=== PATIENT | female | born 1990 | race Caucasian/White ===

== ENCOUNTER 2022-09-23 17:33 | Emergency (ER) | payer OTHER, SELFPAY ==
[2022-09-23 17:53] VITALS: BP 111/72; PULSE 71; RESP 16; TEMP 36.4; O2SAT 100; BMI 23.8
--- NOTE | 2022-09-23 18:00 | CT_ITS ---
[address] [address] Patient Name: CHIQUIS ESTES MRN: [id number] date: 1990 Sex: F Assigned Patient Location: ER Current Patient Location: ER Accession/Order Number: [id number] Exam Date: 09/23/2022 18:50 Report Date: 09/23/2022 19:16 At the request of: JEROEM ALMEIDA Procedure: CT abdomen pelvis w con EXAM: CT abdomen pelvis w con HISTORY: Abdominal pain COMPARISON: None. TECHNIQUE: Axial CT imaging was performed through the abdomen and pelvis with intravenous contrast. Multiplanar reformats were performed. Dose reduction techniques were achieved by using automated exposure control and/or adjustment of mA and/or kV according to patient size and/or use of iterative reconstruction technique. FINDINGS: Lung bases: Lung bases are clear. No pleural effusion. GI upper: Unremarkable. Liver: Normal size and contour. Gallbladder: No significant abnormality. No cholelithiasis. Biliary system: No intra or extrahepatic biliary ductal dilatation. Spleen: Normal size. Pancreas: Unremarkable. Adrenal glands: Normal adrenal glands. Kidneys/ureters: Normal contours. No hydronephrosis. No nephrolithiasis or ureterolithiasis. Vessels: No aneurysm. Lymph Nodes: No lymphadenopathy. Small bowel: No wall thickening or dilatation. Colon: No wall thickening or dilatation. Appendix: No findings of appendicitis. Peritoneal cavity: No free fluid or pneumoperitoneum. Lower : Retroflexed uterus. No significant abnormality of the uterus or adnexa. There is a 1.8 cm corpus luteal cyst in the left ovary. Bones: No acute bony abnormality. Soft tissues: No acute finding. Additional findings: None. CT/CT abdomen pelvis w con IMPRESSION: No acute abnormality.1.8 cm corpus luteal cyst in the left ovary. Electronically authenticated by: WARREN SALAZAR Date: 09/23/2022 19:16
--- NOTE | 2022-09-23 18:02 | ED.ABDPAIN1 ---
HPI - Abdominal Pain General Chief Complaint: Abdominal Pain Stated Complaint: ABDOMINAL PAIN Time Seen by Provider: 09/23/22 17:44 Source: patient Mode of arrival: walk-in Limitations: no limitations History of Present Illness HPI narrative: patient is a 32-year-old female to history of substance abuse well-known to this emergency department who presents to the Emergency Room for a one-week history of diffuse abdominal pain. She reports associated vomiting and diarrhea. She denies urinary symptoms. She reports temperatures as high as 99.0 Fahrenheit. She has had an associated migraine. She is not concerned for and has had a previous tubal ligation. She has had previous C-sections, no other abdominal surgeries. No sick contacts in the home. No upper respiratory symptoms. She states she took Tylenol and Benadryl last night for her migraine and went to bed but no medications of been taken for her abdominal pain or symptoms. Related Data Home Medications Medication Instructions Recorded Confirmed buprenorphine HCl 2 mg sublingual 2 mg sublingual QDAY 09/23/22 09/23/22 tablet clonidine HCl 0.1 mg tablet 0.1 mg PO Q12H 09/23/22 09/23/22 dicyclomine 10 mg capsule 10 mg PO TID 09/23/22 09/23/22 Previous Rx's Medication Instructions Recorded dicyclomine 20 mg tablet 20 mg PO QID PRN abdominal pain 09/23/22 #12 tabs ketorolac 10 mg tablet 10 mg PO TID PRN pain #10 tabs 09/23/22 promethazine 25 mg tablet 25 mg PO Q6H PRN nausea and 09/23/22 vomiting #12 tabs Allergies Allergy/AdvReac Type Severity Reaction Status Date / Time No Known Drug Allergies Allergy Verified 09/23/22 17:56 Review of Systems ROS Constitutional Denies: fever or chills Ears, nose, mouth, and throat Denies: throat pain or neck pain Cardiovascular Denies: chest pain Respiratory Denies: shortness of breath Gastrointestinal Reports: abdominal pain, nausea, vomiting and diarrhea Genitourinary Denies: painful urination Musculoskeletal Reports: back pain; Denies: neck pain Integumentary/Breast Denies: rash Neurological Denies: headache Allergic/Immunologic Denies: hives Exam Narrative Exam Narrative: Gen.: Awake, alert, in no distress Head: Normocephalic, atraumatic ENT: Moist mucous membranes Respiratory: No respiratory distress Cardio: Regular rate and rhythm Gastrointestinal: Abdomen is soft, nondistended and diffusely tender to palpation with no guarding Extremities: Moves extremities equally Psych: Normal mood and affect Neuro: No focal neuro deficit Skin: Warm, dry, intact Constitutional Vital Signs, click to edit/add: Last Vital Signs Temp 97.5 F L 09/23/22 17:53 Pulse 71 09/23/22 17:53 Resp 16 09/23/22 17:53 BP 111/72 09/23/22 17:53 Pulse Ox 100 09/23/22 17:53 O2 Del Method Room Air 09/23/22 17:53 Course Vital Signs Vital signs: Vital Signs Temperature 97.5 F L 09/23/22 17:53 Pulse Rate 71 09/23/22 17:53 Respiratory Rate 16 09/23/22 17:53 Blood Pressure 111/72 09/23/22 17:53 Pulse Oximetry 100 09/23/22 17:53 Oxygen Delivery Method Room Air 09/23/22 17:53 Temperature 97.5 F L 09/23/22 17:53 Pulse Rate 71 09/23/22 17:53 Respiratory Rate 16 09/23/22 17:53 Blood Pressure 111/72 09/23/22 17:53 Pulse Oximetry 100 09/23/22 17:53 Oxygen Delivery Method Room Air 09/23/22 17:53 MDM - Abdominal Pain MDM Narrative Medical decision making narrative: patient treated with IV fluids, Toradol, Levsin, Zofran. Lab studies, urine specimen and test are all within normal limits. CT of the abdomen and pelvis with IV contrast shows a 1.8 cm left ovarian cyst which likely is not accounting for the patient's vomiting, diarrhea and diffuse abdominal pain. She is discharged home with Bentyl and Phenergan to follow-up with PCP. Return to the Emergency Room if symptoms change or worsen. Abdomen is soft and benign at discharge, vital signs within normal limits. Medical Records Attestation: I reviewed the patient's medical records. Lab Data Attestation: I reviewed the patient's lab results. Labs: Lab Results 09/23/22 Range/Units 18:00 WBC 6.3 (4.0-11.0) 10^3/uL RBC 4.50 (4.20-5.40) 10^6/uL Hgb 12.7 (12.0-16.0) g/dL Hct 38.1 (36.0-48.0) % MCV 84.7 (81.0-99.0) fL MCH 28.2 (26.7-34.0) pg MCHC 33.3 (29.9-35.2) g/dL RDW 14.4 (11.0-15.0) % Plt Count 314 (150-450) 10^3/uL MPV 10.3 (9.5-13.5) fL Neut % (Auto) 56.5 (43.0-75.0) % Lymph % (Auto) 34.2 (20.5-60.0) % Dickson % (Auto) 8.4 (1.7-12.0) % Eos % (Auto) 0.0 L (0.9-7.0) % Baso % (Auto) 0.6 (0.2-2.0) % Neut # (Auto) 3.6 (1.4-6.5) 10^3/uL Lymph # (Auto) 2.2 (1.2-3.8) 10^3/uL Dickson # (Auto) 0.5 (0.3-0.8) 10^3/uL Eos # (Auto) 0.0 (0.0-0.7) 10^3/uL Baso # (Auto) 0.0 (0.0-0.1) 10^3/uL Abs Immat Gran (auto) 0.02 (0.00-0.03) 10^3/uL Imm/Tot Granulo (auto) 0.3 (0.0-0.5) % Sodium 140 (136-145) mmol/L Potassium 3.8 (3.5-5.1) mmol/L Chloride 106 (98-107) mmol/L Carbon Dioxide 23.4 (21.0-32.0) mmol/L Anion Gap 14.4 BUN 15.0 (7.0-18.0) mg/dL Creatinine 0.72 (0.55-1.02) mg/dL Est GFR ( Amer) >60 (>=60) Est GFR (Non-Af Amer) >60 (>=60) BUN/Creatinine Ratio 20.8 Glucose 89 (74-106) mg/dL Lactate 1.0 (0.4-2.0) mmol/L Calcium 8.7 (8.5-10.1) mg/dL Total Bilirubin 0.2 (0.2-1.0) mg/dL AST 15 (15-37) U/L ALT 19 (14-59) U/L Alkaline Phosphatase 64 (46-116) U/L Total Protein 7.7 (6.4-8.2) g/dL Albumin 4.1 (3.4-5.0) g/dL Globulin 3.6 g/dL Albumin/Globulin Ratio 1.1 Lipase 89.0 (73.0-393.0) U/L Urine Color Yellow (YELLOW) Urine Clarity Clear (CLEAR) Urine pH 5.5 (5.0-9.0) Ur Specific Warren >=1.030 A (1.005-1.025) Urine Protein Negative (NEG/TRACE) mg/dL Urine Glucose (UA) Negative (NEGATIVE) mg/dL Urine Ketones Negative (NEGATIVE) mg/dL Urine Occult Blood Negative (NEGATIVE) Urine Nitrite Negative (NEGATIVE) Urine Bilirubin Negative (NEGATIVE) Urine Urobilinogen 0.2 (0.2-1.0) EU/dL Ur Leukocyte Esterase Negative (NEGATIVE) Urine HCG, Qual Negative (NEGATIVE) Imaging Data CT scan - abdomen: Attestation: I have reviewed the pertinent imaging results. Radiologist's impression: Procedure: CT abdomen pelvis w con EXAM: CT abdomen pelvis w con HISTORY: Abdominal pain COMPARISON: None. TECHNIQUE: Axial CT imaging was performed through the abdomen and pelvis with intravenous contrast. Multiplanar reformats were performed. Dose reduction techniques were achieved by using automated exposure control and/or adjustment of mA and/or kV according to patient size and/or use of iterative reconstruction technique. FINDINGS: Lung bases: Lung bases are clear. No pleural effusion. GI upper: Unremarkable. Liver: Normal size and contour. Gallbladder: No significant abnormality. No cholelithiasis. Biliary system: No intra or extrahepatic biliary ductal dilatation. Spleen: Normal size. Pancreas: Unremarkable. Adrenal glands: Normal adrenal glands. Kidneys/ureters: Normal contours. No hydronephrosis. No nephrolithiasis or ureterolithiasis. Vessels: No aneurysm. Lymph Nodes: No lymphadenopathy. Small bowel: No wall thickening or dilatation. Colon: No wall thickening or dilatation. Appendix: No findings of appendicitis. Peritoneal cavity: No free fluid or pneumoperitoneum. Lower : Retroflexed uterus. No significant abnormality of the uterus or adnexa. There is a 1.8 cm corpus luteal cyst in the left ovary. Bones: No acute bony abnormality. Soft tissues: No acute finding. Additional findings: None. IMPRESSION: No acute abnormality.1.8 cm corpus luteal cyst in the left ovary. Electronically authenticated by: WARREN SALAZAR Date: 09/23/2022 19:16 Discharge Plan Discharge Chief Complaint: Abdominal Pain Clinical Impression: Abdominal pain Patient Disposition: Home, Self-Care Time of Disposition Decision: 19:24 Condition: Good Mode of Transportation: Private Vehicle Prescriptions / Home Meds: New ketorolac 10 mg tablet 10 mg PO TID PRN (Reason: pain) Qty: 10 0RF dicyclomine 20 mg tablet 20 mg PO QID PRN (Reason: abdominal pain) Qty: 12 0RF promethazine 25 mg tablet 25 mg PO Q6H PRN (Reason: nausea and vomiting) Qty: 12 0RF No Action dicyclomine 10 mg capsule 10 mg PO TID clonidine HCl 0.1 mg tablet 0.1 mg PO Q12H buprenorphine HCl 2 mg tablet, sublingual 2 mg SUBLINGUAL QDAY Instructions: Abdominal Pain (ED) Stand Alone Forms: Portal Instructions Referrals: Physician,Non-Staff, MD [Primary Care Provider] - 1 week Discharge Date/Time: 09/23/22 19:49
[2022-09-23] MEDS: 0.9 % SODIUM CHLORIDE 1,000 ML 999 ML IV (18:25)
[2022-09-23] MEDS: PROMETHAZINE HCL 25 MG/ML VIAL 12.5 MG IV (18:26)
[2022-09-23] MEDS: HYOSCYAMINE SULFATE 0.125 MG TAB.SUBL SL (18:26)
[2022-09-23] MEDS: KETOROLAC TROMETHAMINE 30 MG/ML VIAL 15 MG IVP (18:26)
[2022-09-23 18:28] LABS: Basophils Percent Auto 0.6 % (0.2-2.0); Hematocrit 38.1 % (36.0-48.0); Hemoglobin 12.7 g/dL (12.0-16.0); Immature Granulocytes Abs Auto 0.02 10^3/uL (0.00-0.03); Immature Granulocytes Pct Auto 0.3 % (0.0-0.5); Lymphocytes Absolute Auto 2.2 10^3/uL (1.2-3.8); Lymphocytes Percent Auto 34.2 % (20.5-60.0); Mean Corpuscular HGB Conc 33.3 g/dL (29.9-35.2); Mean Corpuscular Hemoglobin 28.2 pg (26.7-34.0); Mean Corpuscular Volume 84.7 fL (81.0-99.0); Mean Platelet Volume 10.3 fL (9.5-13.5); Monocytes Absolute Auto 0.5 10^3/uL (0.3-0.8); Monocytes Percent Auto 8.4 % (1.7-12.0); Neutrophils Absolute Auto 3.6 10^3/uL (1.4-6.5); Neutrophils Percent Auto 56.5 % (43.0-75.0); Platelet Count 314 10^3/uL (150-450); Red Cell Distribution Width 14.4 % (11.0-15.0); White Blood Count 6.3 10^3/uL (4.0-11.0)
[2022-09-23 18:29] LABS: Bilirubin Urine NEGATIVE (NEGATIVE); Blood Urine NEGATIVE (NEGATIVE); Clarity Urine CLEAR (CLEAR); Color Urine YELLOW (YELLOW); Glucose Urine UA NEGATIVE (NEGATIVE); Ketones Urine NEGATIVE (NEGATIVE); Leukocyte Esterase Urine NEGATIVE (NEGATIVE); Nitrite Urine NEGATIVE (NEGATIVE); Protein Urine NEGATIVE (NEG/TRACE); Specific Gravity Urine >=1.030 (1.005-1.025); Urobilinogen Urine 0.2 EU/dL (0.2-1.0); pH Urine 5.5 (5.0-9.0)
[2022-09-23 18:30] LABS: Urine Microscopic Indicated NO
[2022-09-23 18:42] LABS: HCG Qualitative NEGATIVE (NEGATIVE)
[2022-09-23 18:44] LABS: Alanine Aminotransferase 19 U/L (14-59); Albumin Globulin Ratio 1.1; Albumin Level 4.1 g/dL (3.4-5.0); Alkaline Phosphatase 64 U/L (46-116); Anion Gap 14.4; Aspartate Amino Transferase 15 U/L (15-37); BUN Creatinine Ratio 20.8; Bilirubin Total 0.2 mg/dL (0.2-1.0); Calcium 8.7 mg/dL (8.5-10.1); Carbon Dioxide 23.4 mmol/L (21.0-32.0); Chloride 106 mmol/L (98-107); Estimated GFR (African America >60 (>=60); Estimated GFR (Non-African Ame >60 (>=60); Globulin 3.6 g/dL; Glucose 89 mg/dL (74-106); Potassium 3.8 mmol/L (3.5-5.1); Sodium 140 mmol/L (136-145); Total Protein 7.7 g/dL (6.4-8.2)
== END 2022-09-23 19:49 | disposition home or self-care (01) ==
PROVIDERS: Physician Assistant; Emergency Provider Emergency Medicine Emergency Medical Services
DX: R10.9 Unspecified abdominal pain (principal); N83.12 Corpus luteum cyst of left ovary; F19.11 Other psychoactive substance abuse, in remission; Z79.899 Other long term (current) drug therapy
CPT/HCPCS: 36415; 74177; 80053; 81003; 83605; 83690; 84703; 85025; 96374; 96375; 99285; Q9967

== ENCOUNTER 2023-02-07 21:57 | Emergency (ER) | payer OTHER, SELFPAY ==
[2023-02-07 22:02] VITALS: BP 122/71; PULSE 65; RESP 16; TEMP 36.6; O2SAT 98; BMI 24.0
--- NOTE | 2023-02-07 22:41 | ED.GENADUL1 ---
HPI - General Adult General Stated complaint: POSSIBLE CONCUSION Time Seen by Provider: 02/07/23 22:10 Source: patient Mode of arrival: walk-in Limitations: no limitations History of Present Illness HPI narrative: 2-3 days ago the patient fell and struck the right side of her head. NO LOC and no seizure activity or vomiting since However she admits to headache, nausea and some photophobia. She is concerned that she has a concussion and wants a CT of her head to check. She took tylenol around 2pm today. No neck or back pain. She does not take blood thinners. Related Data Home Medications Medication Instructions Recorded Confirmed ropinirole 0.25 mg tablet mg 02/07/23 trazodone 100 mg tablet mg 02/07/23 Previous Rx's Medication Instructions Recorded ondansetron 4 mg disintegrating 4 mg PO Q6H PRN nausea, headache 02/07/23 tablet #20 tabs Allergies Allergy/AdvReac Type Severity Reaction Status Date / Time No Known Drug Allergies Allergy Verified 02/07/23 22:06 PFSH PFS Social History Smoking status: Current every day smoker Exam Narrative Exam Narrative: Nurses notes and vital signs reviewed and patient is not hypoxic. afebrile General: Well-appearing and in no apparent distress. Skin: Warm, dry, no pallor noted. No rash. Head: Normocephalic, atraumatic. Neck: Supple, non-tender. Eye: Pupils are equal, round and EOMI. No scleral icterus. Ears, Nose, Mouth, and Throat: TM are clear, no nasal mucosal hypertrophy. Oral mucosa is moist, no posterior oropharynx erythema, uvula is mid-line Cardiovascular: Regular Rate and Rhythm without murmur, gallop or rub. Respiratory: No accessory muscle use or respiratory distress. Lungs are clear to auscultation, no wheezing, rales or rhonchi Musculoskeletal: normal ROM Neurological: A&O x4. No cranial nerve dysfunction observed. No truncal ataxia. Moves all extremities. Sensation intact. Psychiatric: Cooperative and interactive. Normal mood and affect. Constitutional Vital Signs, click to edit/add: Last Vital Signs Temp 97.8 F 02/07/23 22:02 Pulse 65 02/07/23 22:02 Resp 16 02/07/23 22:02 BP 122/71 02/07/23 22:02 Pulse Ox 98 02/07/23 22:02 O2 Del Method Room Air 02/07/23 22:02 Course Vital Signs Vital signs: Vital Signs Temperature 97.8 F 02/07/23 22:02 Pulse Rate 65 02/07/23 22:02 Respiratory Rate 16 02/07/23 22:02 Blood Pressure 122/71 02/07/23 22:02 Pulse Oximetry 98 02/07/23 22:02 Oxygen Delivery Method Room Air 02/07/23 22:02 Temperature 97.8 F 02/07/23 22:02 Pulse Rate 65 02/07/23 22:02 Respiratory Rate 16 02/07/23 22:02 Blood Pressure 122/71 02/07/23 22:02 Pulse Oximetry 98 02/07/23 22:02 Oxygen Delivery Method Room Air 02/07/23 22:02 Medical Decision Making MDM Narrative Medical decision making narrative: patient has normal neurological examination. She is given reassurance. We discussed the fact that a concussion is not diagnosed on CT but instead a clinical diagnosis based on the patient's symptoms following a head injury. She was given Zofran in the emergency Department and discharged home with a prescription for more Zofran to take at home for her symptoms. She was encouraged take Tylenol as needed for any continued headache. Discharge Plan Discharge Clinical Impression: Concussion, Head injury Patient Disposition: Home, Self-Care Time of Disposition Decision: 22:42 Prescriptions / Home Meds: New ondansetron 4 mg tablet,disintegrating 4 mg PO Q6H PRN (Reason: nausea, headache) Qty: 20 0RF No Action trazodone 100 mg tablet ropinirole 0.25 mg tablet Instructions: Concussion (ED), Head Injury (ED) Stand Alone Forms: Portal Instructions Referrals: Physician,Non-Staff, MD [Primary Care Provider] - 1 week Discharge Date/Time: 02/07/23 22:56
[2023-02-07] MEDS: ONDANSETRON 4 MG RAPDIS TABLET SL (22:51)
== END 2023-02-07 22:56 | disposition home or self-care (01) ==
PROVIDERS: Emergency Provider Emergency Medicine
DX: S06.0X0A Concussion without loss of consciousness, initial encounter (principal); W19.XXXA Unspecified fall, initial encounter; Z79.899 Other long term (current) drug therapy; F17.210 Nicotine dependence, cigarettes, uncomplicated
CPT/HCPCS: 99283

== ENCOUNTER 2023-02-17 19:24 | Emergency (ER) | payer OTHER, SELFPAY ==
[2023-02-17 19:27] VITALS: BP 142/79; PULSE 84; RESP 16; TEMP 37; O2SAT 99
--- NOTE | 2023-02-17 19:49 | PC.NURSE ---
02/05 PT FELL AT HOME PT STATES SHE TOOK TRAZODONE ON AN EMPTY STOMACH AT THE TIME OF FALL - PT CAME TO ER SEVERAL DAYS AFTER FOR CONCUSSIVE LIKE SYMPTOMS PT WAS DISCHARGED HOME WITHOUT SCAN PT NOW RETURNS FOR CONCUSSIVE LIKE SYMPTOMS AND ABDOMINAL PAIN PT STATES SINCE THE FALL SHE HAS BEEN HAVING PERSISTENT HEADACHES - SPACINESS - UNABLE TO THINK OF WORDS AND GET THEM OUT PT STATES ABDOMINAL PAIN STARTED FOLLOWED BY SEVERAL BLACK BOWEL MOVEMENTS DURING ASSESMENT PT IS UNABLE TO GET WORDS OUT CORRECTLY SEVERAL TIMES PT STATES EN ROUTE TO HOSPITAL SHE MISSED HER EXIT AND IT SCARED HER REALIZING SHE DID NOT KNOW EXACTLY WHERE SHE WAS/WHAT SHE WAS DOING
--- NOTE | 2023-02-17 19:57 | ECG_ITS ---
[facility] Test Date: 2023-02-17 Pat Name: CHIQUIS ESTES Department: Room: - Gender: Female Route Returner: : 1990 Requested By: [id number] Order Number: [id number] Reading MD: RODERICK STAFFORD Measurements Intervals [place] Rate: 60 P: 50 OR: 154 QRS: 95 QRSD: 92 T: 73 QT: 402 QTc: 404 Interpretive Statements 1100 Sinus rhythm 7102 Moderate right axis deviation 9110 normal ECG No previous ECG available for comparison Electronically Signed On 02-18-2023 7:13:58 EST by RODERICK STAFFORD
--- NOTE | 2023-02-17 19:57 | ED.GENADUL1 ---
HPI - General Adult General Chief complaint: Headache Stated complaint: HEADACHE Time Seen by Provider: 02/17/23 19:57 Source: patient Mode of arrival: walk-in Limitations: no limitations History of Present Illness HPI narrative: This 32-year-old female presents for evaluation of multiple complaints. She states that she has a generalized headache that she has had intermittently for the past 2 weeks after she fell and struck the right side of her face on her bed. The patient states that she took a half a trazodone that she was prescribed for sleep on an empty stomach and she woke up and felt lightheaded and ended up passing out. She was seen in this emergency department following that and told that she likely had a concussion. Since that time she has been having intermittent episodes of headaches, fatigue, confusion and feeling foggy. She has also had intermittent lower abdominal pain with cramping and passing black tarry stool. She states that she had an appointment in [place] with a doctor who is planning to do a colonoscopy on her on February 27. She does not remember the name of the doctor. She does not know if he is a quality nurse or surgeon. She states she has been taking 600 mg of ibuprofen in the morning and then again at night as well as Tylenol for her abdominal pain and cramping and headaches. She is also taking Pepto Bismol for her abdominal pain and cramps. She has no focal neurologic symptoms such as slurred speech, confusion, upper or lower extremity weakness. She denies possibility of as she has had a tubal ligation and has 6 children. The patient states that she has lost 6 or 7 pounds because she cannot eat. She has had some nausea but no vomiting. She has intermittent diarrhea but also has formed stools. She states that on the way to the emergency department today she was talking to her boyfriend and then became foggy and somewhat forgot where she was going and drove past the road to get here. 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 Related Data Home Medications Medication Instructions Recorded Confirmed ropinirole 0.25 mg tablet mg 02/07/23 trazodone 100 mg tablet mg 02/07/23 omeprazole 40 mg capsule,delayed mg 02/17/23 release Previous Rx's Medication Instructions Recorded ondansetron 4 mg disintegrating 4 mg PO Q6H PRN nausea, headache 11/25/23 tablet #20 tabs Allergies Allergy/AdvReac Type Severity Reaction Status Date / Time No Known Drug Allergies Allergy Verified 02/17/23 19:31 Review of Systems ROS Status of ROS 10 or more systems reviewed and unremarkable except as noted in history and below [facility] Social History Smoking status: Current some day smoker Exam Narrative Exam Narrative: Nurses note and vital signs reviewed and patient is not hypoxic. General: Alert, thin, non-toxic female, no respiratory distress Skin: Warm, dry, no pallor noted. There is no rash noted. Head: Normocephalic, atraumatic Eye: Normal conjunctiva, no drainage, EOMI. PERRL Ears, Nose, Mouth, and Throat: oral mucosa is moist. Nares patent. Cardiovascular: Regular Rate and Rhythm S1S2, no murmurs, rubs or gallops, pulses are brisk and equal bilaterally Respiratory: Patient is in no distress, no accessory muscle use, lungs are clear to auscultation, no wheezing, rales or rhonchi Back: non-tender, no CVA tenderness bilaterally to percussion. GI: Normal bowel sounds, L tenderness to the left lower quadrant, rectal exam performed with a small amount of stool on the fingertip Musculoskeletal: The patient has no evidence of calf tenderness, no pitting edema, symmetrical pulses noted bilaterally Neurological: A&O x4, normal speech, Ambulatory with a steady gait, no focal deficits Psychiatric: Cooperative Constitutional Vital Signs, click to edit/add: Last Vital Signs Temp 98.6 F 02/17/23 19: Pulse 66 02/17/23 21:00 Resp 30 H 02/17/23 21:00 BP 142/79 H 02/17/23 19:27 Pulse Ox 99 02/17/23 19:27 O2 Del Method Room Air 02/17/23 19:27 Course Vital Signs Vital signs: Vital Signs Temperature 98.6 F 02/17/23 19:27 Pulse Rate 84 02/17/23 19:27 Respiratory Rate 16 02/17/23 19:27 Blood Pressure 142/79 H 02/17/23 19:27 Pulse Oximetry 99 02/17/23 19:27 Oxygen Delivery Method Room Air 02/17/23 19:27 Temperature 98.6 F 02/17/23 19:27 Pulse Rate 66 02/17/23 21:00 Respiratory Rate 30 H 02/17/23 21:00 Blood Pressure 142/79 H 02/17/23 19:27 Pulse Oximetry 99 02/17/23 19:27 Oxygen Delivery Method Room Air 02/17/23 19:27 Medical Decision Making MDM Narrative Medical decision making narrative: 32-year-old female presents for evaluation of multiple complaints including headaches, episodes of feeling foggy and confused after striking her head several weeks ago and being diagnosed with a concussion. She also states that she has chronic abdominal pain which is been increasingly bad for the past several weeks and she has been having black tarry stools. She has been taking 1200 mg of ibuprofen and Tylenol as well as Pepto-Bismol for her abdominal pain. She complains of nausea but has not had any vomiting. She denies the possibility of . She has not had a fever. The patient does have a history of substance abuse and has been clean from heroin for the past 7 months. She does not think that her gastrointestinal symptoms are related to not using opiate narcotics anymore. The patient's physical exam was benign. She was hyperventilating with a respiratory rate of 30 upon arrival. Her lungs are clear, abdomen is soft with some tenderness in the left lower quadrant. I did perform a rectal exam but there was minimal stool in the rectum and the patient needed to use the bathroom and was able to provide stool on a guaiac card. The guaiac/occult blood was negative as reported by the lab. Due to the fact that she has been taking large doses of ibuprofen with black tarry stools and lower abdominal pain I ordered a CT angiogram of the abdomen and pelvis. CT scan is included in the body of this report and basically does not show any acute findings related to the patient's symptoms. Routine labs were also reviewed. Her labs are normal. Her hemoglobin is unchanged from a previous hemoglobin done in September of this year. Electrolytes are normal With the exception of a mildly low potassium. Potassium was replaced orally.. test was negative. Lactic acid was normal. He was medicated emergency department with IV fluids, Pepcid and Zofran with clinical improvement. Reevaluation her abdominal pain was improved. I discussed the results of her CT scan with her and gave her a copy to share with the quality nurse or surgeon she is seeing next week for a colonoscopy. She was discharged home with a prescription for Zofran and Bentyl to use as needed for ongoing or worsening pain. Medical Records Medical records narrative: The [address] [address] [address] Scan Report Signed Patient: CHIQUIS ESTES MR#: [id number] : 1990 Acct:[id number] Age/Sex: 32 / F ADM Date: 02/17/23 Loc: ER Attending Dr: Ordering Physician: Nohelia Lopez Date of Service: 02/17/23 Procedure(s): CT angio abdomen pelvis Accession Number(s): [id number] cc: Physician,Non-Staff MChen~ The [place] [id number] Patient Name: CHIQUIS ESTES MRN: [id number] date: 1990 Sex: F Assigned Patient Location: ER Current Patient Location: ER Accession/Order Number: [id number] Exam Date: 02/17/2023 20:20 Report Date: 02/17/2023 21:16 At the request of: NOHELIA LOPEZ Procedure: CT angio abdomen pelvis EXAM: CT angiogram of the abdomen and pelvis using 100 mL of IV iodinated contrast. 3D images were generated on an independent workstation for better evaluation of the vasculature. Dose reduction technique used: Automated exposure control and/or adjustment of the mA and/or kV according to patient size and/or use of iterative reconstruction technique. REASON FOR EXAM: abd pain, early satiety COMPARISON: CT scan dated 09/23/2022 FINDINGS: No aortic dissection, aneurysm, penetrating atheromatous ulcer or intramural hematoma. Celiac, superior mesenteric, bilateral renal, inferior mesenteric, bilateral common iliac, bilateral external iliac, bilateral common femoral arteries are patent without aneurysm, dissection or significant stenosis. Normal appendix. No free intraperitoneal air. No free fluid in the abdomen or pelvis. No dilated or thickened loops of small bowel or colon. No hydronephrosis or obstructing renal or ureteral calculi. Liver, pancreas, spleen, bilateral kidneys, and bilateral adrenal glands are otherwise unremarkable. Remainder unremarkable. CT/CT angio abdomen pelvis IMPRESSION: Unremarkable CT angiogram of the abdomen and pelvis. Electronically authenticated by: RASHARD EAST Date: 02/17/2023 21:16 Lab Data Lab results reviewed: Yes I reviewed the patient's lab results Labs: Lab Results 02/17/23 02/17/23 Range/Units 19:40 20:13 WBC 6.2 (4.0-11.0) 10^3/uL RBC 4.47 (4.20-5.40) 10^6/uL Hgb 12.4 (12.0-16.0) g/dL Hct 38.4 (36.0-48.0) % MCV 85.9 (81.0-99.0) fL MCH 27.7 (26.7-34.0) pg MCHC 32.3 (29.9-35.2) g/dL RDW 14.3 (11.0-15.0) % Plt Count 284 (150-450) 10^3/uL MPV 11.1 (9.5-13.5) fL Neut % (Auto) 58.1 (43.0-75.0) % Lymph % (Auto) 34.9 (20.5-60.0) % [place] % (Auto) 6.3 (1.7-12.0) % Eos % (Auto) 0.0 L (0.9-7.0) % Baso % (Auto) 0.5 (0.2-2.0) % Neut # (Auto) 3.6 (1.4-6.5) 10^3/uL Lymph # (Auto) 2.2 (1.2-3.8) 10^3/uL [place] # (Auto) 0.4 (0.3-0.8) 10^3/uL Eos # (Auto) 0.0 (0.0-0.7) 10^3/uL Baso # (Auto) 0.0 (0.0-0.1) 10^3/uL Abs Immat Gran (auto) 0.01 (0.00-0.03) 10^3/uL Imm/Tot Granulo (auto) 0.2 (0.0-0.5) % Sodium 138 (136-145) mmol/L Potassium 3.2 L (3.5-5.1) mmol/L Chloride 102 (98-107) mmol/L Carbon Dioxide 24.2 (21.0-32.0) mmol/L Anion Gap 15.0 BUN 13.0 (7.0-18.0) mg/dL Creatinine 0.77 (0.55-1.02) mg/dL Est GFR ( Amer) >60 (>=60) Est GFR (Non-Af Amer) >60 (>=60) BUN/Creatinine Ratio 16.9 Glucose 125 H (74-106) mg/dL Lactate 1.3 (0.4-2.0) mmol/L Calcium 8.7 (8.5-10.1) mg/dL Total Bilirubin 0.2 (0.2-1.0) mg/dL AST 21 (15-37) U/L ALT 23 (14-59) U/L Alkaline Phosphatase 60 (46-116) U/L Total Protein 7.6 (6.4-8.2) g/dL Albumin 3.9 (3.4-5.0) g/dL Globulin 3.7 g/dL Albumin/Globulin Ratio 1.1 Lipase 24.0 (16.0-77.0) U/L Serum HCG, Qual Negative (NEGATIVE) Stool Occult Blood Negative ECG Data Attestation: I personally reviewed and interpreted this ECG as follows: (Sinus rhythm at 60 beats for minute, normal axis, normal intervals, right axis deviation, no acute ST segment elevation or T-wave inversion) Discharge Plan Discharge Chief Complaint: Headache Clinical Impression: Abdominal pain, Hypokalemia Patient Disposition: Home, Self-Care Time of Disposition Decision: 21:50 Condition: Good Prescriptions / Home Meds: No Action trazodone 100 mg tablet ropinirole 0.25 mg tablet ondansetron 4 mg tablet,disintegrating 4 mg PO Q6H PRN (Reason: nausea, headache) Qty: 20 0RF omeprazole 40 mg capsule,delayed release(DR/EC) Instructions: Potassium Content of Foods List (ED), Hypokalemia (ED), Abdominal Pain (ED) Stand Alone Forms: Portal Instructions Referrals: Physician,Non-Staff, MD [Primary Care Provider] - 1 week Discharge Date/Time: 02/17/23 22:22
--- NOTE | 2023-02-17 20:01 | CT_ITS ---
The [address] [address] Patient Name: CHIQUIS ESTES MRN: [id number] date: 1990 Sex: F Assigned Patient Location: ER Current Patient Location: ER Accession/Order Number: [id number] Exam Date: 02/17/2023 20:20 Report Date: 02/17/2023 21:16 At the request of: MAURICIO MARKER Procedure: CT angio abdomen pelvis EXAM: CT angiogram of the abdomen and pelvis using 100 mL of IV iodinated contrast. 3D images were generated on an independent workstation for better evaluation of the vasculature. Dose reduction technique used: Automated exposure control and/or adjustment of the mA and/or kV according to patient size and/or use of iterative reconstruction technique. REASON FOR EXAM: abd pain, early satiety COMPARISON: CT scan dated 09/23/2022 FINDINGS: No aortic dissection, aneurysm, penetrating atheromatous ulcer or intramural hematoma. Celiac, superior mesenteric, bilateral renal, inferior mesenteric, bilateral common iliac, bilateral external iliac, bilateral common femoral arteries are patent without aneurysm, dissection or significant stenosis. Normal appendix. No free intraperitoneal air. No free fluid in the abdomen or pelvis. No dilated or thickened loops of small bowel or colon. No hydronephrosis or obstructing renal or ureteral calculi. Liver, pancreas, spleen, bilateral kidneys, and bilateral adrenal glands are otherwise unremarkable. Remainder unremarkable. CT/CT angio abdomen pelvis IMPRESSION: Unremarkable CT angiogram of the abdomen and pelvis. Electronically authenticated by: RASHARD EAST Date: 02/17/2023 21:16
[2023-02-17 20:07] LABS: Basophils Percent Auto 0.5 % (0.2-2.0); Hematocrit 38.4 % (36.0-48.0); Hemoglobin 12.4 g/dL (12.0-16.0); Immature Granulocytes Abs Auto 0.01 10^3/uL (0.00-0.03); Immature Granulocytes Pct Auto 0.2 % (0.0-0.5); Lymphocytes Absolute Auto 2.2 10^3/uL (1.2-3.8); Lymphocytes Percent Auto 34.9 % (20.5-60.0); Mean Corpuscular HGB Conc 32.3 g/dL (29.9-35.2); Mean Corpuscular Hemoglobin 27.7 pg (26.7-34.0); Mean Corpuscular Volume 85.9 fL (81.0-99.0); Mean Platelet Volume 11.1 fL (9.5-13.5); Monocytes Absolute Auto 0.4 10^3/uL (0.3-0.8); Monocytes Percent Auto 6.3 % (1.7-12.0); Neutrophils Absolute Auto 3.6 10^3/uL (1.4-6.5); Neutrophils Percent Auto 58.1 % (43.0-75.0); Platelet Count 284 10^3/uL (150-450); Red Blood Count 4.47 10^6/uL (4.20-5.40); Red Cell Distribution Width 14.3 % (11.0-15.0); White Blood Count 6.2 10^3/uL (4.0-11.0)
[2023-02-17 20:10] VITALS: PULSE 63; RESP 20
[2023-02-17 20:12] LABS: HCG Qualitative NEGATIVE (NEGATIVE)
[2023-02-17] MEDS: ONDANSETRON PF 4 MG/2 ML VIAL IV (20:14)
[2023-02-17] MEDS: FAMOTIDINE/PF 20 MG/2 ML VIAL IV (20:14)
[2023-02-17] MEDS: 0.9 % SODIUM CHLORIDE 1,000 ML 1000 ML IV (20:14)
[2023-02-17 20:17] LABS: Alanine Aminotransferase 23 U/L (14-59); Albumin Globulin Ratio 1.1; Albumin Level 3.9 g/dL (3.4-5.0); Alkaline Phosphatase 60 U/L (46-116); Aspartate Amino Transferase 21 U/L (15-37); BUN Creatinine Ratio 16.9; Bilirubin Total 0.2 mg/dL (0.2-1.0); Calcium 8.7 mg/dL (8.5-10.1); Carbon Dioxide 24.2 mmol/L (21.0-32.0); Chloride 102 mmol/L (98-107); Estimated GFR (African America >60 (>=60); Estimated GFR (Non-African Ame >60 (>=60); Globulin 3.7 g/dL; Glucose 125 mg/dL (74-106); Potassium 3.2 mmol/L (3.5-5.1); Sodium 138 mmol/L (136-145); Total Protein 7.6 g/dL (6.4-8.2)
[2023-02-17 20:23] LABS: Lactate/Lactic Acid 1.3 mmol/L (0.4-2.0)
[2023-02-17 20:34] VITALS: PULSE 66; RESP 13
[2023-02-17 20:40] VITALS: PULSE 66; RESP 21
[2023-02-17 20:50] VITALS: PULSE 61; RESP 17
[2023-02-17 21:00] VITALS: PULSE 66; RESP 30
[2023-02-17 21:44] LABS: Occult Blood Negative
[2023-02-17] MEDS: POTASSIUM CHLORIDE 10 MEQ ER TABLET 20 MEQ PO (22:15)
== END 2023-02-17 22:22 | disposition home or self-care (01) ==
PROVIDERS: Emergency Provider Emergency Medicine
DX: R10.9 Unspecified abdominal pain (principal); E87.6 Hypokalemia; Z98.51 Tubal ligation status; F11.11 Opioid abuse, in remission; F17.200 Nicotine dependence, unspecified, uncomplicated; R51.9 Headache, unspecified
CPT/HCPCS: 36415; 74174; 80053; 83605; 83690; 84703; 85025; 93005; 96361; 96374; 96375; 99285; G0328; Q9967

== ENCOUNTER 2023-02-23 18:00 | Emergency (ER) | payer OTHER, SELFPAY ==
[2023-02-23 18:09] VITALS: BP 103/63; PULSE 78; RESP 18; TEMP 37.3; O2SAT 98; BMI 21.9
== END 2023-02-23 18:29 | disposition left against medical advice (07) ==
PROVIDERS: Emergency Provider Emergency Medicine Emergency Medical Services
DX: Z53.21 Procedure and treatment not carried out due to patient leaving prior to being seen by health care provider (principal)

== ENCOUNTER 2023-08-14 02:23 | Emergency (ER) | payer OTHER, SELFPAY ==
[2023-08-14 02:29] VITALS: BP 143/88; PULSE 78; TEMP 36.5; O2SAT 100; BMI 21.8
--- NOTE | 2023-08-14 02:46 | ED.ALLEREA1 ---
HPI - Allergic Reaction General Chief complaint: Allergic Reaction Stated complaint: allergic reaction Time Seen by Provider: 08/14/23 02:26 Source: patient Mode of arrival: walk-in Limitations: no limitations History of Present Illness HPI narrative: 33-year-old female presents for itching and allergic reaction. She believes it is due to some clothing that she got from a friend and it had been washed in a detergent that the patient is not aware of. Whenever she puts the clothing on she started itching. She took a dose of Benadryl at home. She complains of some bumps on her arms. No tongue swelling or difficulty breathing or swallowing. This started yesterday. Related Data Home Medications ?Medication ?Instructions ?Recorded ?Confirmed ropinirole 0.25 mg tablet mg 02/07/23 trazodone 100 mg tablet mg 02/07/23 omeprazole 40 mg capsule,delayed mg 02/17/23 release Previous Rx's ?Medication ?Instructions ?Recorded ondansetron 4 mg disintegrating 4 mg PO Q6H PRN nausea, headache 02/07/23 tablet #20 tabs prednisone 10 mg tablet See Rx Instructions .Route 08/14/23 .COMPLEX #30 tabs Allergies Allergy/AdvReac Type Severity Reaction Status Date / Time No Known Drug Allergies Allergy Verified 08/14/23 02:35 Review of Systems ROS Narrative A ten point review of systems is negative except as noted above. PFSH PFSH Social History Smoking status: Current every day smoker Exam Narrative Exam Narrative: Nurses note and vital signs reviewed and patient is not hypoxic. General: The patient appears well and in no apparent distress. Patient is resting comfortably on cart. Skin: Warm, dry, no pallor noted. There are small erythematous slightly raised areas primarily on her arms. Tongue not swollen. She is handling her oral secretions well. Head: Normocephalic, atraumatic Eye: Normal conjunctiva, no drainage Ears, Nose, Mouth, and Throat: oral mucosa is moist. Nares patent. Cardiovascular: Regular Rate and Rhythm Respiratory: Patient is in no distress, no accessory muscle use, lungs are clear to auscultation, no wheezing, rales or rhonchi Back: non-tender GI: Soft and nontender Musculoskeletal: No joint swelling Neurological: Awake and alert Psychiatric: Cooperative Constitutional Vital Signs, click to edit/add: Last Vital Signs Temp 97.7 F 08/14/23 02:29 Pulse 78 08/14/23 02:29 Resp 18 08/14/23 02:29 BP 143/88 H 08/14/23 02:29 Pulse Ox 100 08/14/23 02:29 O2 Del Method Room Air 08/14/23 02:29 Course Vital Signs Vital signs: Vital Signs Temperature 97.7 F 08/14/23 02:29 Pulse Rate 78 08/14/23 02:29 Respiratory Rate 18 08/14/23 02:29 Blood Pressure 143/88 H 08/14/23 02:29 Pulse Oximetry 100 08/14/23 02:29 Oxygen Delivery Method Room Air 08/14/23 02:29 Temperature 97.7 F 08/14/23 02:29 Pulse Rate 78 08/14/23 02:29 Respiratory Rate 18 08/14/23 02:29 Blood Pressure 143/88 H 08/14/23 02:29 Pulse Oximetry 100 08/14/23 02:29 Oxygen Delivery Method Room Air 08/14/23 02:29 MDM - Allergic Reaction MDM Narrative Medical decision making narrative: The patient appears to have had an allergic reaction to laundry detergent. She was given IM Solu-Medrol. She is already taken Benadryl at home and she states she has 6 children so she is going to take that sparingly. She is also prescribed prednisone. Treatment diagnosis and follow-up were discussed with the patient. Differential Diagnosis Differential diagnosis: Likely allergic reaction, contact dermatitis, viral enanthem and urticaria Discharge Plan Discharge Stand Alone Forms: Portal Instructions Chief Complaint: Allergic Reaction Clinical Impression: Allergic reaction Patient Disposition: Home, Self-Care Time of Disposition Decision: 02:44 Condition: Good Mode of Transportation: Private Vehicle Prescriptions / Home Meds: New prednisone 10 mg tablet See Rx Instructions .ROUTE .COMPLEX Qty: 30 0RF Rx Instructions: 4 by mouth daily for three days then 3 by mouth daily for three days then 2 by mouth daily for three days then 1 by mouth daily for three days No Action trazodone 100 mg tablet ropinirole 0.25 mg tablet ondansetron 4 mg tablet,disintegrating 4 mg PO Q6H PRN (Reason: nausea, headache) Qty: 20 0RF omeprazole 40 mg capsule,delayed release(DR/EC) Print Language: Persian Instructions: General Allergic Reaction (ED) Referrals: Physician,Non-Staff, MD [Primary Care Provider] - 1 week
--- OUTSIDE RECORDS SUMMARY | 2023-08-14 02:48 | XMS_ITS | CCD ---
Author Organization [facility] Care Team Providers Care City Auditor Name Role Phone PROVIDER, UNKNOWN Attending Unavailable PROVIDER, UNKNOWN Admitting Unavailable PROVIDER, UNKNOWN Admitting Unavailable PROVIDER, UNKNOWN Attending Unavailable IGNACIO SANDS Admitting Unavailable REQUEST, IP SOCIAL WORK SERVICE Consulting Unavailable TC PHPIPS Attending Unavailable IPCON Consulting Unavailable JOSUÉ PARHAM Attending Unavailable JOSUÉ PARHAM Admitting Unavailable MD Robin Renee Emergency Provider NO FAMILY, PHYSICIAN Primary Care Provider Unava ilable Unavailable Primary Care Provider Unavailsu WHITEHEAD, DR WALKER Primary Care Unavailable JAYLA, DR ROMEO Admitting Unavailable JAYLA, DR ROMEO Attending Unavailable JAYLA, DR ROMEO Consulting Unavailable CHARLEY, DR WALKER Primary Care Unavailable BRANDI MERINO Admitting Unavailable BRANDI MERINO Attending Unavailable BRANDI MERINO Consulting Unavailable CHARLEY, DR WALKER Primary Care Unavailable SHERWIN, DR OFELIA Ayers Consulting Unavailable SHERWIN, DR OFELIA Ayers Admitting Unavailable SHERWIN, DR OFELIA Ayers Attending Unavailable MANISH LEUNG Consulting Unavailable CHARLEY, DR WALKER Primary Care Unavailable DARON, DR MENDY Giron Admitting Unavailsu NERI, DR MENDY Giron Attending Unavailsu NERI, DR MENDY Giron Consulting Unavailsu e CHARLEY, DR WALKER Primary Care Unavailable SCOTTIE LACEY Admitting Unavailable SCOTTIE LACEY Attending Unavailable LESLY DUARTE Consulting Unavailable SCOTTIE LACEY Consulting Unavailable CHRISTOPHE SOTOMAYOR Referring Unavailable CHRISTOPHE SOTOMAYOR Referring Unavailable CHRISTOPHE SOTOMAYOR Referring Unavailable MD Charli Irving Attending Provider [phone] [facility] Primary Care Provider Charli Irving Admitting Unavailable Charli Irving Attending Unavailable [facility] Primary Care Unavaila ble Charli Irving Attending Unavailable [facility] Primary Care Unavaila ble Kendaltty, Charli J Admitting Unavailable Charli Irving Unavailable Unavailable Primary Care Provider Unavailabl e Medications Current Medications Medication Drug Class(es) Dates Sig (Normalized) Sig (Original) buprenorphine 8 mg / naloxone 2 mg sublingual tablet (2 sources) Partial Opioid Agonist, Opioid Antagonist Start: 10-08-2021 take 1 tablet under the tongue once daily Buprenorphine-Nalox one (Suboxone) 8-2 mg Tablet, Sublingual Active 1 TAB SUBLINGUAL Daily October 07, 2021 11:00pm 24 hr buPROPion hydrochloride 300 mg extended release oral tablet (2 sources) Aminoketone Start: 10-08-2021 take 300 mg by mouth once daily Bupropion Hcl Active 300 MG PO Daily October 07, 2021 11:00pm dicyclomine hydrochloride 20 mg oral tablet (1 source) Anticholinergic take 1 tablet by mouth every six hours Dicyclomine HCl 20 MG 1 tablet Orally Four times a day for 10 days Active famotidine 40 mg oral tablet (1 source) Histamine-2 Receptor Antagonist Start: 01-14-2023 take 1 tablet by mouth twice daily at dinner Famotidine 40 MG 1 tablet prior to morning and evening meals Orally Twice a day for 30 days Jan, Active hydrOXYzine pamoate 50 mg oral capsule (1 source) Antihistamine take 1 capsule by mouth twice daily as needed hydrOXYzine Pamoate 50 MG 1 capsule Orally twice a day (bid) as needed (prn) Active ibuprofen 600 mg oral tablet (1 source) Nonsteroidal Anti-inflammatory Drug take 1 tablet by mouth three times daily at mealtime as needed Ibuprofen 600 MG 1 tablet with food or milk as needed Orally Three times a day for 10 days Active nitrofurantoin, macrocrystals 25 mg / nitrofurantoin, monohydrate 75 mg oral capsule (2 sources) Nitrofuran Antibacterial Start: 10-08-2021 take 1 capsule by mouth every twelve hours at mealtime Nitrofurantoin Monohyd/M-Cryst (Macrobid) 100 mg capsule Active 100 MG PO Q12H October 07, 2021 11:00pm Administer with a meal/food: swallow whole; do not open, crush, dissolve, or chew omeprazole 40 mg delayed release oral capsule (1 source) Proton Pump Inhibitor Start: 01-14-2023 take 1 capsule by mouth once daily Omeprazole 40 MG 1 capsule 30 minutes before morning meal Orally Once a day for 30 days Jan, Active prazosin 2 mg oral capsule (2 sources) alpha-Adrenergic Kelsey Start: 10-08-2021 take 2 mg by mouth at bedtime Prazosin Active 2 MG PO Bedtime October 07, 2021 11:00pm QUEtiapine 100 mg oral tablet (2 sources) Atypical Antipsychotic Start: 10-08-2021 take 1 tablet by mouth at bedtime Quetiapine (Seroquel) 100 mg Tablet Active 100 MG PO Bedtime October 07, 2021 11:00pm rOPINIRole 0.25 mg oral tablet (2 sources) Nonergot Dopamine Agonist take 1 tablet by mouth once daily at bedtime rOPINIRole HCl 0.25 MG 1 tablet 1 to 3 hours before bedtime Orally Once a day for 30 day(s) Active Requip Active traZODone hydrochloride 100 mg oral tablet (3 sources) Serotonin Reuptake Inhibitor Start: 10-08-2021 take 100 mg by mouth at bedtime Trazodone Active 100 MG PO Bedtime October 07, 2021 11:00pm Completed/Discontinued Medications Medication Drug Class(es) Dates Sig (Normalized) Sig (Original) cloNIDine hydrochloride 0.1 mg oral tablet (1 source) Central alpha-2 Adrenergic Agonist cloNIDine HCl 0.1 MG 1 tablet Orally twice a day (bid) as needed (prn) for 30 day(s) Not-Taking/PRN promethazine hydrochloride 25 mg oral tablet (1 source) Phenothiazine take 1 tablet by mouth every twelve hours Promethazine HCl 25 MG 1 tablet as needed Orally every 12 hrs for 10 days Not-Taking/PRN Problems Active Problems Problem Classification Problem Date Documented Date Episodic/Chronic Abdominal pain (1 source) Unspecified abdominal pain; Translations: [Unspecified abdominal pain] Onset: 02-27-2023 Episodic Calculus of urinary tract (1 source) Personal history of urinary calculi; Translations: [PERSONAL HISTORY OF URINARY CALCULI] Onset: 03-18-2022 Episodic Genitourinary symptoms and ill-defined conditions (1 source) Personal history of urinary (tract) infections; Translations: [PERS HX URINARY TRACT INFECTIONS] Onset: 03-18-2022 Episodic Other ear and sense organ disorders (1 source) Unspecified otitis externa, bilateral; Translations: [UNS OTITIS EXTERNA BILATERAL] Onset: 03-25-2021 Chronic Other hereditary and degenerative nervous system conditions (1 source) Restless legs; Translations: [Restless legs syndrome] Chronic Other upper respiratory infections (4 sources) Acute pharyngitis, unspecified; Translations: [Streptococcal pharyngitis] Onset: 03-03-2022 Episodic Residual codes; unclassified (3 sources) Transient alteration of awareness; Translations: [TRANSIENT ALTERATION OF AWARENESS] Onset: 03-14-2022 Episodic Substance-related disorders (10 sources) Polysubstance abuse ; Translations: [Other psychoactive substance abuse, uncomplicated] Onset: 05-24-2021 10-08-2021 Chronic Unclassified (1 source) POISN FENTANYL/FENT ANALOG ACC INIT; Translations: [POISN FENTANYL/FENT ANALOG ACC INIT] Onset: 03-18-2022 Unclassified (2 sources) CONTACT W/AND (SUSP) EXPOS COVID-19; Translations: [CONTACT W/AND (SUSP) EXPOS COVID-19] Onset: 08-27-2021 Urinary tract infections (2 sources) Urinary tract infectious disease; Translations: [Urinary tract infection, site not specified] 10-08-2021 Episodic Viral infection (1 source) COVID-19; Translations: [COVID-19] Onset: 08-27-2021 Past or Other Problems Problem Classification Problem Date Documented Da te Episodic/Chronic Other ear and sense organ disorders (3 sources) Otalgia, bilateral; Translations: [OTALGIA BILATERAL] Onset: 03-21-2021 Episodic Unclassified (1 source) CONTACT W/AND (SUSP) EXPOS COVID-19; Translations: [CONTACT W/AND (SUSP) EXPOS COVID-19] Onset: 08-25-2021 Results Test Name Value Interpretation Reference Range Facility HCG,Urineon 04-13-2023 Beta HCG ( test) Ql (U) Negative Normal [facility] Comment on above: Result Comment: PERF ORMED BY: [place] [address] PATHOLOGIST COMPUTER SUPPORT SPECIALIST INSTRUCTOR KMA BARGER M.D. Performed By: #### U HCG #### [place] [address] [facility] 04-13-2023 L Specimen: [id number] Received: 04/13/23 Status: KINJAL Flood Num: [id number] Spec Type: Surgical Subm Dr: Charli Irving MD Tissues: A Colon Biopsy (RANDOM COLON) Procedures: HE/2, Gross/Micro L4 Age/ Patient Sex Location Account Attending Physician Chiquis Barajas 32/F [id number] Charli Irving MD SPEC NUM: [id number] RECD: 04/13/23 STATUS: KINJAL FLOOD NUM: [id number] RAMON: 04/13/[address]: Charli Irving MD ENTERED: 04/13/23 [facility] DR: SPEC TYPE: Surgical DEPT: S ORDERED: HE/2, Gross/Micro L4 ORDERED: HE/2, Gross/Micro L4 Pathological Diagnosis Colon, random, biopsy: - No significant histopathologic alteration. Clinical Information Diarrhea, rule out microscopic colitis Gross Description Received in formalin labeled with the patient's name, date of and random colon biopsy is one arthur tissue fragment, 0.6 x 0.5 x 0.2 cm. Entirely submitted in one cassette labeled A1. CPT Codes 90088 Specimen: [id number] Received: 04/13/23 Status: KINJAL Flood Num: [id number] Spec Type: Surgical Subm Dr: Charli Irving MD Tissues: A Colon Biopsy (RANDOM COLON) Procedures: HE/2, Gross/Micro L4 Patient: Chiquis Barajas Armen [id number] (Continued) Signed (signatur e on file) Ole Gamez, DO 04/15/23 0820 Normal [facility] HCG ( test) IAharley mclaughlin Ql (U)Ordered By: Charli Irving on 02-27-2023 HCG ( test) Ql (U) Negative [facility] HCG,Urineon 02-27-2023 Beta HCG ( test) Ql (U) Negative Normal [facility] Comment on above: Result Comment: PERF ORMED BY: [facility] [address] [place] [id number] PATHOLOGIST COMPUTER SUPPORT SPECIALIST INSTRUCTOR KAM BARGER M.D. Performed By: #### U HCG #### [facility] [address] CBCon 06-09-2022 Erythrocyte distribution width (RBC) [Ratio] 14.4 % Normal 11.8-14.4 [facility] Comment on above: Performed By: #### C P, HCG, CBC #### [facility] [address] [place] [id number] Creel Selector: Bi Jackson MD #### HIVCMB, PHEP #### [address] [id number] Creel Selector: Vamshi Acosta MD Hematocrit (Bld) [Volume fraction] 36.7 % Normal 36.3-47.1 [facility] Comment on above: Performed By: #### C P, HCG, CBC #### [address] [place] [id number] Creel Selector: Bi Jackson MD #### HIVCMB, PHEP #### [place] [id number] Creel Selector: Vamshi Acosta MD Hemoglobin (Bld) [Mass/Vol] 11.6 g/dL Low 11.9-15.1 [facility] Comment on above: Performed By: #### C P, HCG, CBC #### [address] [place] [id number] Creel Selector: Bi Jackson MD #### HIVCMB, PHEP #### [place] [address] Creel Selector: Vamshi Acosta MD MCH (RBC) [Entitic mass] 27.0 pg Normal 25.2-33.5 [facility] Comment on above: Performed By: #### C P, HCG, CBC #### [address] [place] [id number] Creel Selector: Bi Jackson MD #### HIVCMB, PHEP #### [place] [id number] Creel Selector: Vamshi Acosta MD MCHC (RBC) [Mass/Vol] 31.6 g/dL Normal 28.4-34.8 [facility] Comment on above: Performed By: #### C P, HCG, CBC #### [address] [place] [address] Creel Selector: Bi Jackson MD #### HIVCMB, PHEP #### [place] [address] [place], [place] [id number] Creel Selector: Vamshi Acosta MD MCV (RBC) [Entitic vol] 85.3 fL Normal 82.6-102.9 [facility] Comment on above: Performed By: #### C P, HCG, CBC #### [address] [place] [address] Creel Selector: Bi Jackson MD #### HIVCMB, PHEP #### [place] [address] [place] [address] Creel Selector: Vamshi Acosta MD NRBC Automated 0.0 per 100 WBC Normal 0.0 [facility] Comment on above: Performed By: #### C P, HCG, CBC #### [address] [place] [phone] Creel Selector: Bi Jackson MD #### HIVCMB, PHEP #### [address] [phone] Creel Selector: Vamshi Acosta MD Platelet mean volume (Bld) [Entitic vol] 10.7 fL Normal 8.1-13.5 [facility] Comment on above: Performed By: #### C P, HCG, CBC #### [address] [place] [address] Creel Selector: Bi Jackson MD #### HIVCMB, PHEP #### [place] [address] [place] [address] Creel Selector: Vamshi Acosta MD Platelets (Bld) [#/Vol] 257 10*3/uL Normal 138-453 [facility] Comment on above: Performed By: #### C P, HCG, CBC #### [facility] [address] [place] [address] Creel Selector: Bi Jackson MD #### HIVCMB, PHEP #### [place] [id number] [place], [place] [id number] Creel Selector: Vamshi Acosta MD RBC (Bld) [#/Vol] 4.30 10*6/uL Normal 3.95-5.11 [facility] Comment on above: Performed By: #### C P, HCG, CBC #### [facility] [address] [place] [address] Creel Selector: Bi Jackson MD #### HIVCMB, PHEP #### [place] [address] [place], [place] [id number] Creel Selector: Vamshi Acosta MD WBC (Bld) [#/Vol] 4.2 10*3/uL Normal 3.5-11.3 [facility] Comment on above: Performed By: #### C P, HCG, CBC #### [address] [place] [address] Creel Selector: Bi Jackson MD #### HIVCMB, PHEP #### [place] [address] [place], [place] [id number] Creel Selector: Vamshi Acosta MD Hematocrit (Bld) [Volume fraction] 36.7 % 36.3 - 47.1 % [facility] Hemoglobin (Bld) [Mass/Vol] 11.6 g/dL Low 11.9 - 15.1 g/dL [facility] Interpretation and review of laboratory results Abnormal [facility] MCH (RBC) [Entitic mass] 27.0 pg 25.2 - 33.5 pg [facility] MCHC (RBC) [Mass/Vol] 31.6 g/dL 28.4 - 34.8 g/dL [facility] MCV (RBC) [Entitic vol] 85.3 fL 82.6 - 102.9 fL [facility] NRBC Automated 0.0 0.0 per 100 WBC [facility] Platelet distribution width (Bld) [Ratio] 14.4 % 11.8 - 14.4 % [facility] Platelet mean volume (Bld) [Entitic vol] 10.7 fL 8.1 - 13.5 fL [facility] Platelets (Bld) [#/Vol] 257 10*3/uL [facility] RBC (Bld) [#/Vol] 4.30 10*6/uL 3.95 - 5.1 1 m/uL [facility] WBC (Bld) [#/Vol] 4.2 10*3/uL [facility] Comp Metabolic Profon 2022 Bilirubin [Mass/Vol] mg/dL Low 0.3-1.2 [facility] Comment on above: Performed By: #### C P, HCG, CBC #### [address] [place] [address] Creel Selector: Bi Jackson MD #### HIVCMB, PHEP #### [facility] [address] [place] [address] Creel Selector: Vamshi Acosta MD Albumin [Mass/Vol] 4.0 g/dL Normal 3.5-5.2 [facility] Comment on above: Performed By: #### C P, HCG, CBC #### [address] [place] [address] Creel Selector: Bi Jackson MD #### HIVCMB, PHEP #### [facility] [address] [place] [address] Creel Selector: Vamshi Acosta MD Albumin/Glob Ratio 1.4 Normal 1.0-2.5 [facility] Comment on above: Performed By: #### C P, HCG, CBC #### [address] [place] [address] Creel Selector: Bi Jackson MD #### HIVCMB, PHEP #### [place] [phone] [place], [place] [phone] Creel Selector: Vamshi Acosta MD Alkaline Phos 66 U/L Normal 35-104 [facility] Comment on above: Performed By: #### C P, HCG, CBC #### [facility] [address] [place], [place] [phone] Creel Selector: Bi Jackson MD #### HIVCMB, PHEP #### [address] [phone] Creel Selector: Vamshi Acosta MD ALT [Catalytic activity/Vol] 11 U/L Normal 5-33 [facility] Comment on above: Performed By: #### C P, HCG, CBC #### [address] [place] [phone] Creel Selector: Bi Jackson MD #### HIVCMB, PHEP #### [address] [phone] Creel Selector: Vamshi Acosta MD Anion gap [Moles/Vol] 7 mmol/L Low 9-17 [facility] Comment on above: Performed By: #### C P, HCG, CBC #### [facility] [address] [place] [address] [place], [place] [phone] Creel Selector: Bi Jackson MD #### HIVCMB, PHEP #### [address] [id number] Creel Selector: Vamshi Acosta MD AST [Catalytic activity/Vol] 16 U/L Normal <32 [facility] Comment on above: Performed By: #### C P, HCG, CBC #### [facility] [address] [place], [place] [phone] Creel Selector: Bi Jackson MD #### HIVCMB, PHEP #### [place] [address] [place] [address] Creel Selector: Vamshi Acosta MD BUN/CRE Ratio 25 High 9-20 [facility] Comment on above: Performed By: #### C P, HCG, CBC #### [facility] [address] [place], [place] 6793683 Creel Selector: Bi Jackson MD #### HIVCMB, PHEP #### [address] [address] Creel Selector: Vamshi Acosta MD Calcium [Mass/Vol] 9.0 mg/dL Normal 8.6-10.4 [facility] Comment on above: Performed By: #### C P, HCG, CBC #### [facility] [address] [place], [place] [phone] Creel Selector: Bi Jackson MD #### HIVCMB, PHEP #### [address] [address] Creel Selector: Vamshi Acosta MD Chloride [Moles/Vol] 103 mmol/L Normal 98-107 [facility] Comment on above: Performed By: #### C P, HCG, CBC #### [facility] [address] [place], [place] [phone] Creel Selector: Bi Jackson MD #### HIVCMB, PHEP #### [address] [address] Creel Selector: Vamshi Acosta MD CO2 [Moles/Vol] 29 mmol/L Normal 20-31 [facility] Comment on above: Performed By: #### C P, HCG, CBC #### [facility] [address] [place], [place] 8074983 Creel Selector: Bi Jackson MD #### HIVCMB, PHEP #### [address], [place] [address] Creel Selector: Vamshi Acosta MD Creatinine [Mass/Vol] 0.56 mg/dL Normal 0.50-0.90 [facility] Comment on above: Performed By: #### C P, HCG, CBC #### [facility] [address] [place] [address] [place]. [place], [place] [phone] Creel Selector: Bi Jackson MD #### HIVCMB, PHEP #### [address] [phone] Creel Selector: Vamshi Acosta MD GFR/1.73 sq M.predicted among non-blacks MDRD (S/P/Bld) [Vol rate/Area] mL/min/{1.73_m2} Normal >60 [facility] Comment on above: Result Comment: These results are not intended for use in patients <18 years of age. eGFR results are calculated without a race factor using the 2020 CKD-EPI equation. Careful clinical correlation is recommended, particularly when comparing to results calculated using previous equations. The CKD-EPI equation is less accurate in patients with extremes of muscle mass, extra-renal metabolism of creatine, excessive creatine ingestion, or following therapy that affects renal tubular secretion. Performed By: #### C P, HCG, CBC #### [address] [place], [place] [phone] Creel Selector: Bi Jackson MD #### SHEILA, PHEP #### [address] [address] Creel Selector: Vamshi Acosta MD Glucose [Mass/Vol] 105 mg/dL High 70-99 [facility] Comment on above: Performed By: #### C P, HCG, CBC #### [address] [place], [place] 7417183 Creel Selector: Bi Jackson MD #### HIVCMB, PHEP #### [address] [address] Creel Selector: Vamshi Acosta MD Potassium [Moles/Vol] 3.9 mmol/L Normal 3.7-5.3 [facility] Comment on above: Performed By: #### C P, HCG, CBC #### [address] [place], [place] [address] Creel Selector: Bi Jackson MD #### HIVCMB, PHEP #### [address] [id number] Creel Selector: Vamshi Acosta MD Protein [Mass/Vol] 6.8 g/dL Normal 6.4-8.3 [facility] Comment on above: Performed By: #### C P, HCG, CBC #### [address] [place] [phone] Creel Selector: Bi Jackson MD #### HIVCMB, PHEP #### [address] [address] Creel Selector: Vamshi Acosta MD Sodium [Moles/Vol] 139 mmol/L Normal 135-144 [facility] Comment on above: Performed By: #### C P, HCG, CBC #### [address] [place], [place] 5082383 Creel Selector: Bi Jackson MD #### HIVCMB, PHEP #### [address] [address] Creel Selector: Vamshi Acosta MD Urea nitrogen [Mass/Vol] 14 mg/dL Normal 6-20 [facility] Comment on above: Performed By: #### C P, HCG, CBC #### [address] [place], [place] 0327483 Creel Selector: Bi Jackson MD #### HIVCMB, PHEP #### [address] [address] Creel Selector: Vamshi Acosta MD [facility] Metabolic [facility] 06-09-2022 Albumin [Mass/Vol] 4 g/dL 3.5 - 5.2 g/dL [facility] Albumin/Globulin [Mass ratio] 1.4 {ratio} 1.0 - 2.5 [facility] ALP [Catalytic activity/Vol] 66 U/L 35 - 104 U/L [facility] ALT [Catalytic activity/Vol] 11 U/L 5 - 33 U/L [facility] Anion gap [Moles/Vol] 7 mmol/L Low 9 - 17 mmol/L [facility] AST [Catalytic activity/Vol] 16 U/L NINF - 32 U/L [facility] Bilirubin [Mass/Vol] mg/dL Low 0.3 - 1 .2 mg/dL [facility] Calcium [Mass/Vol] 9.0 mg/dL 8.6 - 10. 4 mg/dL [facility] Chloride [Moles/Vol] 103 mmol/L 98 - 10 7 mmol/L [facility] CO2 [Moles/Vol] 29 mmol/L 20 - 31 mmol/L [facility] Creatinine [Mass/Vol] 0.56 mg/dL 0.50 - 0.90 mg/dL [facility] GFR/1.73 sq M.predicted MDRD (S/P/Bld) [Vol rate/Area] - PINF [facility] Comment on above: These results are not intended for use in patients <18 years of age. eGFR results are calculated without a race factor using the 2020 CKD-EPI equation. Careful clinical correlation is recommended, particularly when comparing to results calculated using previous equations. The CKD-EPI equation is less accurate in patients with extremes of muscle mass, extra-renal metabolism of creatine, excessive creatine ingestion, or following therapy that affects renal tubular secretion. Glucose [Mass/Vol] 105 mg/dL High 70 - 99 mg/dL [facility] Interpretation and review of laboratory results Abnormal [facility] Potassium [Moles/Vol] 3.9 mmol/L 3.7 - 5.3 mmol/L [facility] Protein [Mass/Vol] 6.8 g/dL 6.4 - 8.3 g/dL [facility] Sodium [Moles/Vol] 139 mmol/L 135 - 144 mmol/L [facility] Urea nitrogen [Mass/Vol] 14 mg/dL 6 - 20 mg/dL [facility] Urea nitrogen/Creatinine (Bld) [Mass ratio] 25 High 9 - 20 [facility] HCG Qualitative, Serumon hCG Qual Negative NEGATIVE [facility] Comment on above: Specimens with hCG l evels near the threshold of the test (25 mIU/mL) may give a negative or indeterminate result. In such cases, another test should be performed with a new specimen in 48-72 hours. If early is suspected clinically in this setting, correlation with quantitative serum b-hCG level is suggested. [facility] has confirmed the use of plasma for this test. This has not been cleared or approved by the U.S. Food and Drug Administration. The FDA has determined that such clearance is not necessary. [facility] HCG Screen, Bloodon 06-10-19 23 HCG Screen, Blood Negative Normal NEG [facility] Comment on above: Result Comment: Spec imens with hCG levels near the threshold of the test (25 mIU/mL) may give a negative or indeterminate result. In such cases, another test should be performed with a new specimen in 48-72 hours. If early is suspected clinically in this setting, correlation with quantitative serum b-hCG level is suggested. [facility] has confirmed the use of plasma for this test. This has not been cleared or approved by the U.S. Food and Drug Administration. The FDA has determined that such clearance is not necessary. Performed By: #### C P, HCG, CBC #### [facility] [address] [place] [address] Creel Selector: Bi Jackson MD #### HIVCMB, PHEP #### [id number] [place] [address] Creel Selector: Vamshi Acosta MD HIV Ag/Abon 06-09-2022 HIV Ag/Ab Non-Reactive Normal NR [facility] Comment on above: Result Comment: No l aboratory evidence of HIV infection. If acute HIV infection is suspected, consider testing for HIV-1 RNA. Performed By: #### C P, HCG, CBC #### [address] [place] [address] Creel Selector: Bi Jackson MD #### HIVCMB, PHEP #### [address] [id number] Creel Selector: Vamshi Acosta MD HIV Screenon 06-09-2022 HIV 1+2 Ab+HIV1 p24 Ag IA Ql Non-Reactive NONREACTIVE [facility] Comment on above: No laboratory eviden ce of HIV infection. If acute HIV infection is suspected, consider testing for HIV-1 RNA. [facility] Hepatitis Acute [facility] 06-09 Hep A Ab,IgM Non-Reactive Normal NR [facility] Comment on above: Performed By: #### C P, HCG, CBC #### [address] [place] [address] Creel Selector: Bi Jackson MD #### HIVCMB, PHEP #### [address] [id number] Creel Selector: Vamshi Acosta MD Hep B Core Ab,IgM Non-Reactive Normal NR [facility] Comment on above: Performed By: #### C P, HCG, CBC #### [address] [place] [address] Creel Selector: Bi Jackson MD #### HIVCMB, PHEP #### [address] [id number] Creel Selector: Vamshi Acosta MD Hep B Surf Ag Non-Reactive Normal [facility] Comment on above: Performed By: #### C P, HCG, CBC #### [address] [place] [address] Creel Selector: Bi Jackson MD #### HIVCMB, PHEP #### [facility] [employer] [address] [place], [place] [id number] Creel Selector: Vamshi Acosta MD Hep C Ab Non-Reactive Normal NR [facility] Comment on above: Result Comment: The hepatitis C procedure used in our laboratory is a Chemiluminescent test specific for three recombinant HCV antigens. A negative anti-HCV result indicates that the antibodies to hepatitis C virus are not present at this time. Individuals with reactive anti-HCV should be considered infected and infectious until proven otherwise. Confirmation of all equivocal or reactive results is recommended by ordering HCV RNA by PCR. Performed By: #### C P, HCG, CBC #### [facility] [address] [place] [address] [place] [address] Creel Selector: Bi Jackson MD #### HIVCMB, PHEP #### [id number] [place], [place] [id number] Creel Selector: Vamshi Acosta MD Hepatitis Panel, Acuteon HAV IgM Ql (S) Non-Reactive NONREACTIVE [facility] HBV core IgM Ql (S) Non-Reactive NONREACTIVE [facility] HBV surface Ag Ql (S) Non-Reactive NONREACTIVE [facility] HCV Ab Ql (S) Non-Reactive NONREACTIVE [facility] Comment on above: The hepatitis C procedure used in our laboratory is a Chemiluminescent test specific for three recombinant HCV antigens. A negative anti-HCV result indicates that the antibodies to hepatitis C virus are not present at this time. Individuals with reactive anti-HCV should be considered infected and infectious until proven otherwise. Confirmation of all equivocal or reactive results is recommended by ordering HCV RNA by PCR. [facility] Comp Metabolic Profon 2022 Albumin [Mass/Vol] 4.3 g/dL Normal 3.5-5.2 [facility] Comment on above: Performed By: #### C P #### [facility] [address] [place] [address] Creel Selector: Bi Jackson MD Albumin/Glob Ratio 1.2 Normal 1.0-2.5 [facility] Comment on above: Performed By: #### C P #### [facility] [address] [place], [place] [id number] Creel Selector: Bi Jackson MD Alkaline Phos 89 U/L Normal 35-104 [facility] Comment on above: Performed By: #### C P #### [facility] [address] [place], [place] [id number] Creel Selector: Bi Jackson MD ALT [Catalytic activity/Vol] 11 U/L Normal 5-33 [facility] Comment on above: Performed By: #### C P #### [facility] [address] [place], [place] [id number] Creel Selector: Bi Jackson MD Anion gap [Moles/Vol] 12 mmol/L Normal 9-17 [facility] Comment on above: Performed By: #### C P #### [facility] [address] [place], [place] [id number] Creel Selector: Bi Jackson MD AST [Catalytic activity/Vol] 17 U/L Normal <32 [facility] Comment on above: Performed By: #### C P #### [facility] [address] [place], [place] [id number] Creel Selector: Bi Jackson MD Bilirubin [Mass/Vol] 0.2 mg/dL Low 0.3-1.2 [facility] Comment on above: Performed By: #### C P #### [facility] [address] [place], [place] [id number] Creel Selector: Bi Jackson MD BUN/CRE Ratio 24 High 9-20 [facility] Comment on above: Performed By: #### C P #### [facility] [address] [place], [place] [id number] Creel Selector: Bi Jackson MD Calcium [Mass/Vol] 9.5 mg/dL Normal 8.6-10.4 [facility] Comment on above: Performed By: #### C P #### [facility] [address] [place] [address] Creel Selector: Bi Jackson MD Chloride [Moles/Vol] 102 mmol/L Normal 98-107 [facility] Comment on above: Performed By: #### C P #### [facility] [address] [place] [address] Creel Selector: Bi Jackson MD CO2 [Moles/Vol] 23 mmol/L Normal 20-31 [facility] Comment on above: Performed By: #### C P #### [facility] [address] [place] [address] Creel Selector: Bi Jackson MD Creatinine [Mass/Vol] 0.46 mg/dL Low 0.50-0.90 [facility] Comment on above: Performed By: #### C P #### [facility] [address] [place] [address] Creel Selector: Bi Jackson MD GFR/1.73 sq M.predicted among non-blacks MDRD (S/P/Bld) [Vol rate/Area] mL/min/{1.73_m2} Normal >60 [facility] Comment on above: Result Comment: Effective Dec 16, 2021 These results are not intended for use in patients <18 years of age. eGFR results are calculated without a race factor using the 2020 CKD-EPI equation. Careful clinical correlation is recommended, particularly when comparing to results calculated using previous equations. The CKD-EPI equation is less accurate in patients with extremes of muscle mass, extra-renal metabolism of creatine, excessive creatine ingestion, or following therapy that affects renal tubular secretion. Performed By: #### C P #### [facility] [address] [place] [address] Creel Selector: Bi Jackson MD Glucose [Mass/Vol] 99 mg/dL Normal 70-99 [facility] Comment on above: Performed By: #### C P #### [facility] [address] [place] [address] Creel Selector: Bi Jackson MD Potassium [Moles/Vol] 4.4 mmol/L Normal 3.7-5.3 [facility] Comment on above: Performed By: #### C P #### [facility] [address] [place], [place] [id number] Creel Selector: Bi Jackson MD Protein [Mass/Vol] 8.0 g/dL Normal 6.4-8.3 [facility] Comment on above: Performed By: #### C P #### [facility] [address] [place], [place] [id number] Creel Selector: Bi Jackson MD Sodium [Moles/Vol] 137 mmol/L Normal 135-144 [facility] Comment on above: Performed By: #### C P #### [facility] [address] [place], [place] [id number] Creel Selector: Bi Jackson MD Urea nitrogen [Mass/Vol] 11 mg/dL Normal 6-20 [facility] Comment on above: Performed By: #### C P #### [facility] [address] [place], [place] [phone] Creel Selector: Bi Jackson MD Comprehensive Metabolic Pane [facility] 04-09-2022 Albumin [Mass/Vol] 4.3 g/dL 3.5 - 5.2 g/dL [facility] Albumin/Globulin [Mass ratio] 1.2 {ratio} 1.0 - 2.5 [facility] ALP (Bld) [Catalytic activity/Vol] 89 U/L 35 - 104 U/L [facility] ALT [Catalytic activity/Vol] 11 U/L 5 - 33 U/L [facility] Anion gap [Moles/Vol] 12 mmol/L 9 - 17 mmol/L [facility] AST [Catalytic activity/Vol] 17 U/L NINF - 32 U/L [facility] Bilirubin [Mass/Vol] 0.2 mg/dL Low 0.3 - 1 .2 mg/dL [facility] Calcium [Mass/Vol] 9.5 mg/dL 8.6 - 10. 4 mg/dL [facility] Chloride [Moles/Vol] 102 mmol/L 98 - 10 7 mmol/L [facility] CO2 [Moles/Vol] 23 mmol/L 20 - 31 mmol/L [facility] Creatinine [Mass/Vol] 0.46 mg/dL Low 0.50 - 0.90 mg/dL [facility] GFR/1.73 sq M.predicted MDRD (S/P/Bld) [Vol rate/Area] - PINF [facility] Comment on above: Effective Dec 16, 2021 These results are not intended for use in patients <18 years of age. eGFR results are calculated without a race factor using the 2020 CKD-EPI equation. Careful clinical correlation is recommended, particularly when comparing to results calculated using previous equations. The CKD-EPI equation is less accurate in patients with extremes of muscle mass, extra-renal metabolism of creatine, excessive creatine ingestion, or following therapy that affects renal tubular secretion. Glucose [Mass/Vol] 99 mg/dL 70 - 99 mg/dL [facility] Interpretation and review of laboratory results Abnormal [facility] Potassium [Moles/Vol] 4.4 mmol/L 3.7 - 5.3 mmol/L [facility] Protein [Mass/Vol] 8.0 g/dL 6.4 - 8.3 g/dL [facility] Sodium [Moles/Vol] 137 mmol/L 135 - 144 mmol/L [facility] Urea nitrogen (BldV) [Mass/Vol] 11 mg/dL 6 - 20 mg/dL [facility] Urea nitrogen/Creatinine (Bld) [Mass ratio] 24 High 9 - 20 [facility] CBC AUTO DIFFon 03-03-2022 BASO # 0.0 103/ul Normal 0.0-0.1 [facility] Comment on above: Performed By: #### C BC #### [facility] [address] [address] [address] Aakash Covington Basophils/100 WBC (Bld) 0.4 % Normal 0.2-2.0 [facility] Comment on above: Performed By: #### C BC #### [facility] [address] [address] [address] Aakash Covington EO # 0.1 103/ul Normal 0.0-0.7 [facility] Comment on above: Performed By: #### C BC #### [facility] [address] [address] [address] Aakash Covington Eosinophils/100 WBC (Bld) 1.3 % Normal 0.9-7.0 [facility] Comment on above: Performed By: #### C BC #### [facility] [address] [place] [address] Dr. Aakash Covington Erythrocyte distribution width (RBC) [Ratio] 14.1 % Normal 11.0-15.0 [facility] Comment on above: Performed By: #### C BC #### [facility] [address] [place] [address] Dr. Aakash Covington Hematocrit (Bld) [Volume fraction] 35.5 % Critically low 36.0-48.0 [facility] Comment on above: Performed By: #### C BC #### [facility] [address] [place] [address] Dr. Aakash Covington Hemoglobin (Bld) [Mass/Vol] 11.5 g/dL Critically low 12.0-16.0 [facility] Comment on above: Performed By: #### C BC #### [facility] [address] [place] [address] Dr. Aakash Covington IG # 0.03 10e3/ul Normal 0.00-0.03 [facility] Comment on above: Performed By: #### C BC #### [facility] [address] [place] [address] Dr. Aakash Covington IG % 0.3 % Normal 0.0-0.5 [facility] Comment on above: Performed By: #### C BC #### [facility] [address] [address] [address] Aakash Covington LYMPH # 2.0 103/ul Normal 1.2-3.8 [facility] Comment on above: Performed By: #### C BC #### [facility] [address] [place] [address] Dr. Aakash Covington Lymphocytes/100 WBC (Bld) 19.2 % Critically low 20.5-60.0 [facility] Comment on above: Performed By: #### C BC #### [facility] [address] [place] [address] Dr. Aakash Covington MANUAL DIFF REQ NO Normal [facility] Comment on above: Performed By: #### C BC #### [facility] [address] [place] [address] Dr. Aakash Covington MCH (RBC) [Entitic mass] 27.1 pg Normal 26.7-34.0 [facility] Comment on above: Performed By: #### C BC #### [facility] [address] [place] [address] Dr. Aakash Covington MCHC (RBC) [Mass/Vol] 32.4 g/dL Normal 29.9-35.2 [facility] Comment on above: Performed By: #### C BC #### [facility] [address] [place] [address] Dr. Aakash Covington MCV (RBC) [Entitic vol] 83.7 fL Normal 81.0-99.0 [facility] Comment on above: Performed By: #### C BC #### [facility] [address] [place] [address] Dr. Aakash Covington MONO # 0.8 103/ul Normal 0.3-0.8 [facility] Comment on above: Performed By: #### C BC #### [facility] [address] [place] [address] Dr. Aakash Covington Monocytes/100 WBC (Bld) 7.5 % Normal 1.7-12.0 [facility] Comment on above: Performed By: #### C BC #### [facility] [address] [place] [address] Dr. Aakash Covington NEUT # 7.4 103/ul Critically high 1.4-6.5 [facility] Comment on above: Performed By: #### C BC #### [facility] [address] [address] [address] Aakash Covington Neutrophils/100 WBC (Bld) 71.3 % Normal 43.0-75.0 [facility] Comment on above: Performed By: #### C BC #### [facility] [address] [address] [address] Aakash Covington Platelet mean volume (Bld) [Entitic vol] 10.3 fL Normal 9.5-13.5 [facility] Comment on above: Performed By: #### C BC #### [facility] [address] [address] [address] Aakash Covington PLT 298 103/ul Normal 150-450 [facility] Comment on above: Performed By: #### C BC #### [facility] [address] [address] [address] Aakash Covington RBC 4.24 106/ul Normal 4.20-5.40 [facility] Comment on above: Performed By: #### C BC #### [facility] [address] [address] [address] Aakash Covington WBC 10.3 103/ul Normal 4.0-11.0 [facility] Comment on above: Performed By: #### C BC #### [facility] [address] [address] [address] Aakash Covington MONOon 03-03-2022 Monocytes (Bld) [#/Vol] Negative Normal NEGATIVE [facility] Comment on above: Performed By: #### M MARU #### [facility] [address] [address] [address] Aakash Covington PROF 14(COMP METB)on 022 Albumin [Mass/Vol] 3.5 g/dL Normal 3.4-5.0 [facility] Comment on above: Performed By: #### C MP ####[facility] [address] [place], [place] [address]Dr. Aakash Adria Albumin/Globulin [Mass ratio] 0.9 {ratio} Normal [facility] Comment on above: Performed By: #### C MP ####[facility] [address] [place], [place] [address]Dr. Aakash Adria ALP [Catalytic activity/Vol] 77 U/L Normal 46-116 [facility] Comment on above: Performed By: #### C MP ####[facility] [address] [place], [place] [address]Dr. Aakash Adria ALT [Catalytic activity/Vol] 15 U/L Normal 14-59 [facility] Comment on above: Performed By: #### C MP ####[facility] [address] [place], [place] [address]Dr. Lindysilvia Adria Anion gap [Moles/Vol] 4.9 mmol/L Normal [facility] Comment on above: Performed By: #### C MP ####[facility] [address] [place], [place] [address]Dr. Aakash Adria AST [Catalytic activity/Vol] 20 U/L Normal 15-37 [facility] Comment on above: Performed By: #### C MP ####[facility] [address] [place], [place] [address]Dr. Aakash Adria Bilirubin [Mass/Vol] 0.2 mg/dL Normal 0.2-1.0 [facility] Comment on above: Performed By: #### C MP ####[facility] [address] [place], [place] [address]Dr. Aakash Adria Calcium [Mass/Vol] 8.8 mg/dL Normal 8.5-10.1 [facility] Comment on above: Performed By: #### C MP ####[facility] [address] [place], [place] [address]Dr. Aakash Covington Chloride [Moles/Vol] 100 mmol/L Normal 98-107 [facility] Comment on above: Performed By: #### C MP ####[facility] [address] [place], [place] [address]Dr. Aakash Covington CO2 [Moles/Vol] 32.9 mmol/L Critically high 21.0-32.0 [facility] Comment on above: Performed By: #### C MP ####[facility] [address] [address] Lindysilvia Covington Creatinine [Mass/Vol] 0.54 mg/dL Critically low 0.55-1.02 [facility] Comment on above: Performed By: #### C MP ####[facility] [address] [address]Dr[address] Aakash Adria EGFR-AF MONGOLIAN >60 Normal >=60 [facility] Comment on above: Performed By: #### C MP ####[facility] [address] [address]Dr. Aakash Covington EGFR-NON AF MONGOLIAN >60 Normal >=60 [facility] Comment on above: Performed By: #### C MP ####[facility] [address] [place], [place] [address]Dr. Aakash Covington Globulin (S) [Mass/Vol] 3.8 g/dL Normal [facility] Comment on above: Performed By: #### C MP ####[facility] [address] [place], [place] [address]Dr. Aakash Covington Glucose [Mass/Vol] 101 mg/dL Normal 74-106 [facility] Comment on above: Performed By: #### C MP ####[facility] [address] [place], [place] [address]Dr. Aakash Covington Potassium [Moles/Vol] 3.8 mmol/L Normal 3.5-5.1 [facility] Comment on above: Performed By: #### C MP ####[facility] [address] [place], [place] [address]Dr. Aakash Covington Protein [Mass/Vol] 7.3 g/dL Normal 6.4-8.2 [facility] Comment on above: Performed By: #### C MP ####[facility] [address] [place], [place] [address]Dr. Aakash Covington Sodium [Moles/Vol] 134 mmol/L Critically low 136-145 [facility] Comment on above: Performed By: #### C MP ####[facility] [address] [place], [place] [address]IqManish Covington Urea nitrogen [Mass/Vol] 15.0 mg/dL Normal 7.0-18.0 [facility] Comment on above: Performed By: #### C MP ####[facility] [address] [place], [place] [address]QaManish Covington Urea nitrogen/Creatinine [Mass ratio] 27.8 mg/mg Normal [facility] Comment on above: Performed By: #### C MP ####[facility] [address] [place], [place] [address]RlManish Covington STREPT SCREENon 03-03-2022 STREP SCREEN A Positive Abnormal NEGATIVE [facility] Comment on above: Performed By: #### S SCRN #### [facility] [address] [place], [place] [address] Dr. Aakash Covington XR NECK SOFT TISSUEon 2021 XR NECK SOFT TISSUE EXAM: XR NECK SOFT TISSUE HISTORY: Pain COMPARISON: None. FINDINGS: 2 views of the neck were obtained using soft tissue technique. The airway appears patent and nondistended. Epiglottis and aryepiglottic folds appear well-defined. No pathologic prevertebral soft tissue thickening is seen. No unexpected radiopaque foreign body is seen. IMPRESSION: No acute radiographic abnormality of the neck. Electronically authenticated by: MANISH LEUNG Date: 2022-03-03 04:15 Normal [facility] HIV Ag/Abon 03-02-2022 HIV Ag/Ab Non-Reactive Normal NR [facility] Comment on above: Result Comment: No l aboratory evidence of HIV infection. If acute HIV infection is suspected, consider testing for HIV-1 RNA. Performed By: #### C BC, BMP #### [facility] [address] [place] [address] Creel Selector: Bi Jackson MD #### HIVCMB, PHEP #### [facility] [address] [place] [address] Creel Selector: Vamshi Acosta MD Basic Metabolic Panelon 02-13 Anion gap [Moles/Vol] 7 mmol/L Low 9 - 17 mmol/L [facility] Calcium [Mass/Vol] 9.1 mg/dL 8.6 - 10. 4 mg/dL [facility] Chloride [Moles/Vol] 100 mmol/L 98 - 10 7 mmol/L [facility] CO2 [Moles/Vol] 29 mmol/L 20 - 31 mmol/L [facility] Creatinine [Mass/Vol] 0.59 mg/dL 0.50 - 0.90 mg/dL [facility] GFR/1.73 sq M.predicted MDRD (S/P/Bld) [Vol rate/Area] - PINF [facility] Comment on above: Effective Dec 16, 2021 These results are not intended for use in patients <18 years of age. eGFR results are calculated without a race factor using the 2020 CKD-EPI equation. Careful clinical correlation is recommended, particularly when comparing to results calculated using previous equations. The CKD-EPI equation is less accurate in patients with extremes of muscle mass, extra-renal metabolism of creatine, excessive creatine ingestion, or following therapy that affects renal tubular secretion. Glucose [Mass/Vol] 104 mg/dL High 70 - 99 mg/dL [facility] Interpretation and review of laboratory results Abnormal [facility] Potassium [Moles/Vol] 4.1 mmol/L 3.7 - 5.3 mmol/L [facility] Sodium [Moles/Vol] 136 mmol/L 135 - 144 mmol/L [facility] Urea nitrogen (BldV) [Mass/Vol] 16 mg/dL 6 - 20 mg/dL [facility] Urea nitrogen/Creatinine (Bld) [Mass ratio] 27 High 9 - 20 [facility] Basic Metabolic Profon 02-26 Anion gap [Moles/Vol] 7 mmol/L Low 9-17 [facility] Comment on above: Performed By: #### C , [facility] #### [facility] [address] [place] [address] [employer]el Selector: Bi Jackson MD #### HIVCMB, PHEP #### [address] [address] Creel Selector: Vamshi Acosta MD BUN/CRE Ratio 27 High 9-20 [facility] Comment on above: Performed By: #### C BC, BMP #### [facility] [address] [place], [place] [id number] [employer]el Selector: iB Jackson MD #### HIVCMB, PHEP #### [address] [address] Creel Selector: Vamshi Acosta MD Calcium [Mass/Vol] 9.1 mg/dL Normal 8.6-10.4 [facility] Comment on above: Performed By: #### C BC, BMP #### [facility] [address] [place], [place] [id number] [employer]el Selector: Bi Jackson MD #### HIVCMB, PHEP #### [address] [address] Creel Selector: Vamshi Acosta MD Chloride [Moles/Vol] 100 mmol/L Normal 98-107 [facility] Comment on above: Performed By: #### C BC, BMP #### [facility] [facility] [address] [place], [place] [id number] Creel Selector: Bi Jackson MD #### HIVCMB, PHEP #### [address] [address] Creel Selector: Vamshi Acosta MD CO2 [Moles/Vol] 29 mmol/L Normal 20-31 [facility] Comment on above: Performed By: #### C BC, BMP #### [facility] [address] [place] [address] Creel Selector: Bi Jackson MD #### HIVCMB, PHEP #### [address] [place] [address] Creel Selector: Vamshi Acosta MD Creatinine [Mass/Vol] 0.59 mg/dL Normal 0.50-0.90 [facility] Comment on above: Performed By: #### C BC, BMP #### [facility] [address] [place] [address] [place] [place], [place] [phone] Creel Selector: Bi Jackson MD #### HIVCMB, PHEP #### [id number] [place], [place] [phone] Creel Selector: Vamshi Acosta MD GFR/1.73 sq M.predicted among non-blacks MDRD (S/P/Bld) [Vol rate/Area] mL/min/{1.73_m2} Normal >60 [facility] Comment on above: Result Comment: Effective Dec 16, 2021 These results are not intended for use in patients <18 years of age. eGFR results are calculated without a race factor using the 2020 CKD-EPI equation. Careful clinical correlation is recommended, particularly when comparing to results calculated using previous equations. The CKD-EPI equation is less accurate in patients with extremes of muscle mass, extra-renal metabolism of creatine, excessive creatine ingestion, or following therapy that affects renal tubular secretion. Performed By: #### C BC, BMP #### [facility] [address] [place] [address] Dr. [place], [place] [phone] Creel Selector: Bi Jackson MD #### HIVCMB, PHEP #### [id number] [place] [address] Creel Selector: Vamshi Acosta MD Glucose [Mass/Vol] 104 mg/dL High 70-99 [facility] Comment on above: Performed By: #### C BC, BMP #### [address] [place], [place] [phone] Creel Selector: Bi Jackson MD #### HIVCMB, PHEP #### [id number] [place], [place] [phone] Creel Selector: Vamshi Acosta MD Potassium [Moles/Vol] 4.1 mmol/L Normal 3.7-5.3 [facility] Comment on above: Performed By: #### C BC, BMP #### [facility] [address] [place] [address] Dr. [place], [place] [phone] Creel Selector: Bi Jackson MD #### HIVCMB, PHEP #### [address] [id number] Creel Selector: Vamshi Acosta MD Sodium [Moles/Vol] 136 mmol/L Normal 135-144 [facility] Comment on above: Performed By: #### C BC, BMP #### [facility] [address] [place] [address] Dr. [place], [place] [phone] Creel Selector: Bi Jackson MD #### SHEILA, PHEP #### [address] [phone] Creel Selector: Vamshi Acosta MD Urea nitrogen [Mass/Vol] 16 mg/dL Normal 6-20 [facility] Comment on above: Performed By: #### Diogo GUPTA, BMP #### [address] [place], [place] [phone] Creel Selector: Bi Jackson MD #### SHEILA, PHEP #### [address] [id number] Creel Selector: Vamshi Acosta MD CBCon 02-26-2022 Erythrocyte distribution width (RBC) [Ratio] 14.6 % High 11.8-14.4 [facility] Comment on above: Performed By: #### C BC, BMP #### [facility] [address] [place] [address] [place] [address] Creel Selector: Bi Jackson MD #### HIVCMLucretia, PHEP #### [address] [address] Creel Selector: Vamshi Acosta MD Hematocrit (Bld) [Volume fraction] 38.4 % Normal 36.3-47.1 [facility] Comment on above: Performed By: #### C BC, BMP #### [facility] [address] [place] [address] Dr. [place], [place] [phone] Creel Selector: Bi Jackson MD #### HIVCMB, PHEP #### [address] [phone] Creel Selector: Vamshi Acosta MD Hemoglobin (Bld) [Mass/Vol] 11.8 g/dL Low 11.9-15.1 [facility] Comment on above: Performed By: #### C BC, BMP #### [address] [place] [phone] Creel Selector: Bi Jackson MD #### HIVCMB, PHEP #### [place] [phone] Creel Selector: Vamshi Acosta MD MCH (RBC) [Entitic mass] 27.1 pg Normal 25.2-33.5 [facility] Comment on above: Performed By: #### C BC, BMP #### [address] [place] [phone] Creel Selector: Bi Jackson MD #### HIVCMB, PHEP #### [address] [phone] Creel Selector: Vamshi Acosta MD MCHC (RBC) [Mass/Vol] 30.7 g/dL Normal 28.4-34.8 [facility] Comment on above: Performed By: #### C BC, BMP #### [address] [place] [address] Creel Selector: Bi Jackson MD #### HIVCMLucretia, PHEP #### [address] [phone] Creel Selector: Vamshi Acosta MD MCV (RBC) [Entitic vol] 88.3 fL Normal 82.6-102.9 [facility] Comment on above: Performed By: #### C BC, BMP #### [facility] [address] [place], [place] [phone] Creel Selector: Bi Jackson MD #### HIVCMB, PHEP #### [address] [place], [place] [phone] Creel Selector: Vamshi Acosta MD NRBC Automated 0.0 per 100 WBC Normal 0.0 [facility] Comment on above: Performed By: #### C BC, BMP #### [facility] [address] [place] [address] Dr. [place], [place] [phone] Creel Selector: Bi Jackson MD #### HIVCMB, PHEP #### [address] [address] Creel Selector: Vamshi Acosta MD Platelet mean volume (Bld) [Entitic vol] 10.5 fL Normal 8.1-13.5 [facility] Comment on above: Performed By: #### C BC, BMP #### [facility] [address] [place] [address] Dr. [place], [place] [phone] Creel Selector: Bi Jackson MD #### HIVCMB, PHEP #### [address] [address] Creel Selector: Vamshi Acosta MD Platelets (Bld) [#/Vol] 271 10*3/uL Normal 138-453 [facility] Comment on above: Performed By: #### C BC, BMP #### [facility] [address] [place] [address] Dr. [place], [place] [phone] Creel Selector: Bi Jackson MD #### HIVCMB, PHEP #### [address] [phone] Creel Selector: Vamshi Acosta MD RBC (Bld) [#/Vol] 4.35 10*6/uL Normal 3.95-5.11 [facility] Comment on above: Performed By: #### C BC, BMP #### [facility] [address] [place], [place] [phone] Creel Selector: Bi Jackson MD #### HIVCMB, PHEP #### [facility] [address] [place], [place] [phone] Creel Selector: Vamshi Acosta MD WBC (Bld) [#/Vol] 6.4 10*3/uL Normal 3.5-11.3 [facility] Comment on above: Performed By: #### C BC, BMP #### [facility] [address] [place] [address] [place] [address] Creel Selector: Bi Jackson MD #### HIVCMLucretia, PHEP #### [facility] [address] [place], [place] [phone] Creel Selector: Vamshi Acosta MD Hematocrit (Bld) [Volume fraction] 38.4 % 36.3 - 47.1 % [facility] Hemoglobin (Bld) [Mass/Vol] 11.8 g/dL Low 11.9 - 15.1 g/dL [facility] Interpretation and review of laboratory results Abnormal [facility] MCH (RBC) [Entitic mass] 27.1 pg 25.2 - 33.5 pg [facility] MCHC (RBC) [Mass/Vol] 30.7 g/dL 28.4 - 34.8 g/dL [facility] MCV (RBC) [Entitic vol] 88.3 fL 82.6 - 102.9 fL [facility] NRBC Automated 0.0 0.0 per 100 WBC [facility] Platelet distribution width (Bld) [Ratio] 14.6 % High 11.8 - 14.4 % [facility] Platelet mean volume (Bld) [Entitic vol] 10.5 fL 8.1 - 13.5 fL [facility] Platelets (Bld) [#/Vol] 271 10*3/uL [facility] RBC (Bld) [#/Vol] 4.35 10*6/uL 3.95 - 5.1 1 m/uL [facility] WBC (Bld) [#/Vol] 6.4 10*3/uL [facility] Hepatitis Acute [facility] 02-26 Hep A Ab,IgM Non-Reactive Normal [facility] Comment on above: Performed By: #### C BC, BMP #### [facility] [address] [place] [address] [place] [address] Creel Selector: Bi Jackson MD #### HIVCMB, PHEP #### [address] [phone] Creel Selector: Vamshi Acosta MD Hep B Core Ab,IgM Non-Reactive Normal [facility] Comment on above: Performed By: #### C BC, BMP #### [address] [place], [place] [phone] Creel Selector: Bi Jackson MD #### HIVCMB, PHEP #### [address] [phone] Creel Selector: Vamshi Acosta MD Hep B Surf Ag Non-Reactive Normal [facility] Comment on above: Performed By: #### C BC, BMP #### [facility] [address] [place] [address] Dr. [place], [place] [phone] Creel Selector: Bi Jackson MD #### HIVCMB, PHEP #### [address] [address] Creel Selector: Vamshi Acosta MD Hep C Ab Non-Reactive Normal [facility] Comment on above: Result Comment: The hepatitis C procedure used in our laboratory is a Chemiluminescent test specific for three recombinant HCV antigens. A negative anti-HCV result indicates that the antibodies to hepatitis C virus are not present at this time. Individuals with reactive anti-HCV should be considered infected and infectious until proven otherwise. Confirmation of all equivocal or reactive results is recommended by ordering HCV RNA by PCR. Performed By: #### C BC, BMP #### [facility] [address] [place] [address] Creel Selector: Bi Jackson MD #### HIVCMB, PHEP #### [facility] [address] [place], [place] [phone] Creel Selector: Vamshi Acosta MD Hepatitis Panel, Acuteon HAV IgM IA Qn (S) Non-Reactive NONREACTIVE [facility] Hep B Core Ab, IgM Non-Reactive NONREACTIVE [facility] Hepatitis B Surface Ag Non-Reactive NONREACTIVE [facility] Hepatitis C Ab Non-Reactive NONREACTIVE [facility] Comment on above: The hepatitis C procedure used in our laboratory is a Chemiluminescent test specific for three recombinant HCV antigens. A negative anti-HCV result indicates that the antibodies to hepatitis C virus are not present at this time. Individuals with reactive anti-HCV should be considered infected and infectious until proven otherwise. Confirmation of all equivocal or reactive results is recommended by ordering HCV RNA by PCR. [facility] Urine culture routineOrdered By: Robin Renee on 10-11-2021 Bacteria identified Cx Nom (U) Escherichia coli [facility] Albumin [Mass/volume] in Ser um or PlasmaOrdered By: Robin Renee on 10-08-2021 Albumin [Mass/Vol] 4.7 g/dL 3.2-5.5 [facility] Amphetamine Screen Ql (U)Ord ered By: Robin Renee on 10-08-2021 Amphetamines Ql (U) Positive Negative [facility] Automated erythrocytes count in urine sediment (number/area)Ordered By: Robin Renee on 10-08-2021 RBC Auto (Urine sed) [#/Area] 5-9 [HPF] 0-4 [facility] Automated leukocytes count i n urine sediment (number/area)Ordered By: Robin Renee on 10-08-2021 WBC Auto (Urine sed) [#/Area] 50-100 [HPF] 0-4 [facility] Automated urine hyaline cast s count (number/volume)Ordered By: Robin Renee on 10-08-2021 Hyaline casts Auto (U) [#/Vol] None seen [LPF] 0-1 [facility] Barbiturates [Presence] in U rineOrdered By: Robin Renee on 10-08-2021 Barbiturates Ql (U) Negative Negative [facility] Basophils Auto (Bld) [#/Vol] Ordered By: Robin Renee on 10-08-2021 Basophils (Bld) [#/Vol] 0.0 10*3/uL 0.0-0.2 [facility] Basophils/100 WBC Auto (Bld) Ordered By: Robin Renee on 10-08-2021 Basophils/100 WBC (Bld) 0.4 % . [facility] Benzodiazepines [Presence] i n UrineOrdered By: Robin Renee on 10-08-2021 Benzodiazepines Ql (U) Positive Negative [facility] Bilirubin Test strip Ql (U)O rdered By: Robin Renee on 10-08-2021 Bilirubin Ql (U) Negative Negative [facility] Blood hemoglobin measurement (mass/volume)Ordered By: Robin Renee on 10-08-2021 Hemoglobin (Bld) [Mass/Vol] 13.7 g/dL 11.8-15.4 [facility] Blood leukocytes automated c ount (number/volume)Ordered By: Robin Renee on 10-08-2021 WBC (Bld) [#/Vol] 10.1 10*3/uL 4.5-11.0 [facility] Cannabinoids [Presence] in U rine by Screen methodOrdered By: Robin Renee on 10-08-2021 Cannabinoids Screen Ql (U) Negative Negative [facility] Comment on above: These are unconfirme d results and should not be used for legal purposes. Drug Cut-Off Concentration: AMPH 1000 ng/mL BRITTANY 200 ng/mL ROSA M 200 ng/mL COCM 300 ng/mL OP 300 ng/mL PCP 25 ng/mL THC 20 ng/mL Casts typing in urine sedime nt by light microscopyOrdered By: Robin Renee on 07-26-2022 Casts LM Nom (Urine sed) None seen [LPF] None Seen [facility] Color Auto (U)Ordered By: Adriana Renee on 10-08-2021 Color (U) Dark yellow Yellow [facility] Creatinine and Glomerular fi ltration rate.predicted panel (S/P/Bld)Ordered By: Robin Renee on 10-08-2021 Creatinine [Mass/Vol] 0.90 mg/dL 0.44-1.[address] [facility] Eosinophils Auto (Bld) [#/Vo l]Ordered By: Robin Renee on 10-08-2021 Eosinophils (Bld) [#/Vol] 0.0 10*3/uL 0.0-0.45 [facility] Eosinophils/100 WBC Auto (Bl d)Ordered By: Robin Renee on 10-08-2021 Eosinophils/100 WBC (Bld) 0.3 % . [facility] Erythrocyte distribution wid th Auto (RBC) [Ratio]Ordered By: Robin Renee on 10-08-2021 Erythrocyte distribution width (RBC) [Ratio] 14.8 % 11.9-15.3 [facility] Estimated glomerular filtrat ion rate (GFR) non- AmericanOrdered By: Robin Renee on 10-08-2021 GFR/1.73 sq M.predicted among non-blacks MDRD (S/P/Bld) [Vol rate/Area] > 60 mL/Min [facility] Globulin Calc (S) [Mass/Vol] Ordered By: Robin Renee on 10-08-2021 Globulin (S) [Mass/Vol] 3.2 g/dL [facility] HCG ( test) IA.rapi d Ql (U)Ordered By: Robin Renee on 10-08-2021 HCG ( test) Ql (U) Negative [facility] Hematocrit Auto (Bld) [Volum e fraction]Ordered By: Robin Renee on 10-08-2021 Hematocrit (Bld) [Volume fraction] 42.6 % 34.0-46.4 [facility] Ketones Auto test strip (U) [Mass/Vol]Ordered By: Robin Renee on 10-08-2021 Ketones (U) [Mass/Vol] Negative Negative [facility] Laboratory - Drug toxicology Ordered By: Robin Renee on 10-08-2021 Opiates Ql (U) Negative Negative [facility] Laboratory - Hematology and Cell countsOrdered By: Robin Renee on 10-08-2021 Nucleated RBC/100 WBC (Bld) [Ratio] 0.1 % 0-0.5 [facility] Lymphocytes Auto (Bld) [#/Vo l]Ordered By: Robin Renee on 10-08-2021 Lymphocytes (Bld) [#/Vol] 3.3 10*3/uL 1.00-4.8 [facility] Lymphocytes/100 WBC Auto (Bl d)Ordered By: Robin Renee on 10-08-2021 Lymphocytes/100 WBC (Bld) 32.9 % . [facility] MCH Auto (RBC) [Entitic mass ]Ordered By: Robin Renee on 10-08-2021 MCH (RBC) [Entitic mass] 26.4 pg 24.7-34.3 [facility] MCHC Auto (RBC) [Mass/Vol]Or dered By: Robin Renee on 10-08-2021 MCHC (RBC) [Mass/Vol] 32.3 g/dL 32.0-35.0 [facility] MCV Auto (RBC) [Entitic vol] Ordered By: Robin Renee on 10-08-2021 MCV (RBC) [Entitic vol] 81.8 fL 80-100 [facility] Monocytes Auto (Bld) [#/Vol] Ordered By: Robin Renee on 10-08-2021 Monocytes (Bld) [#/Vol] 1.0 10*3/uL 0.0-0.8 [facility] Monocytes/100 WBC Auto (Bld) Ordered By: Robin Renee on 10-08-2021 Monocytes/100 WBC (Bld) 9.6 % . [facility] Neutrophils Auto (Bld) [#/Vo l]Ordered By: Robin Renee on 10-08-2021 Neutrophils (Bld) [#/Vol] 5.7 10*3/uL 1.8-7.7 [facility] Neutrophils/100 WBC Auto (Bl d)Ordered By: Robin Renee on 10-08-2021 Neutrophils/100 WBC (Bld) 56.8 % . [facility] Nitrite Test strip Ql (U)Ord ered By: Roibn Renee on 10-08-2021 Nitrite Ql (U) Negative Negative [facility] No Panel InformationOrdered By: Robin Renee on 10-08-2021 Estimated GFR () > 60 mL/Min [facility] Comment on above: GFR estimated refere nce range: According to KDOQI guidelines, <60 ml/min/1.73m2 is sufficient to diagnose a patient with chronic kidney disease. Pharmacy Creatinine Clearance (Chem 74.23 [facility] Phencyclidine Screen Ql (U)O rdered By: Robin Renee on 10-08-2021 Phencyclidine Ql (U) Negative Negative [facility] Platelet mean volume Auto (B ld) [Entitic vol]Ordered By: Robin Renee on 10-08-2021 Platelet mean volume (Bld) [Entitic vol] 8.7 fL 6.3-10.7 [facility] Platelets Auto (Bld) [#/Vol] Ordered By: Robin Renee on 10-08-2021 Platelets (Bld) [#/Vol] 403 10*3/uL 150-450 [facility] Protein Auto test strip (U) [Mass/Vol]Ordered By: Robin Renee on 10-08-2021 Protein (U) [Mass/Vol] 300 mg/dL Negative [facility] Protein [Mass/volume] in Ser um or PlasmaOrdered By: Robin Renee on 10-08-2021 Protein [Mass/Vol] 7.9 g/dL 6.1-7.9 [facility] RBC Auto (Bld) [#/Vol]Ordere d By: Robin Renee on 10-08-2021 RBC (Bld) [#/Vol] 5.21 10*6/uL 3.60-5.00 [facility] Serum or plasma alanine crowe otransferase measurement without P-5'-P (enzymatic activiOrdered By: Robin Renee on 10-08-2021 ALT No additional P-5'-P [Catalytic activity/Vol] 17 U/L 10-60 [facility] Serum or plasma albumin/glob ulin mass ratioOrdered By: Robin Renee on 10-08-2021 Albumin/Globulin [Mass ratio] 1.5 {ratio} [facility] Serum or plasma alkaline gordo sphatase measurement (enzymatic activity/volume)Ordered By: Robin Renee on 10-08-2021 ALP [Catalytic activity/Vol] 61 U/L 32-92 [facility] Serum or plasma aspartate am inotransferase measurement (enzymatic activity/volume)Ordered By: Robin Renee on 10-08-2021 AST [Catalytic activity/Vol] 23 U/L 10-42 [facility] Serum or plasma calcium mable urement (mass/volume)Ordered By: Robin Renee on 10-08-2021 Calcium [Mass/Vol] 9.7 mg/dL 8.2-10.2 [facility] Serum or plasma chloride aravind surement (moles/volume)Ordered By: Robin Renee on 10-08-2021 Chloride [Moles/Vol] 105 mmol/L 95-114 [facility] Serum or plasma glucose mable urement (mass/volume)Ordered By: Robin Renee on 10-08-2021 Glucose [Mass/Vol] 119 mg/dL 70-100 [facility] Comment on above: ADA recommended refe rence range Random Glucose Reference Range is dependent on time and content of last meal. Glucose of more than 200 mg/dL in a nonstressed, ambulatory subject supports the diagnosis of Diabetes Mellitus. Serum or plasma potassium me asurement (moles/volume)Ordered By: Robin Renee on 10-08-2021 Potassium [Moles/Vol] 3.7 mmol/L 3.5-5.1 [facility] Serum or plasma sodium measu rement (moles/volume)Ordered By: Robin Renee on 10-08-2021 Sodium [Moles/Vol] 141 mmol/L 136-146 [facility] Serum or plasma total biliru bin measurement (mass/volume)Ordered By: Robin Renee on 10-08-2021 Bilirubin [Mass/Vol] 0.8 mg/dL 0.3-1.2 [facility] Serum or plasma total carbon dioxide measurement (moles/volume)Ordered By: Robin Renee on 10-08-2021 CO2 [Moles/Vol] 25.8 mmol/L 22.0-30.0 [facility] Serum or plasma urea nitroge n measurement (mass/volume)Ordered By: Robin Renee on 10-08-2021 Urea nitrogen [Mass/Vol] 20 mg/dL 9-23 [facility] Specific gravity Auto test s trip (U) [Rel density]Ordered By: Robin Renee on 10-08-2021 Specific gravity (U) [Rel density] 1.025 1.001-1.030 [facility] Squamous epithelial cells de tection in urine sediment by light microscopyOrdered By: Robin Renee on 10-08-2021 Epithelial cells.squamous LM Ql (Urine sed) 0-1 [HPF] 0-2 [facility] Urine bacteria detection by automated methodOrdered By: Robin Renee on 10-08-2021 Bacteria Auto Ql (U) 4+ None Seen [facility] Urine clarity by refractomet ry automatedOrdered By: Robin Renee on 10-08-2021 Clarity Refractometry automated (U) Cloudy Clear [facility] Urine cocaine detectionOrder ed By: Robin Renee on 10-08-2021 Cocaine Ql (U) Negative Negative [facility] Urine glucose measurement by automated test strip (mass/volume)Ordered By: Robin Renee on 10-08-2021 Glucose Auto test strip (U) [Mass/Vol] Normal mg/dL Normal [facility] Urine hemoglobin detection b y automated test stripOrdered By: Robin Renee on 10-08-2021 Hemoglobin Auto test strip Ql (U) Trace Negative [facility] Urine leukocyte esterase det ection by automated test stripOrdered By: Robin Renee on 10-08-2021 Leukocyte esterase Auto test strip Ql (U) 2+ Negative [facility] Urobilinogen Auto test strip (U) [Mass/Vol]Ordered By: Robin Renee on 10-08-2021 Urobilinogen (U) [Mass/Vol] Normal mg/dL Normal [facility] pH Auto test strip (U)Ordere d By: Robin Renee on 10-08-2021 pH (U) 6.0 [pH] 5.0-9.0 [facility] Progress Noteson 09-17-2021 [employer] Authentication Interface Message Text EMERGENCY TRIAGE, TREAT AND TRANSPORT (ET3) DOCUMENTATION OF TELEHEALTH VISIT Date / Time: 09/16/20212031 Name: Chiquis Barajas : 1990 SSN: [id number] EMS Agency: [facility] [] Verbal consent obtained [] Implied consent - patient with potential emergency medical condition requiring assessment of capacity to refuse treatment and/or transport VITAL SIGNS: see flowsheet documentation Reason for Telehealth Visit: Chief Complaint Patient presents with * Illegal drug abuse Welfare check, possible drug use History of Present Ilness: 31 y/o F h/o depression recently started on wellbutrin. EMS reports they were called for welfare check; they were called for possible drug use. Pt denies using drugs. States she hasn't been feeling great since starting wellbutrin. Denies SI, denies taking any medication more than prescribed. Pt states she feels fine and does not want to go to hospital. Additional pertinent PMHx, SocHx, FamHx: Depression, takes seroquel, trazodone, ibuprofen and hydroxyzine Review of Systems: denies pain, sob, cp, n/v. Exam: General: Awake, no distress ENT: normocephalic, atraumatic Pulmonary: No respiratory distress Cardiovascular: Well perfused Neurologic: Oriented to person, place, time and events. Moving all extremities equally. Psychiatric: Appropriate. Good insight and judgement. Medical Decision Making: Pt has capacity to refuse transport. Pt denies SI. Disposition Supported by Telehealth Assessment: ET3 transport decisions: Refused transport EMS Disposition Reported: Same ET3 Encounter Completed by: Suha Brandt MD Normal [facility] Covid-19 PCR (CVDTB)on 08-14 SARS-CoV-2 (COVID-19) RNA LYUBOV+probe Ql (Unsp spec) Detected Critically abnormal NOT DETECTED [facility] Comment on above: Result Comment: This test is not yet approved or cleared by the [place] FDA. When there are no FDA-approved or cleared tests available, and other criteria are met, FDA can make tests available under an emergency access mechanism called an Emergency Use Authorization (EUA). The EUA for this test is supported by the [place] of Health and Human Service's (HHS's) declaration that circumstances exist to justify the emergency use of in vitro diagnostics for the detection and/or diagnosis of the virus that causes COVID-19. This EUA will remain in effect (meaning this test can be used) for the duration of the COVID-19 declaration justifying emergency of IVDs, unless it is terminated or revoked by FDA (after which the test may no longer be used). Performed By: #### C VDTBH #### [facility] [address] [address] [address] Aakash Covington GROUP A STREP CULTUREon 08-14 S. pyogenes Ag Ql (Unsp spec) Culture Observations: NEGATIVE FOR GROUP A STREPTOCOCCUS. Normal The [facility] Comment on above: Performed By: #### G RASTCX, SSCRN ####[facility] [address] [address]Dr. Aakash Covington INFLUENZA A AND B AGon 08-25 INFLUANEGH SEE BELOW Normal The [facility] Comment on above: Result Comment: Nega tive for Flu A protein angiten. Infection due to Flu A cannot be ruled out. Flu A angiten in the sample may be below the detection limit of the test. Performed By: #### I NFLUAB #### [facility] [address] [place] [address] Dr. Aakash Covington INFLUBNEG SEE BELOW Normal The [facility] Comment on above: Result Comment: Nega tive for Flu B protein antigen. Infection due to Flu B cannot be ruled out. Flu B antigen in the sample may be below the detection limit of the test. Performed By: #### I NFLUAB #### [facility] [address] [place] [address] Dr. Aakash Covington INFLUENZA A AG Negative Normal NEGATIVE SEE COMMENT The [facility] Comment on above: Performed By: #### I NFLUAB #### [facility] [address] [place] [address] Dr. Aakash Covington INFLUENZA B AG Negative Normal NEGATIVE SEE COMMENT The [facility] Comment on above: Performed By: #### I NFLUAB #### [facility] [address] [place] [address] Dr. Aakash Covington INTERNAL CONTROLS Within Normal Limits Normal Within Normal Limits The [facility] Comment on above: Performed By: #### I NFLUAB #### [facility] [address] [place] [address] Dr. Aakash Covington STREPT SCREENon 08-25-2021 STREP SCREEN A Negative Normal NEGATIVE The [facility] Comment on above: Performed By: #### G RASTCX, SSCRN ####[facility] [address] [address]DrManish Covington CBC AUTO DIFFon 05-24-2021 BASO # 0.1 103/ul Normal 0.0-0.1 [facility] Comment on above: Performed By: #### C BC ####[facility] [address] [place], [place] [address]DrManish Covington Basophils/100 WBC (Bld) 0.6 % Normal 0.2-2.0 [facility] Comment on above: Performed By: #### C BC ####[facility] [address] [place], [place] [address]DrManish Covington EO # 0.0 103/ul Normal 0.0-0.7 [facility] Comment on above: Performed By: #### C BC ####[facility] [address] [place], [place] [address]DrManish Covington Eosinophils/100 WBC (Bld) 0.5 % Critically low 0.9-7.0 The [facility] Comment on above: Performed By: #### C BC ####[facility] [address] [place], [place] [address]Dr. Aakash Covington Erythrocyte distribution width (RBC) [Ratio] 16.3 % Critically high 11.0-15.0 [facility] Comment on above: Performed By: #### C BC ####[facility] [address] [place], [place] [address]Dr. Aakash Covington Hematocrit (Bld) [Volume fraction] 40.7 % Normal 36.0-48.0 [facility] Comment on above: Performed By: #### C BC ####[facility] [address] [place], [place] [address]DrManish Covington Hemoglobin (Bld) [Mass/Vol] 12.9 g/dL Normal 12.0-16.0 [facility] Comment on above: Performed By: #### C BC ####[facility] [address] [place], [place] [address]Dr. Aakash Covington IG # 0.03 10e3/ul Normal 0.00-0.03 [facility] Comment on above: Performed By: #### C BC ####[facility] [address] [address]Dr. Aakash Covington IG % 0.3 % Normal 0.0-0.5 [facility] Comment on above: Performed By: #### C BC ####[facility] [address] [address]DrManish Covington LYMPH # 3.1 103/ul Normal 1.2-3.8 [facility] Comment on above: Performed By: #### C BC ####[facility] [address] [address]DrManish Covington Lymphocytes/100 WBC (Bld) 34.9 % Normal 20.5-60.0 [facility] Comment on above: Performed By: #### C BC ####[facility] [address] [place], [place] [address]DrManish Covington MANUAL DIFF REQ NO Normal [facility] Comment on above: Performed By: #### C BC ####[facility] [address] [place], [place] [address]DrManish Covington MCH (RBC) [Entitic mass] 27.4 pg Normal 26.7-34.0 [facility] Comment on above: Performed By: #### C BC ####[facility] [address] [address]DrManish Covington MCHC (RBC) [Mass/Vol] 31.7 g/dL Normal 29.9-35.2 [facility] Comment on above: Performed By: #### C BC ####[facility] [address] [address]DrManish Covington MCV (RBC) [Entitic vol] 86.6 fL Normal 81.0-99.0 [facility] Comment on above: Performed By: #### C BC ####[facility] [address] [place], [place] [address]DrManish Covington MONO # 0.5 103/ul Normal 0.3-0.8 [facility] Comment on above: Performed By: #### C BC ####[facility] [address] [address]Dr. Aakash Covington Monocytes/100 WBC (Bld) 5.9 % Normal 1.7-12.0 [facility] Comment on above: Performed By: #### C BC ####[facility] [address] [address]Dr. Aakash Covington NEUT # 5.1 103/ul Normal 1.4-6.5 [facility] Comment on above: Performed By: #### C BC ####[facility] [address] [address]Dr. Aakash Covington Neutrophils/100 WBC (Bld) 57.8 % Normal 43.0-75.0 [facility] Comment on above: Performed By: #### C BC ####[facility] [address] [address]Dr. Aakash Covington Platelet mean volume (Bld) [Entitic vol] 9.4 fL Critically low 9.5-13.5 [facility] Comment on above: Performed By: #### C BC ####[facility] [address] [address]Dr. Aakash Covington PLT 504 103/ul Critically high 150-450 The [facility] Comment on above: Performed By: #### C BC ####[facility] [address] [address]Dr. Aakash Covington RBC 4.70 106/ul Normal 4.20-5.40 [facility] Comment on above: Performed By: #### C BC ####[facility] [address] [address]Dr. Aakash Covington WBC 8.8 103/ul Normal 4.0-11.0 [facility] Comment on above: Performed By: #### C BC ####[facility] [address] [address]Dr. Aakash Covington DRUG SCREEN RAPID (URINE)on 05-24-2021 AMP Negative Normal NEGATIVE [facility] Comment on above: Performed By: #### E RUR, DRUGRPD, UMICRO #### [facility] [address] [place] [address] Dr. Aakash Covington BAR Negative Normal NEGATIVE [facility] Comment on above: Performed By: #### E RUR, DRUGRPD, UMICRO #### [facility] [address] [place] [address] Dr. Aakash Covington BUP Negative Normal NEGATIVE [facility] Comment on above: Performed By: #### E RUR, DRUGRPD, UMICRO #### [facility] [address] [place] [address] Dr. Aakash Covington BZO Negative Normal NEGATIVE [facility] Comment on above: Performed By: #### E RUR, DRUGRPD, UMICRO #### [facility] [address] [place] [address] Dr. Aakash Covington PAVEL Negative Normal NEGATIVE [facility] Comment on above: Performed By: #### E RUR, DRUGRPD, UMICRO #### [facility] [address] [place] [address] Dr. Aakash Covington CUT-OFFS SEE BELOW Normal [facility] Comment on above: Result Comment: AMP (Amphetamine): 500ng/mL, BAR (Barbituates): 200 ng/mL, BZO (Benzodiazepines): 150 ng/mL, BUP (Buprenorphine): 10 ng/mL, PAVEL (Cocaine): 150 ng/mL, mAMP (Methamphetamine): 500 ng/mL, MTD (Methadone): 200 ng/mL, OPI (Opiates): 100 ng/mL, OXY (Oxycodone): 100 ng/mL, PCP (Phencyclidine): 25 ng/mL, PPX (Propoxyphene): 300 ng/mL, THC (Cannabinoids): 50 ng/mL, TCA (Trycyclic Antidepressants): 300 ng/mL Performed By: #### E RUR, DRUGRPD, UMICRO #### [facility] [address] [place] [address] Dr. Aakash Covington DRUG CUT HEADER DRUG CLASS TEST SYSTEM CUT-OFF CONCENTRATIONS ARE FOLLOWS: Normal [facility] Comment on above: Performed By: #### E RUR, DRUGRPD, UMICRO #### [facility] [address] [place] [address] Dr. Aakash Covington mAMP Negative Normal NEGATIVE [facility] Comment on above: Performed By: #### E RUR, DRUGRPD, UMICRO #### [facility] [address] [place] [address] Dr. Aakash Covington MTD Negative Normal NEGATIVE [facility] Comment on above: Performed By: #### E RUR, DRUGRPD, UMICRO #### [facility] [address] [place] [address] Dr. Aakash Covington OPI Negative Normal NEGATIVE [facility] Comment on above: Performed By: #### E RUR, DRUGRPD, UMICRO #### [facility] [address] [place] [address] Dr. Aakash Covington OXY Negative Normal NEGATIVE [facility] Comment on above: Performed By: #### E RUR, DRUGRPD, UMICRO #### [facility] [address] [place] [address] Dr. Aakash Covington PCP Negative Normal NEGATIVE [facility] Comment on above: Performed By: #### E RUR, DRUGRPD, UMICRO #### [facility] [address] [place] [address] Dr. Aakash Covington PPX Negative Normal NEGATIVE [facility] Comment on above: Performed By: #### E RUR, DRUGRPD, UMICRO #### [facility] [address] [place] [address] Dr. Aakash Covington TCA Negative Normal NEGATIVE [facility] Comment on above: Performed By: #### E RUR, DRUGRPD, UMICRO #### [facility] [address] [place] [address] Dr. Aakash Covington THC Negative Normal NEGATIVE [facility] Comment on above: Performed By: #### E RUR, DRUGRPD, UMICRO #### [facility] [address] [place] [address] Dr. Aakash Covington ER URINE PROFILEon 2 Bilirubin Ql (U) Negative Normal NEGATIVE The [facility] Comment on above: Performed By: #### E RUR, DRUGRPD, UMICRO #### [facility] [address] [place] [address] Dr. Aakash Covington Clarity (U) CLEAR Normal CLEAR [facility] Comment on above: Performed By: #### E RUR, DRUGRPD, UMICRO #### [facility] [address] [place] [address] Dr. Aakash Covington Color (U) YELLOW Normal YELLOW [facility] Comment on above: Performed By: #### E RUR, DRUGRPD, UMICRO #### [facility] [address] [place] [address] Dr. Aakash BOWEN A micrscopic examination will be performed if indicated. Normal [facility] Comment on above: Performed By: #### E RUR, DRUGRPD, UMICRO #### [facility] [address] [place] [address] Dr. Aakash Covington Glucose Ql (U) Negative Normal NEGATIVE [facility] Comment on above: Performed By: #### E RUR, DRUGRPD, UMICRO #### [facility] [address] [place] [address] Dr. Aakash Covington Hemoglobin Ql (U) Negative Normal NEGATIVE [facility] Comment on above: Performed By: #### E RUR, DRUGRPD, UMICRO #### [facility] [address] [place] [address] Dr. Aakash Covington Ketones Ql (U) Negative Normal NEGATIVE [facility] Comment on above: Performed By: #### E RUR, DRUGRPD, UMICRO #### [facility] [address] [place] [address] Dr. Aakash Covington LEUKOCYTES Negative Normal NEGATIVE [facility] Comment on above: Performed By: #### E RUR, DRUGRPD, UMICRO #### [facility] [address] [place] [address] Dr. Aakash Covington Nitrite Ql (U) Negative Normal NEGATIVE [facility] Comment on above: Performed By: #### DOMINIQUE MILLAN UMICRO #### [facility] [address] [place] [address] Dr. Aakash Covington pH (U) 5.5 [pH] Normal 5-9 [facility] Comment on above: Performed By: #### DOMINIQUE MILLAN UMICRO #### [facility] [address] [place] [address] Dr. Aakash Covington Protein (U) [Mass/Vol] 100 mg/dL Abnormal NEGATIVE/ TRACE [facility] Comment on above: Performed By: #### DOMINIQUE MILLAN UMICRO #### [facility] [address] [place] [address] Dr. Aakash Covington SPEC GRAVITY >=1.030 Abnormal 1.005-<=1.025 [facility] Comment on above: Performed By: #### DOMINIQUE MILLAN UMICRO #### [facility] [address] [place] [address] Dr. Aakash Covington UR MICRO IND INDICATED Normal [facility] Comment on above: Performed By: #### DOMINIQUE MILLAN UMICRO #### [facility] [address] [place] [address] Dr. Aakash Covington Urobilinogen Qn (U) 0.2 {Marco'U}/dL Normal 0.2 - 1. 0 [facility] Comment on above: Performed By: #### DOMINIQUE MILLAN, UMICRO #### [facility] [address] [place] [address] Dr. Aakash Covington PREG HCG QUALon 05-24-2021 , QUAL Negative Normal NEGATIVE [facility] Comment on above: Performed By: #### P REG ####[facility] [address] [address]. Aakash Covington PROF CHEM 8 (BAS METB)on Anion gap [Moles/Vol] 10.8 mmol/L Normal Th [facility] Comment on above: Performed By: #### B MP #### [facility] [address] [address] [address] Aakash Covington Calcium [Mass/Vol] 8.6 mg/dL Normal 8.4-10.2 [facility] Comment on above: Performed By: #### B MP #### [facility] [address] [address] [address] Aakash Covington Chloride [Moles/Vol] 102 mmol/L Normal 98-107 [facility] Comment on above: Performed By: #### B MP #### [facility] [address] [address] [address] Aakash Covington CO2 [Moles/Vol] 26.1 mmol/L Normal 22.0-30.0 [facility] Comment on above: Performed By: #### B MP #### [facility] [address] [address] [address] Aakash Covington Creatinine [Mass/Vol] 0.83 mg/dL Normal 0.52-1.04 [facility] Comment on above: Performed By: #### B MP #### [facility] [address] [address] [address] Aakash Covington EGFR-AF MONGOLIAN >60 Normal >=60 [facility] Comment on above: Performed By: #### B MP #### [facility] [address] [address] [address] Aakash Covington EGFR-NON AF MONGOLIAN >60 Normal >=60 [facility] Comment on above: Performed By: #### B MP #### [facility] [address] [address] [address] Aakash Covington Glucose [Mass/Vol] 153 mg/dL Critically high 74-106 [facility] Comment on above: Performed By: #### B MP #### [facility] [address] [address] [address] Aakash Covington Potassium [Moles/Vol] 3.9 mmol/L Normal 3.4-5.0 [facility] Comment on above: Performed By: #### B MP #### [facility] [address] [address] [address] Aakash Covington Sodium [Moles/Vol] 135 mmol/L Critically low 137-145 Th [facility] Comment on above: Performed By: #### B MP #### [facility] [address] [place] [address] Dr. Aakash Covington Urea nitrogen [Mass/Vol] 16.0 mg/dL Normal 7.0-17.0 [facility] Comment on above: Performed By: #### B MP #### [facility] [address] [place] [address] Dr. Aakash Covington Urea nitrogen/Creatinine [Mass ratio] 19.3 mg/mg Normal [facility] Comment on above: Performed By: #### B MP #### [facility] [address] [place] [address] Dr. Aakash Covington URINE MICROSCOPIC ONLYon BACTERIA TRACE Abnormal NONE SEEN [facility] Comment on above: Performed By: #### DOMINIQUE MILLAN, UMICRO #### [facility] [address] [place] [address] Dr. Aakash Covington Bacteria identified Cx Nom (U) NOT INDICATED Normal [facility] Comment on above: Performed By: #### Nathan STEWART DRUGANAYA, UMICRO #### [facility] [address] [place] [address] Dr. Aakash Covington CAST SEEN Abnormal NONE SEEN [facility] Comment on above: Performed By: #### Nathan STEWART DRUGANAYA, UMICRO #### [facility] [address] [place] [address] Dr. Aakash Covington Crystals LM Nom (Urine sed) NONE SEEN Normal NONE SEEN [facility] Comment on above: Performed By: #### E PAT DRUGANAYA, UMICRO #### [facility] [address] [place] [address] Dr. Aakash Covington Epithelial cells LM Ql (Urine sed) MODERATE Abnormal NONE SEEN /RARE [facility] Comment on above: Performed By: #### E PAT DRUGRPZack, UMICRO #### [facility] [address] [address] [address] Aakash Covington HYALINE CAST RARE Normal [facility] Comment on above: Performed By: #### E RUR, DRUGRPD, UMICRO #### [facility] [address] [address] [address] Aakash Covington MUCOUS TRACE Abnormal NONE SEEN [facility] Comment on above: Performed By: #### E RUR, DRUGRPD, UMICRO #### [facility] [address] [address] [address] Aakash Covington RBC NONE SEEN Abnormal 0-2 [facility] Comment on above: Performed By: #### E RUR, DRUGRPD, UMICRO #### [facility] [address] [address] [address] Aakash Covington WBC 0-2 Abnormal NONE SEEN [facility] Comment on above: Performed By: #### E RUR, DRUGRPD, UMICRO #### [facility] [address] [address] [address] Aakash Covington Consenton 04-11-2021 Consent [id number]:127 Normal [facility] Registrationon 04-11-2021 Registration [id number]:127 Normal [facility] Progress Noteson 12-04-2020 [employer] Authentication Interface Message Text Late entry for 1425, pt given discharge instructions and verbalized an understanding. Normal The [employer] Authentication Interface Message Text MOTHER CHILD DEPENDENCY SOCIAL WORK NOTE: A Lyft has been scheduled to transport pt home. Pt expressed appreciation. Marva Echeverria [facility], [employer]NER [phone] Mother Child Dependency Program Normal The [employer] Authentication Interface Message Text In to discuss point of care with patient. Discharge planning has been coordinated by MARCO as documented. She is scheduled for an intake at [facility] 12/11/20 at 3:30PM. Family Medicine has written a bridge prescription for the patient to cover until that time for her current dose, Subutex 8mg BID. We will coordinate patient to receive Meds to Beds with a voucher provided for the Subutex given that the patient's insurance will not cover the prescription. It was explained to the patient via SW that she may use a voucher only once in a year. Patient states that she receives her OB care from Dr. Say Edwards at [facility]. I discussed obtaining medical records so that we may take as best care of her as possible. She declines to fill out a release of records for at this time, stating she does not plan to return to [facility] now that she has been provided a plan for Subutex therapy, therefore I will not pursue contacting her physician. Should Dr. Edwards want records from this admission, we would be happy to provide them if the patient consents to this. Additionally discussed iron deficiency anemia with a Hgb of 8.3. Explained to the patient implications of this diagnosis particularly in the setting of and risks for hemorrhage leading to severe anemia, including but not limited to possible need for blood transfusion, particularly in the setting of her comorbidities including three prior sections and parity. All questions answered to the patient's satisfaction. At the conclusion of our conversation, patient states she is amenable to iron infusion prior to discharge. Nursing staff aware and will proceed per protocol with test dose followed by infusion. Will remove IV immediately after infusion completed. She is otherwise stable for discharge today. I emphasized to the patient that is welcome to return to [facility] for care at any time. Ranjana Miller, DO ADVENTURE THERAPIST PGY-3 Normal The [employer] Authentication Interface Message Text MOTHER CHILD DEPENDENCY SOCIAL WORK NOTE: Per pharmacy, pts insurance will not cover her outpatient subutex Rx. Pt states she is not able to afford the cost of the medication. A medication voucher has been completed and forwarded to the pharmacy. Pt aware one medication voucher can be issued in a year period. Marva Echeverria [facility], [facility] [phone] Mother Child Dependency Program Normal The [employer] Authentication Interface Message Text EFM removed for reactive NST per Dr Miller Normal The [employer] Authentication Interface Message Text FM at bedside Normal The [employer] Care Plan Noteon 12-03-2020 [employer] Engineer Authentication Interface Message Text Problem: Routine Care: Goal: Patient care will be managed and maintained throughout hospital stay per unit specific routine care procedure Outcome: Progressing Care provided per routine [facility] standard of procedure Problem: Fluid and Electrolyte Imbalance: Goal: Will remain free of signs and symptoms of fluid loss/inadequate intake Outcome: Progressing Tolerating regular diet. One episode of emesis after drinking Glucola. Pt also refused IV FE dose today. Problem: Coping: Goal: Ability to identify and develop effective coping behavior will improve and/or be maintained Outcome: Progressing Pt pleasant. Appears more anxious today. No visitors at bedside Problem: Acute Pain: Goal: Ability to identify pain intensity on a pain scale and rate it consistently will be achieved and maintained Outcome: Progressing Pt with C/O abdominal cramping most of day. Nothing seems to help resolve cramps. Problem: Subtance Use/Abuse: Goal: Recovery from substance abuse will be initiated Outcome: Progressing COW scores increased today. Pt appears more anxious and uncomfortable. Problem: Safety: Goal: Patient will remain free of falls during hospital stay Outcome: Progressing Safe environment maintained. Call martin within reach. Rounding performed. Problem: Adult Discharge Planning: Goal: Discharge needs of the adult patient will be met Outcome: Progressing Social work to arrange outpt f/u Normal [facility] [facility] Wind Energy Engineer Authentication Interface Message Text Problem: Routine Care: Goal: Patient care will be managed and maintained throughout hospital stay per unit specific routine care procedure Outcome: Progressing Note: Plan of care discussed with pt. Pt oriented to room and unit routines. Questions answered at this time. Problem: Fluid and Electrolyte Imbalance: Goal: Will remain free of signs and symptoms of fluid loss/inadequate intake Outcome: Progressing Note: Encourage PO intake Problem: Coping: Goal: Ability to identify and develop effective coping behavior will improve and/or be maintained Outcome: Progressing Note: No barriers to coping identified Problem: Acute Pain: Goal: Ability to identify pain intensity on a pain scale and rate it consistently will be achieved and maintained Outcome: Progressing Note: Numeric pain scale used. Pt rating pain 4/10 at this time. Will give PRN pain meds as needed and encourage alternate methods of pain relief. Pt refusing tylenol at this time Problem: Subtance Use/Abuse: Goal: Recovery from substance abuse will be initiated Outcome: Progressing Note: Continue COWs scoring Q4h while pt is awake. Will collaborate with OB team for dosing and management. Will also collaborate with SW for d/c placement/resources for pt Problem: Safety: Goal: Patient will remain free of falls during hospital stay Outcome: Progressing Note: Bed low and locked position. Call light within reach. Problem: Adult Discharge Planning: Goal: Discharge needs of the adult patient will be met Outcome: Progressing Note: Will collaborate with OB team and SW for updated POC and d/c needs of pt. Normal The [facility] 12-03-2020 Wind Energy Engineer Authentication Interface Message Text MOTHER CHILD DEPENDENCY SOCIAL WORK NOTE: Met with pt briefly. Pt sleeping and respectfully asked that I return in an hour. Marva Echeverria [facility], [facility] [phone] Mother Child Dependency Program Normal The [facility] Progress Noteson 12-03-2020 Wind Energy Engineer Authentication Interface Message Text MOTHER CHILD DEPENDENCY SOCIAL WORK NOTE: PLAN: Discharge plan pending at this time. Followed up with pt this afternoon to discuss plan. Pt inquiring about discharge transportation home due to family emergency. Pt states her grandmother is ill and she is reconsidering placement at [facility]. Pt aware a Lyft cannot be arranged if leaving A. Pt shared that she has contacted [facility]. Pt states she has worked with the agency before for MAT services provided by Carayumiko Mason CNP. Pt would like to resume services here, closer to her home. Left voice mail asking that Ms. Mason contact me to develop MAT/IOP discharge plan. Pt aware I will follow up with her in the morning. Marva SOSA, [facility] [phone] Mother Child Dependency Program Normal [facility] [facility] Wind Energy Engineer Authentication Interface Message Text Pt given GlucoCrush to drink. Pt will call when she has finished drinking. Pt called out that she finished GlucoCrush @ 1025. Pt then called @ 10 minutes later stating she vomited the entire amount she drank. Amite fluid all over floor and in trash can. Dr Mensah notified. Pt also asking to eat breakfast first before IV start 12:30: Pt asked again if IV can be started for infusion of IV FE. Pt stated not now, i am feeling nauseated. Pt given Zofran will attempt IV start later. Dr Mensah notified via secure chat 1530: Pt now states she does not want the IV FE infusion or the vaccines. States she wants to talk with her own OB Dr villanueva. Dr Makenna notified via secure chat. Pt also refusing NST. States she has cramps. FHR doppled. Normal [facility] Wind Energy Engineer Authentication Interface Message Text Pt is requesting to sleep until @ 10 am then she will start the glucola and agree to IV start for IV FE Normal [facility] Care Plan Noteon 12-02-2020 Wind Energy Engineer Authentication Interface Message Text Problem: Routine Care: Goal: Patient care will be managed and maintained throughout hospital stay per unit specific routine care procedure Outcome: Progressing Care provided per routine APU standard of procedure Problem: Fluid and Electrolyte Imbalance: Goal: Will remain free of signs and symptoms of fluid loss/inadequate intake Outcome: Progressing Tolerating regular diet. Problem: Coping: Goal: Ability to identify and develop effective coping behavior will improve and/or be maintained Outcome: Progressing Pt pleasant. No visitors at bedside Problem: Acute Pain: Goal: Ability to identify pain intensity on a pain scale and rate it consistently will be achieved and maintained Outcome: Progressing Pt with C/O mild pain this AM prior to Subtex dose. Pain now resolved Problem: Subtance Use/Abuse: Goal: Recovery from substance abuse will be initiated Outcome: Progressing COW scores 1 AND 0 today. Minimal signs of withdrawal. Pt just states she is tired. Problem: Safety: Goal: Patient will remain free of falls during hospital stay Outcome: Progressing Safe environment maintained. Call martin within reach. Rounding performed. Problem: Adult Discharge Planning: Goal: Discharge needs of the adult patient will be met Outcome: Progressing Social work to arrange outpt f/u Normal [facility] Progress Noteson 12-02-2020 Wind Energy Engineer Authentication Interface Message Text Pt called out requesting to come off the [facility]. No resident available to [place] tracing. Pt states she wants to come off. Normal [facility] Wind Energy Engineer Authentication Interface Message Text Pt declining NST at this time. Asking if it can be done later Asked pt again about NST. Pt stated not now, I am just so tired. FHR doppled. Normal [facility] Wind Energy Engineer Authentication Interface Message Text [facility] Pt seen and examined. 30 year old 30w2d here with OUD withdrawal. Pt says subutex last night helped. Blood pressure 119/71, pulse 78, temperature 97.7 ???F (36.5 ???C), temperature source Oral, resp. rate 16, height 5' 2 (1.575 m), weight 130 lb (59 kg), SpO2 97 %, not currently . Tmax (24 hours): 98.1 ???F (36.7 ???C) Abd soft nt Ext nt A/P doing well. Continue to titrate subutex. SW to see her this weekend. NST daily. CPM. Teaching Physician Statement I saw and evaluated the patient. I personally obtained the kline and critical portions of the history and physical exam. I reviewed the resident's documentation and discussed the patient with the resident. I agree with the resident's medical decision making as documented in the resident's note. Mildred Horta MD Normal [facility] Care Plan Noteon 12-01-2020 Wind Energy Engineer Authentication Interface Message Text Problem: Routine Care: Goal: Patient care will be managed and maintained throughout hospital stay per unit specific routine care procedure Outcome: Progressing Intervention: Implement Routine Care Antepartum Procedure (continuous) Note: Unit routine implemented- pt oriented to room, call martin, care channel. Patient care will be managed and maintained throughout hospital stay per unit specific routine care procedure Orders being followed Problem: Fluid and Electrolyte Imbalance: Goal: Will remain free of signs and symptoms of fluid loss/inadequate intake Outcome: Progressing Problem: Coping: Goal: Ability to identify and develop effective coping behavior will improve and/or be maintained Outcome: Progressing Intervention: Identify available resources and support systems (ongoing) Note: Patient has been coping by trying to sleep Problem: Acute Pain: Goal: Ability to identify pain intensity on a pain scale and rate it consistently will be achieved and maintained Outcome: Progressing Intervention: Assess pain routinely using the developmentally appropriate pain scale (continuous) Note: Patient asleep mostly Problem: Subtance Use/Abuse: Goal: Recovery from substance abuse will be initiated Outcome: Progressing Problem: Safety: Goal: Patient will remain free of falls during hospital stay Outcome: Progressing Intervention: Assess for risk related to falls using age appropriate scale (continuous) Note: Side rails up times two, bed locked in lowest position, call martin within reach, non slip socks applied Problem: Adult Discharge Planning: Goal: Discharge needs of the adult patient will be met Outcome: Progressing Normal [facility] Wind Energy Engineer Authentication Interface Message Text Problem: Routine Care: Goal: Patient care will be managed and maintained throughout hospital stay per unit specific routine care procedure Outcome: Progressing Note: Plan of care discussed with pt. Pt oriented to room and unit routines. Questions answered at this time. Problem: Fluid and Electrolyte Imbalance: Goal: Will remain free of signs and symptoms of fluid loss/inadequate intake Outcome: Progressing Note: Encourage PO intake. Monitor I AND Os per order Problem: Coping: Goal: Ability to identify and develop effective coping behavior will improve and/or be maintained Outcome: Progressing Problem: Acute Pain: Goal: Ability to identify pain intensity on a pain scale and rate it consistently will be achieved and maintained Outcome: Progressing Note: Numeric pain scale used. Pt rating pain 9/10 at this time. Will give PRN pain meds as needed and encourage alternate methods of pain relief. Problem: Subtance Use/Abuse: Goal: Recovery from substance abuse will be initiated Outcome: Progressing Note: Continue COWs scoring Q4h while pt is awake. Will collaborate with OB team for dosing and management. Will also collaborate with SW for d/c placement/resources for pt Problem: Safety: Goal: Patient will remain free of falls during hospital stay Outcome: Progressing Note: Bed low and locked position. Call light within reach. Problem: Adult Discharge Planning: Goal: Discharge needs of the adult patient will be met Outcome: Progressing Note: Will collaborate with OB team and SW for updated POC and d/c needs of pt. Normal [facility] [employer] [facility] [employer] 12-01-2020 Wind Energy Engineer Authentication Interface Message Text Pt to be seen tomorrow as is covering multiple units and only scheduled until noon today. Tesha GUTIERREZ Weekdays: pgr [phone] or cell [phone] for Mother and Child Dependency Program Weekends: cell [phone] for Inpatient Weekend OB/Peds social media editor Normal [facility] Progress Noteson 12-01-2020 Wind Energy Engineer Authentication Interface Message Text To bedside to discuss CBC results with patient. Hgb 8.3 yesterday. Patient report feeling tired but otherwise asymptomatic. Recommended iron supplementation via transfusion. Patient reported that she would be amenable to this plan, however would prefer to have the transfusion tomorrow once she is more stable on subutex. Felicity Tucker MD ADVENTURE THERAPIST PGY-1 Normal [facility] COMPLETE BLOOD COUNTon 11-30 Erythrocyte distribution width (RBC) [Ratio] 16.8 % High 11.5-14.5 [facility] Comment on above: Performed By: #### C BC ####[facility] PATHOLOGY [id number] [place], [place], Hematocrit (Bld) [Volume fraction] 26.0 % Low 36.0-46.0 [facility] Comment on above: Performed By: #### C BC ####[facility] PATHOLOGY [id number] [place], [place], Hemoglobin (Bld) [Mass/Vol] 8.3 g/dL Low 12.0-15.0 [facility] Comment on above: Performed By: #### C BC ####[facility] PATHOLOGY [id number] [place], [place], MCH (RBC) [Entitic mass] 22.2 pg Low 26.0-34.0 The [facility] Comment on above: Performed By: #### C BC ####[facility] PATHOLOGY [id number] [place] [address], MCHC (RBC) [Mass/Vol] 31.7 g/dL Low 32.0-35.9 The [facility] Comment on above: Performed By: #### C BC ####[facility] PATHOLOGY [id number] [place], [place], MCV (RBC) [Entitic vol] 70 fL Low 80-100 [facility] Comment on above: Performed By: #### C BC ####[facility] PATHOLOGY [id number] [place], [place], Platelet mean volume (Bld) [Entitic vol] 8.3 fL Normal 7.5-11.2 The [facility] Comment on above: Performed By: #### C BC ####[facility] PATHOLOGY [id number] [place], [place], Platelets (Bld) [#/Vol] 265 10*3/uL Normal 150-400 [facility] Comment on above: Performed By: #### C BC ####[facility] PATHOLOGY [id number] [place], [place], RBC (Bld) [#/Vol] 3.73 10*6/uL Low 4.00-5.20 The [facility] Comment on above: Performed By: #### C BC ####[facility] PATHOLOGY [id number] [place], [place], WBC (Bld) [#/Vol] 6.7 10*3/uL Normal 4.5-11.5 The [facility] Comment on above: Performed By: #### C BC ####[facility] PATHOLOGY [id number] [place] [address], FERRITINon 11-30-2020 DOROTHY 4.3 ng/mL Low 10.3-219.0 The [facility] Comment on above: Performed By: #### R UB, DOROTHY, HEP A IGM, HEP A TOT, ANTI-HBS, HCV, HBSAG ####[facility] PATHOLOGY [id number] [place] [address], HEPATITIS A IGM ANTIBODYon 0 11-30-2020 HEP A IGM Non-Reactive Normal Nonreactive The [facility] Comment on above: Performed By: #### R UB, DOROTHY, HEP A IGM, HEP A TOT, ANTI-HBS, HCV, HBSAG ####[facility] PATHOLOGY [id number] [place] [address], HEPATITIS A TOTAL ANTIBODYon 11-30-2020 HEP A TOT Reactive Abnormal Nonreactive [facility] Comment on above: Performed By: #### R UB, DOROTHY, HEP A IGM, HEP A TOT, ANTI-HBS, HCV, HBSAG ####[facility] PATHOLOGY [id number] [place] [address], HEPATITIS B SURFACE ANTIBODY on 11-30-2020 ANTI-HBS < 3.1 Normal The [facility] Comment on above: Order Comment: Nonre active: Samples < 7.5 mIU/mL Reactive: Samples >/= 10.0 mIU/mL The accepted criteria for immunity to HBV is anti-HBs activity >/= 10 mIU/mL, as defined by the WHO International Reference Preparation. Performed By: #### R UB, DOROTHY, HEP A IGM, HEP A TOT, ANTI-HBS, HCV, HBSAG #### [facility] LABORATORY [address] [place] [address], HEPATITIS B SURFACE ANTIGENo n 11-30-2020 HBSAG Non-Reactive Normal Non-Reactive [facility] Comment on above: Performed By: #### R UB, DOROTHY, HEP A IGM, HEP A TOT, ANTI-HBS, HCV, HBSAG #### [facility] LABOR[facility]ORY [address] [place], [place], HEPATITIS C ANTIBODYon 11-30 HCV Non-Reactive Normal Nonreactive [facility] Comment on above: Performed By: #### R UB, DOROTHY, HEP A IGM, HEP A TOT, ANTI-HBS, HCV, HBSAG ####[facility] PATHOLOGY [id number] [place], [place], Performed By: #### H CV #### [facility] [address], [place], HIV1 HIV2 AGAB SCRNon 2020 HIV AG-AB SCREEN Non-Reactive Normal Non-Reactive [facility] Comment on above: Order Comment: HIV Information: ???[place] Rev. code 3701.243(E): This information has been disclosed to you from confidential records protected from disclosure by state law. ???You shall make no further disclosure of this information without the specific, written, and informed release of the individual to whom it pertains, or as otherwise permitted by state law. ???A general authorization for the release of medical or other information is not sufficient for the purpose of the release of HIV test results or diagnoses. Result Comment: No l aboratory evidence for HIV Infection. Negative result does not rule out acute HIV infection. If acute HIV infection is suspected, recommend ordering an HIV-1 RNA quanitification test. Performed By: #### h iv1 hiv2 agab scrn #### [facility] LABOR[facility]ORY [address] [place], [place], L AND D Triage Noteon 2020 [employer] Engineer Authentication Interface Message Text Pt took herself off the monitor and is requesting food. Normal [facility] [facility] [employer] [facility] Wind Energy Engineer Authentication Interface Message Text TRIAGE NOTE 11/30/2020 7:15 AM CC: opoid use disorder HPI: Chiquis Barajas is a 30 year old at Unknown gestation who presents for evaluation of opoid use disorder. Patient does not know her GA states she follows with Dr. Deal in private practice OB who se has seen 4 times this and has all her records. She states she has been seen 4 times this but has not gotten an ultrasound yet. She believes she is in her third trimester. She endorses snorting heroin and fentanyl every single day and has used throughout her entire . She has been using opiods and percocets on and off for 10 years. She currently snorts >1g of opiods. She spends about $100 a day and borrows money from friends. Denies trading sex for drugs. Denies IV drug use. She last used at 11pm and snorted heroin. Has been on subutex and methadone in the past. Was on subutex with last and believes she was on 12 but unsure. Would like to be initiated on subutex again today and understands that she can only be admitted to antepartum after starting the process of withdrawal and can not be actively high. Patient acknowledged an understanding. Denies contractions, LOF, and VB. Reports normal FM. ROS Constitutional: no fevers Eyes: no blurry vision Respiratory: no cough, wheezing, SOB Cardiovascular: no chest pain/pressure/tight ness, palpitations, edema Gastrointestinal: no nausea/vomiting, diarrhea, constipation, or bloody stools Genitourinary: no dysuria, hematuria, urinary frequency Neurologic: no headaches, seizures, syncope, numbness/tingling No active problems for No past medical history on file. There is no previous surgical history on file. No Known Allergies No current facility-administer ed medications on file prior to encounter. No current outpatient medications on file prior to encounter. O: There were no vitals taken for this visit. Gen: NAD HEENT: Normocephalic, atraumatic Cardio: Warm and well-perfused Resp: No increased work of breathing Abd: Soft and non-tender Extremities: No cyanosis or edema Neuro: No gross deficits Assessment/Plan: 30 year old at Unknown GA with c/o opoid use disorder. VSS and exam benign. Patient left AMA before we were able to continue her clinical assessment and plan. #) Opiate withdrawal - COWS 5 in triage - The patient was counseled on the risks of stopping opiates abruptly in . Risks include miscarriage, and stillbirth. We reviewed the recommendation to start either methadone or subutex during . We reviewed the pros and cons of the medications and that there is a 40-60% chance that the baby will have MAITE syndrome at delivery. We discussed that all babies are watched in the nursery for 7 days for withdrawal after delivery and treated with morphine or methadone if in withdrawal. We discussed that DCFS would likely be called at delivery and that we would obtain a toxicology screen at the time of delivery. I explained that the best chance of being allowed to parent by DCFS is if her toxicology screen at delivery is negative for illegal medication/drugs. The patient will be offered social work at NICU consults during her . The patient would like to start subutex - offered admission once COWS score reaches admission criteria, urine tox, and MAT once admitted - patient left AMA after being counseled but states that she will return tomorrow #) FWB: nonreactive but with mod variability --recommended patient stay at least until she had a reactive NST to evaluate well being as well as a bedside growth US to estimate her GA --patient left AMA after being counseled No future appointments. Pt staffed with attending Dr. Krystal Malin MD ADVENTURE THERAPIST PGY1 ATTENDING PROGRESS NOTE: I saw this 30 year old female at 30w0d gestation with Dr. Malin for evaluation of opioid use disorder, she left AMA before treatment initiated. I was present for the critical portions of the visit. The complete OB record including the OB episode, pertinent ultrasounds and lab data was reviewed. I reviewed and concur with the history, physical exam and plan documented above. I personally reviewed the patient's NST which was reactive. I personally reviewed her ultrasound as above. I discussed the management plan with the patient, answered her questions and gave her discharge instructions as well as instructions for follow-up Josué Parham, DO Normal [facility] NOVEL CORONAVIRUS (COVID-19) on 11-30-2020 SARS-CoV-2 (COVID-19) RNA LYUBOV+probe Ql (Unsp spec) Not detected Normal Not Detected [facility] Comment on above: Order Comment: This test is intended for use only under Emergency Use Authorization (EUA). This test was developed, and its performance characteristics determined by [employer] which is certified under CLIA as qualified to perform high complexity clinical laboratory testing. Result Comment: This assay was performed using [employer]??? RTPCR technology. Performed By: #### C [id number] #### S PATHOLOGY LABORATORY [address] [place] [address], Progress Noteson 11-30-2020 Wind Energy Engineer Authentication Interface Message Text 2006: MD Davie aware of pt COWS score of 11 at this time. Awaiting orders Normal [facility] Wind Energy Engineer Authentication Interface Message Text 0011: This RN entered triage 1 to fix EFM. Pt standing, fully dressed and requesting to leave AMA. Amira Malin MD aware. 0013: Amira Malin MD at bedside. Normal [facility] Wind Energy Engineer Authentication Interface Message Text 30 year old , OB History Para Term AB Living 1 0 0 0 0 0 SAB TAB Ectopic Multiple Live Births 0 0 0 0 0 Unknown seen today in Triage # 1 for C/O illegal drug use, requesting detox program Is Chiquis Barajas involved in any research studies? No If patient smokes, does she desire information/assista nce to quit? Declined info/assistance EFM applied at 2330. FHR 144 MHR 83 Amira Malin MD aware of patient's arrival and chief complaint. No current facility-administer ed medications on file prior to encounter. No current outpatient medications on file prior to encounter. Rachel San RN Normal [facility] RUBELLAon 11-30-2020 RUB 26.3 IU/mL Normal [facility] Comment on above: Order Comment: Nonre active : < or = 9.9 IU/mL Equivocal : 10.0 - 14.9 IU/mL Reactive : > or = 15.0 IU/mL * A Nonreactive test result indicates no current or previous infection with rubella virus. Such individuals are presumed to be susceptible to primary infection. * A Reactive test result indicates past or current infection with rubella virus or vaccination and indicates immunity to rubella. The following results were obtained using the Access Rubella IgG EIA assay. Values obtained with different train master???s assay methods may not be used interchangeably. Performed By: #### R UB, DOROTHY, HEP A IGM, HEP A TOT, ANTI-HBS, HCV, HBSAG #### S PATHOLOGY LABORATORY [address], [place], RUBELLA INTERPRETATION Reactive Normal [facility] Comment on above: Order Comment: Nonre active : < or = 9.9 IU/mL Equivocal : 10.0 - 14.9 IU/mL Reactive : > or = 15.0 IU/mL * A Nonreactive test result indicates no current or previous infection with rubella virus. Such individuals are presumed to be susceptible to primary infection. * A Reactive test result indicates past or current infection with rubella virus or vaccination and indicates immunity to rubella. The following results were obtained using the Access Rubella IgG EIA assay. Values obtained with different train master???s assay methods may not be used interchangeably. Performed By: #### R UB, DOROTHY, HEP A IGM, HEP A TOT, ANTI-HBS, HCV, HBSAG #### S PATHOLOGY LABORATORY [address], [place], SYPHILIS WITH CONFIRMATIONon 11-30-2020 SYPHILIS TOTAL (IGG/IGM) Non-Reactive Normal Non-Reactive [facility] Comment on above: Order Comment: No se rologic evidence of syphilis.If recent exposure/early infection is suspected, repeat testing in 2-4 weeks. Performed By: #### s yphilis with confirmation ####S PATHOLOGY [id number] [place], [place], TOX SCREEN W/CONFIRM - OB/GY Non 11-30-2020 ALCOHOL - TOX W/ CONF Negative Normal Cutoff: 10 [facility] Comment on above: Order Comment: Scree n results are reported as positive (at or above the cutoff) or negative (below the cutoff). The GC/MS testing (if applicable) was developed and its performance characteristics determined by The [facility] [facility] [employer] [facility] in a manner consistent with CLIA requirements. This test has not been cleared or approved by the U.S. Food and Drug Administration; however, the FDA has determined that such clearance or approval is not necessary. Performed By: #### o bgyntox #### S PATHOLOGY LABORATORY [address], [place], AMPH CL Negative Normal Cutoff: 1000 [facility] Comment on above: Order Comment: Scree n results are reported as positive (at or above the cutoff) or negative (below the cutoff). The GC/MS testing (if applicable) was developed and its performance characteristics determined by The [facility] in a manner consistent with CLIA requirements. This test has not been cleared or approved by the U.S. Food and Drug Administration; however, the FDA has determined that such clearance or approval is not necessary. Performed By: #### o bgyntox #### S PATHOLOGY LABORATORY [address] [place] [address], BRITTANY CL Negative Normal Cutoff: 200 [facility] Comment on above: Order Comment: Scree n results are reported as positive (at or above the cutoff) or negative (below the cutoff). The GC/MS testing (if applicable) was developed and its performance characteristics determined by [facility] in a manner consistent with CLIA requirements. This test has not been cleared or approved by the U.S. Food and Drug Administration; however, the FDA has determined that such clearance or approval is not necessary. Performed By: #### o bgyntox #### [facility] PATHOLOGY LABORATORY [address] [place] [address], BENZO CL Negative Normal Cutoff: 200 [facility] Comment on above: Order Comment: Scree n results are reported as positive (at or above the cutoff) or negative (below the cutoff). The GC/MS testing (if applicable) was developed and its performance characteristics determined by The [facility] in a manner consistent with CLIA requirements. This test has not been cleared or approved by the U.S. Food and Drug Administration; however, the FDA has determined that such clearance or approval is not necessary. Performed By: #### o bgyntox #### [facility] PATHOLOGY LABORATORY [address] [place] [address], COCAINE CL- TOX W/ CONF Negative Normal Cutoff: 300 [facility] Comment on above: Order Comment: Scree n results are reported as positive (at or above the cutoff) or negative (below the cutoff). The GC/MS testing (if applicable) was developed and its performance characteristics determined by [facility] in a manner consistent with CLIA requirements. This test has not been cleared or approved by the U.S. Food and Drug Administration; however, the FDA has determined that such clearance or approval is not necessary. Performed By: #### o bgyntox #### [facility] [address] [place] [address], FENTANYL Positive Abnormal Cutoff: 1 [facility] Comment on above: Order Comment: Scree n results are reported as positive (at or above the cutoff) or negative (below the cutoff). The GC/MS testing (if applicable) was developed and its performance characteristics determined by The [employer] [facility] [employer] [facility] in a manner consistent with CLIA requirements. This test has not been cleared or approved by the U.S. Food and Drug Administration; however, the FDA has determined that such clearance or approval is not necessary. Performed By: #### o bgyntox #### S PATHOLOGY LABORATORY [address], [place], METH CL Negative Normal Cutoff: 300 [facility] Comment on above: Order Comment: Scree n results are reported as positive (at or above the cutoff) or negative (below the cutoff). The GC/MS testing (if applicable) was developed and its performance characteristics determined by The [employer] [facility] [employer] [facility] in a manner consistent with CLIA requirements. This test has not been cleared or approved by the U.S. Food and Drug Administration; however, the FDA has determined that such clearance or approval is not necessary. Performed By: #### o bgyntox #### [facility] PATHOLOGY LABORATORY [address] [place] [address], OPI CL Negative Normal Cutoff: 300 [facility] Comment on above: Order Comment: Scree n results are reported as positive (at or above the cutoff) or negative (below the cutoff). The GC/MS testing (if applicable) was developed and its performance characteristics determined by The [employer] [facility] [employer] [facility] in a manner consistent with CLIA requirements. This test has not been cleared or approved by the U.S. Food and Drug Administration; however, the FDA has determined that such clearance or approval is not necessary. Performed By: #### o bgyntox #### [facility] PATHOLOGY LABORATORY [address], [place], OXYCODONE Negative Normal Cutoff: 100 [facility] Comment on above: Order Comment: Scree n results are reported as positive (at or above the cutoff) or negative (below the cutoff). The GC/MS testing (if applicable) was developed and its performance characteristics determined by The [employer] [facility] [employer] [facility] in a manner consistent with CLIA requirements. This test has not been cleared or approved by the U.S. Food and Drug Administration; however, the FDA has determined that such clearance or approval is not necessary. Result Comment: Oxyc odone and metabolites of Oxycodone (Oxymorphone, Noroxycodone, and Noroxymorphone) are measured/detected in this assay method. Performed By: #### o bgyntox #### S PATHOLOGY LABORATORY [address] [place] [address], PCP CL Negative Normal Cutoff: 25 [facility] Comment on above: Order Comment: Scree n results are reported as positive (at or above the cutoff) or negative (below the cutoff). The GC/MS testing (if applicable) was developed and its performance characteristics determined by The [employer] [facility] [employer] [facility] in a manner consistent with CLIA requirements. This test has not been cleared or approved by the U.S. Food and Drug Administration; however, the FDA has determined that such clearance or approval is not necessary. Performed By: #### o bgyntox #### S PATHOLOGY LABORATORY [address] [place] [address], THC CL - TOX W/ CONF Positive Abnormal Cutoff: 50 [facility] Comment on above: Order Comment: Scree n results are reported as positive (at or above the cutoff) or negative (below the cutoff). The GC/MS testing (if applicable) was developed and its performance characteristics determined by The [employer] [facility] [employer] [facility] in a manner consistent with CLIA requirements. This test has not been cleared or approved by the U.S. Food and Drug Administration; however, the FDA has determined that such clearance or approval is not necessary. Result Comment: This is a corrected result. Previous result on 11/30/2020 at 1607 EDT was In Process ng/mL Performed By: #### o bgyntox #### S PATHOLOGY LABORATORY [address] [place] [address], THC CONFIRMATION Positive Abnormal Cutoff: 15 [facility] Comment on above: Order Comment: Scree n results are reported as positive (at or above the cutoff) or negative (below the cutoff). The GC/MS testing (if applicable) was developed and its performance characteristics determined by The [employer] [facility] [employer] [facility] in a manner consistent with CLIA requirements. This test has not been cleared or approved by the U.S. Food and Drug Administration; however, the FDA has determined that such clearance or approval is not necessary. Result Comment: The drug analyte detected in this assay, 23-qpb-Xgucjpo-delta 9-THC, is a metabolite of pdkun-1-hxvdelcqspddzcckjibw (THC). Detection of 12-pzb-Hfchsmk-delta 9-THC suggests use of, or exposure to, a product containing THC. This test cannot distinguish between prescribed or non-prescribed forms of THC, nor can it distinguish between active or passive use. The 50-xeg-Nlojzqg-delta 9-THC metabolite may be detected in urine for several weeks. Performed By: #### o bgyntox #### S PATHOLOGY LABORATORY [address], [place], TYPE AND SCREENon 11-30-2020 ABO and Rh group Nom (Bld) Blood group A Rh(D) positive Normal [facility] Comment on above: Performed By: #### T S ####S PATHOLOGY [id number] [place], [place], ABO and Rh group Nom (Bld) No Previous Results Normal [facility] Comment on above: Performed By: #### T S ####S PATHOLOGY [id number] [place], [place], ABSC INT Negative Normal [facility] Comment on above: Performed By: #### T S ####S PATHOLOGY [id number] [place], [place], Vital Signs Date Time Vital Sign Value Performing Clinician Aarti jaime 10-08-2021 22:30-0400 Body temperature 98.9 [degF] MD Robin Renee Work Phone: [facility] 10-08-2021 22:30-0400 Diastolic blood pressure 106 mm[Hg] MD Robin Renee Work Phone: [facility] 10-08-2021 22:30-0400 Heart rate 127 /min MD Robin Renee Work Phone: [facility] 10-08-2021 22:30-0400 Respiratory rate 20 /min MD Robin Renee Work Phone: [facility] 10-08-2021 22:30-0400 SaO2% (BldA) [Mass fraction] 96 % MD Robin Renee Work Phone: [facility] 10-08-2021 22:30-0400 Systolic blood pressure 139 mm[Hg] MD Robin Renee Work Phone: [facility] 10-08-2021 17:39-0400 Body height 160.66 cm MD Robin Renee Work Phone: [facility] 10-08-2021 17:39-0400 Body weight 53.97 kg MD Robin Renee Work Phone: [facility] Encounters Encounter Date Encounter Type Care Provider Facility Start: 04-14-2023 End: 04-14-2023 ambulatory Charli Irving Other [employer] Other Start: 04-14-2023 Telephone encounter Charli WALKER [facility] Start: 04-13-2023 End: 04-13-2023 ambulatory Charli Irving Facility:[facility] Start: 03-26-2023 Telephone encounter Noms Provi aislinn Unallocated Work Phone: [facility] Start: 02-27-2023 End: 02-27-2023 ambulatory Charli Irving Facility:[facility] Start: 02-27-2023 End: 02-27-2023 Admission to same day surgery center [facility] Work Phone: [facility] Work Phone: Start: 02-27-2023 End: 02-27-2023 ambulatory [facility] Work Phone: [facility] Work Phone: Start: 06-09-2022 End: 06-10-2022 ambulatory [facility] Start: 06-09-2022 End: 06-09-2022 Subsequent hospital visit by physician [facility] Start: 04-09-2022 End: 04-10-2022 ambulatory [facility] Start: 04-09-2022 End: 04-09-2022 Subsequent hospital visit by physician [facility] Start: 03-14-2022 End: 03-14-[address] WALKER MISC Facility:[facility] Start: 03-03-2022 End: 03-03-[address] WALKER MISC Facility:[facility] Start: 02-26-2022 End: 02-27-2022 [facility]ulatory [facility] Start: 02-26-2022 End: 02-26-2022 Subsequent hospital visit by physician [facility] Start: 10-08-2021 End: 10-08-2021 Emergency department patient visit MD Robin Renee Work Phone: [facility] Start: 09-17-2021 End: 09-27-2021 ambulatory UNKNOWN PROVIDER Facility:[facility] Start: 08-25-2021 End: 08-25-[address] WALKER MISC Facility:[facility] Start: 05-24-2021 End: 05-24-[address] WALKER MISC Facility:[facility] Start: 03-21-2021 End: 03-21-[address] WALKER MISC Facility:[facility] Start: 11-30-2020 End: 12-04-2020 Evaluation and management of inpatient IGNACIO SANDS Facility:[facility] Start: 11-30-2020 End: 11-30-2020 Emergency department patient visit UNKNOWN PROVIDER Facility:[facility] Start: 11-30-2020 End: 11-30-2020 ambulatory JOSUÉ PARHAM [facility] Procedures Date Procedure Procedure Detail Performing Clinician Start: 06-09-2022 Antibody hiv-1&hiv-2 single result Christophe Sotomayor [employer] Work Phone: Start: 06-09-2022 Comprehensive metabo lic panel Christophe Sotomayor [employer] - [employer] Work Phone: Start: 04-09-2022 Comprehensive metabo lic panel Christophe Sotomayor [employer] - [employer] Work Phone: Start: 02-26-2022 Acute hepatitis panel E malik Sotomayor [employer] - [employer] Work Phone: Start: 02-26-2022 Basic metabolic pane l calcium total Christophe Sotomayor [employer] - [employer] Work Phone: Start: 10-08-2021 X-ray of lumbar spin e, two or three views MD Robin Renee Work Phone: Urine culture MD Robin Renee Work Phone: Plan of Treatment Date Care Activity Detail Author Start: 05-11-2023 End: 05-11-2023 Patient encounter procedure 05/11/2023 11:00 AM EST Office Visit [facility] [address] [place] [address] Alka Duarte PA [address] [place] [address] [facility] Start: 02-27-2023 [facility] Start: 02-27-2023 Colonoscopy DH Colonoscopy Diagnostic (Not Applicable) [facility] Start: 10-14-2021 Influenza vaccination Flu vaccine (# 1) [facility] Start: 2008 DTaP/Tdap/Td vaccine (1 - Tdap) DTaP/Tdap/Td vaccine (1 - Tdap) [facility] Start: 01-16-1990 COVID-19 Vaccine (#1) COVID-19 Vacci ne (#1) [facility] End: 02-26-2022 HIV Screen [facility] Work Phone: Comment on above: Once for 1 Occurrenc es starting 02/26/2022 until 02/26/2022 Patient Education Drug Abuse and Drug Addiction (DC) Urinary Tract Infection, Adult ED [facility] Work Phone: Patient referral [facility] Work Phone: Payers Date Payer Category Payer Medicaid [id number] 23 [id number] 2023 Self-pay 1990 Unknown [id number] 2.16. [id number] 1989 Unknown [id number] 2.16. [id number] 1989 Unknown [id number] 2.16. [id number] 1989 Unknown [id number] 2.16. [id number] 1989 Unknown [id number] 2.16.84 [id number] 1989 Unknown [id number] 2.16.84 [id number] 1989 Unknown [id number] 2.16.84 [id number] 1989 Unknown [id number] 2.16.84 [id number] 1989 Unknown [id number] 2.16.84 [id number] 1989 Unknown [id number] 2.16.8 [id number] 1989 Unknown [id number] 2.16.8 [id number] 1989 Unknown [id number] 2.16.8 [id number] 1960 Medicaid [id number] 1960 Medicaid [id number] 1960 Unknown [id number] Unknown [id number] 2.16.8 [id number] Unknown [id number] 2.16.8 [id number] Social History Date Type Detail Facility Tobacco smoking status [facility] Unknown if ever smoked [facility] Work Phone: Start: 1990 Sex Assigned At Female F [facility] Start: 10-11-2022 Tobacco smoking status NHIS Tobacco smoking consumption unknown [facility] Start: 1990 Sex Assigned At Not on file B ON [facility] Work Phone: Sex Assigned At [employer] Other Start: 10-11-2022 Alcohol intake Lifetime non-d zaki (finding) [facility] Start: 10-11-2022 Tobacco Comment Positive tobac co useDoes not smoke during [facility] Goals Date Patient Goal Desired Activity /State Clinical Notes 11-30-2020 to 03-26-2023 Telephone Encounter - ALAINA LYNN - 03/26/2023 10:36 AM ESTTelephone Encounter - ALAINA LYNN - 03/26/2023 10:36 AM ESTTelephone Encounter - Elsie Saha - 03/26/2023 10:25 AM EST Note Date & Type Note Facility 03-26-2023 Telephone encounter Note This patient is not a patient here. Called, [facility] on [address] asking for call back to triage. Not sure if this was correct office to call as there are several offices in area. [facility] 03-26-2023 Miscellaneous Notes This patient is not a patient here. Called, [facility] on [address] asking for call back to triage. Not sure if this was correct office to call as there are several offices in area. [facility] services called and said they receive a request for a pap results but they don't have any results for this patient.. documented in this encounter [facility] 03-26-2023 Telephone encounter Note [facility] services called and said they receive a request for a pap results but they don't have any results for this patient.. [facility] 12-04-2020 Note DISCHARGE SUMMARY [address] [address] Chiquis Barajas Date of : 1990 30 year old female Attending Tc Phipps MD Date of Admission 11/30/2020 Date of Discharge 12/04/20 [Principal Hospital Problem (Final Diagnosis)] Opiate withdrawal (HCC) [Secondary Hospital Problems] H/O section care in third trimester No discharge procedures on file. [facility] 12/11/20 @ 1530 Condition at Discharge Improved Activity No restrictions Diet No restrictions Disposition Home Functional Status Ambulatory Hospital Course Chiquis Barajas is a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 testing. Can't recall her blood type. Reports she is just coming here for detox and wants to keep her obstetric care with Dr. Edwards. Pt denies any contractions, vaginal bleeding, leakage of fluid. Reports active movement. This has been complicated by: - Genital herpes. Unable to recall most recent outbreak. - H/o CS x3. #1 for active herpetic outbreak at term in labor, #2 and #3 elective repeats. - Tobacco use. 03/19 PPD Dating Summary No data available OB History Para Term AB Living 4 3 3 3 SAB TAB Ectopic Multiple Live Births # Outcome Date GA Lbr Frankie/2nd Weight Sex Delivery Anes PTL Lv 4 Current 3 Term 10/27/19 CS-LTranv 2 Term 11/23/15 CS-LTranv 1 Term 07/05/14 cs gabriel lt Comments: active herpetic outbreak Prior Delivery: No. Prior Shoulder Dystocia: No. Prior Delivery: Yes. Low transverse. Number of prior Deliveries 3.. Diabetes in : None. Hypertension in : None Infertility treatment: None. Conditions: None. Other Maternal Medical Conditions: Drug use. Infections in : None. History: Pt unsure when she initially presented to care, but reports that she has seen her OB a couple times this Primary OB Provider: Nilesh Edwards Past medical, surgical, and family histories were reviewed and updated as necessary. Social History Tobacco Use Smoking status: Current Every Day Smoker Packs/day: 0.25 Types: Cigarettes Smokeless tobacco: Never Used Substance Use Topics Alcohol use: Not on file Drug use: Not on file No Known Allergies No current facility-administered medications on file prior to encounter. No current outpatient medications on file prior to encounter. OB Problem List None noted. Problems (from 11/29/20 to present) No problems associated with this episode. Neg for 10-point ROS, otherwise as stated in HPI O: BP 118/47 (BP Location: left arm) Pulse 95 Temp 98.3 ???F (36.8 ???C) (Oral) Resp 18 Ht 5' 2 (1.575 m) Wt 130 lb (59 kg) SpO2 99% BMI 23.78 kg/m??? GEN: NAD, although significantly irritable CV: WWP Lungs: No inc WOB Abd: soft, gravid, non-tender. Gravid, by exam pt is at least in 3rd trimester. Pfannenstiel incision, well-healed scar. Back: no CVAT Ext: trace edema, non-tender Neuro: no FND Vaginal Exam: deferred Membranes: intact SSE: Not indicated FHR: baseline 130 bpm, moderate variability, isolated spontaneous decel, + accels TOCO: acontractile US: SLIUP, cephalic, FHT+, anterior placenta, MVP 8.6 cm BPD: 7.82 cm (31w3d) HC: 28.26 cm (31w0d) AC: 27.01 cm (31w1d) FL: 5.35 cm (28w3d) EFW: 1518 g (50%ile) LABS: Component 11/30/2020 Amphetamine Class Negative Barbiturate Class Negative Benzodiazepine Class Negative Cocaine Class Negative Methadone Class Negative Opiate Class Negative PCP Class Negative THC Class In Process (H) Alcohol Negative Oxycodone, Urine Negative Fentanyl Positive (A) Assessment: 30 year old at ~30 weeks dated by 30 week US admitted for opiate withdrawal. #) Opiate withdrawal - COWS 6 on admission, urinary tox positive for fentanyl/THC - The patient was counseled on the risks of stopping opiates abruptly in . Risks include miscarriage, and stillbirth. We reviewed the recommendation to start either methadone or subutex (more content not included)... [facility] [employer] [facility] Evaluation note No assessment inform ation available [facility] Work Phone: Evaluation note No Information [employer] Other History general Narrative - Reported Type Medical History Kidney Stones Medical History Left Ovarian Cyst Medical History Polysubstance Abuse Medical History Restless Leg Syndrome Surgical History C- Section [phone] Surgical History Tubal Ligation 2020 Hospitalization History Kidney Stones 2019 [employer] Other Hospital Discharge instructions Additional Instructions Go to detox 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 Expl anation ACP-POST 05/09/2021 1:08 AM ACP-POST Advance Directive Response Recorded Date/ Time Advance Directives No October 08 5:55pm Chief Complaint and Reason for Visit Chief Complaint Back pain Chief Complaint Abdominal Pain, Diar aissatou, Dyspepsia Additional Source Comments INFORMATION SOURCE (unrecogn ized section and content) DATE CREATED AUTHOR [facility]20[facility] DATE CREATED AUTHOR AUTHOR'S ORGANIZ ATION 10/28/2021 [facility] DATE CREATED AUTHOR AUTHOR'S ORGANIZ ATION 03/18/2022 [facility] DATE CREATED AUTHOR AUTHOR'S ORGANIZ ATION 06/10/2022 [facility] DATE CREATED AUTHOR AUTHOR'S ORGANIZ ATION 04/20/2023 [facility] Care Teams (unrecognized sec tion and content) Team Status: Inactive Member Role Status Dates Robin Renee MD Emergency Provider Active PHYSICIAN NO FAMILY Primary Care Provider Active Team Status: Active Member Role Status Dates PHYSICIAN NO FAMILY Primary Care Provider Active Team Status: Active Member Role Status Dates Services [facility] Primary Care Provider Active Team Status: Inactive Member Role Status Dates Charli Irving MD Attending Provider Active Services [facility] Primary Care Provider Active Goals (unrecognized section and content) Goals may be documented in a n alternate sectionNo Information REASON FOR VISIT (unrecogniz ed section and content) orders FOR RECORDS PERTAINING TO PATIENTS WHO ARE OR HAVE BEEN ENROLLED IN A CHEMICAL DEPENDENCY/SUBSTANCEABUSE PROGRAM, SOME INFORMATION MAY BE OMITTED. This clinical summary was aggregated from multiple sources. Caution should be exercised in using it in the provision of clinical care. This summary normalizes information from multiple sources, and as a consequence, information in this document may materially change the coding, format and clinical context of patient data. In addition, data may be omitted in some cases. CLINICAL DECISIONS SHOULD BE BASED ON THE PRIMARY CLINICAL RECORDS. [employer] provides no warranty or guarantee of the accuracy or completeness of information in this document.
[2023-08-14] MEDS: METHYLPREDNISOLONE SOD SUCC PF 125 MG/2 ML VIAL IM (02:53)
== END 2023-08-14 02:59 | disposition home or self-care (01) ==
LOC: ER 02:46
PROVIDERS: Emergency Provider Emergency Medicine
DX: T78.49XA Other allergy, initial encounter (principal)
CPT/HCPCS: 96372; 99284; J2919

== ENCOUNTER 2024-04-28 20:54 | Emergency (ER) | payer OTHER, SELFPAY ==
--- OUTSIDE RECORDS SUMMARY | 2024-04-28 21:01 | XMS_ITS | CCD ---
Author Organization [facility] SHERIFF DETECTIVE [facility] Care Team Providers Care Social Work Supervisor Name Role Phone PROVIDER, UNKNOWN Attending Unavailable PROVIDER, UNKNOWN Admitting Unavailable PROVIDER, UNKNOWN Admitting Unavailable PROVIDER, UNKNOWN Attending Unavailable IGNACIO SANDS Admitting Unavailable REQUEST, IP SOCIAL WORK SERVICE Consulting Unavailable TC PHIPPS Attending Unavailable IPCON Consulting Unavailable JOSUÉ PARHAM Attending Unavailable JOSUÉ PARHAM Admitting Unavailable MD Robin Renee Emergency Provider [phone] NO FAMILY, PHYSICIAN Primary Care Provider Unava ilable Unavailable Primary Care Provider Unavailsu e MIKC, DR WALKER Primary Care Unavailable JAYLA, DR [...] Admitting Unavailsu NERI, DR MENDY Giron Attending Unavailabl e DARON, DR MENDY Giron Consulting Unavailabl e MISC, DR WALKER Primary Care Unavailable SCOTTIE LACEY Admitting Unavailable SCOTTIE LACEY Attending Unavailable LESLY GALVAN Consulting Unavailable SCOTTIE LACEY Consulting Unavailable CHRISTOPHE SOTOMAYOR Referring Unavailable CHRISTOPHE SOTOMAYOR Referring Unavailable CHRISTOPHE SOTOMAYOR Referring Unavailable MD Charli Irving Attending Provider [facility] Primary Care Provider Charli Irving Admitting Unavailable Charli Irving Attending Unavailable [facility] Primary Care Unavaila Charli Major Attending Unavailable [facility] Primary Care Unavaila Charli Major Admitting Unavailable Charli Irving Unavailable Unavailable Primary [...] mg capsule Active 100 MG PO Q12H 14 October 07, 2021 11:00pm Administer with a [...] HCG ( test) Ql (U) Negative Normal [facility] Comment on above: Result Comment: PERF ORMED BY: [facility] Rae [place] [address] PATHOLOGIST BUSINESS DIRECTOR KAM BARGER M.D. Performed By: #### U HCG #### [facility] [address] [id number] [facility] Andres 04-13-2023 L Specimen: [id number] Received: 04/13/23 Status: KINJAL Gutierrez Num: [id number] Spec Type: Surgical Subm Dr: Charli Irving MD Tissues: A Colon Biopsy (RANDOM COLON) Procedures: HE/2, Gross/Micro L4 Age/ Patient Sex Location Account Attending Physician Chiquis Estes 32/F [id number] Cahrli Irving MD SPEC NUM: [id number] RECD: 04/13/23 STATUS: KINJAL GUTIERREZ NUM: [id number] RAMON: 04/13/23 DR: Charli Irving MD ENTERED: 04/13/23 [facility] DR: SPEC TYPE: Surgical DEPT: S ORDERED: [...] in one cassette labeled A1. CPT Codes 03238 Specimen: [id number] Received: 04/13/23 Status: KINJAL Gutierrez Num: [id number] Spec Type: Surgical Subm Dr: Charli Irving MD Tissues: A Colon Biopsy (RANDOM COLON) Procedures: HE/2, Gross/Micro L4 Patient: KarlChiquis Armen [id number] (Continued) Signed (signatur e on file) Ole Gamez, DO 04/15/23 0820 Normal [facility] HCG ( test) Brianne dixon Ql (U)Ordered By: Charli Irving on 02-27-2023 HCG ( test) Ql (U) Negative [facility] HCG,Urineon 02-27-2023 Beta HCG ( test) Ql (U) Negative Normal [facility] Comment on above: Result Comment: PERF ORMED BY: [facility] [address] [place] [address] PATHOLOGIST BUSINESS DIRECTOR KAM BARGER M.D. Performed By: #### U HCG #### [facility] [address] [place] [address] [place] CBCon 06-09-2022 Erythrocyte distribution width (RBC) [Ratio] 14.4 % Normal 11.8-14.4 [facility] Comment on above: Performed By: #### C P, HCG, CBC #### [address] [place], [place] [phone] [employer] Supervisor: Bi Jackson MD #### HIVCMB, PHEP #### [address] [place], [place] [phone] [employer] Supervisor: Vamshi Acosta MD Hematocrit (Bld) [Volume fraction] 36.7 % Normal 36.3-47.1 [facility] Comment on above: Performed By: #### C P, HCG, CBC #### [address] [place] [phone] [employer] Supervisor: Bi Jackson MD #### HIVCMB, PHEP #### [address] [phone] [employer] Supervisor: Vamshi Acosta MD Hemoglobin (Bld) [Mass/Vol] 11.6 g/dL Low 11.9-15.1 [facility] Comment on above: Performed By: #### C P, HCG, CBC #### [address] [place] [phone] [employer] Supervisor: Bi Jackson MD #### HIVCMB, PHEP #### [place] [phone] [employer] Supervisor: Vamshi Acosta MD MCH (RBC) [Entitic mass] 27.0 pg Normal 25.2-33.5 [facility] Comment on above: Performed By: #### C P, HCG, CBC #### [address] [place] [phone] [employer] Supervisor: Bi Jackson MD #### HIVCMB, PHEP #### [address] [phone] [employer] Supervisor: Vamshi Acosta MD MCHC (RBC) [Mass/Vol] 31.6 g/dL Normal 28.4-34.8 [facility] Comment on above: Performed By: #### C P, HCG, CBC #### [facility] [address] [place], [place] 1353083 [employer] Supervisor: Bi Jackson MD #### HIVCMB, PHEP #### [address] [place], [place] [phone] [employer] Supervisor: Vamshi Acosta MD MCV (RBC) [Entitic vol] 85.3 fL Normal 82.6-102.9 [facility] Comment on above: Performed By: #### C P, HCG, CBC #### [facility] [address] [place], [place] [phone] [employer] Supervisor: Bi Jackson MD #### HIVCMB, PHEP #### [address] [place], [place] [phone] [employer] Supervisor: Vamshi Acosta MD NRBC Automated 0.0 per 100 WBC Normal 0.0 [facility] Comment on above: Performed By: #### C P, HCG, CBC #### [facility] [address] [place], [place] 4027983 [employer] Supervisor: Bi Jackson MD #### HIVCMB, PHEP #### [address] [place], [place] 9951608 [employer] Supervisor: Vamshi Acosta MD Platelet mean volume (Bld) [Entitic vol] 10.7 fL Normal 8.1-13.5 [facility] Comment on above: Performed By: #### C P, HCG, CBC #### [facility] [address] [place], [place] [phone] [employer] Supervisor: Bi Jackson MD #### HIVCMB, PHEP #### [address] [place], [place] 0001608 [employer] Supervisor: Vamshi Acosta MD Platelets (Bld) [#/Vol] 257 10*3/uL Normal 138-453 [facility] Comment on above: Performed By: #### C P, HCG, CBC #### [facility] [address] [place] [address] [employer] Supervisor: Bi Jackson MD #### HIVCMB, PHEP #### [address] [place], [place] [phone] [employer] Supervisor: Vamshi Acosta MD RBC (Bld) [#/Vol] 4.30 10*6/uL Normal 3.95-5.11 [facility] Comment on above: Performed By: #### C P, HCG, CBC #### [facility] [address] [place] [address] [place] [address] [employer] Supervisor: Bi Jackson MD #### HIVCMB, PHEP #### [address] [place], [place] 8076408 [employer] Supervisor: Vamshi Acosta MD WBC (Bld) [#/Vol] 4.2 10*3/uL Normal 3.5-11.3 [facility] Comment on above: Performed By: #### C P, HCG, CBC #### [address] [place] [address] [employer] Supervisor: Bi Jackson MD #### HIVCMB, PHEP #### [address] [place] [address] [employer] Supervisor: Vamshi Acosta MD Hematocrit (Bld) [Volume fraction] 36.7 % 36.3 - 47.1 % [facility] Hemoglobin (Bld) [Mass/Vol] 11.6 g/dL Low 11.9 - 15.1 g/dL [facility] Interpretation and review of laboratory results Abnormal [facility] MCH (RBC) [Entitic mass] 27.0 pg 25.2 - 33.5 pg [facility] MCHC (RBC) [Mass/Vol] 31.6 g/dL 28.4 - 34.8 g/dL [facility] MCV (RBC) [Entitic vol] 85.3 fL 82.6 - 102.9 fL [facility] NRBC Automated 0.0 0.0 per 100 WBC [facility] Platelet distribution width (Bld) [Ratio] 14.4 % 11.8 - 14.4 % [facility] Platelet mean volume (Bld) [Entitic vol] 10.7 fL 8.1 - 13.5 fL [facility] Platelets (Bld) [#/Vol] 257 10*3/uL [facility] RBC (Bld) [#/Vol] 4.30 10*6/uL 3.95 - 5.1 1 m/uL [facility] WBC (Bld) [#/Vol] 4.2 10*3/uL [facility] Comp Metabolic Profon 2022 Bilirubin [Mass/Vol] mg/dL Low 0.3-1.2 [facility] Comment on above: Performed By: #### C P, HCG, CBC #### [facility] [address] [place] [address] [place] [address] [employer] Supervisor: Bi Jackson MD #### HIVCMLucretia, PHEP #### [address] [address] [employer] Supervisor: Vamshi Acosta MD Albumin [Mass/Vol] 4.0 g/dL Normal 3.5-5.2 [facility] Comment on above: Performed By: #### C P, HCG, CBC #### [facility] [address] [place] [address] [place] [address] [employer] Supervisor: Bi Jackson MD #### HIVCMB, PHEP #### [address] [phone] [employer] Supervisor: Vamshi Acosta MD Albumin/Glob Ratio 1.4 Normal 1.0-2.5 [facility] Comment on above: Performed By: #### C P, HCG, CBC #### [facility] [address] [place] [address] Dr. [place] [phone] [employer] Supervisor: Bi Jackson MD #### HIVCMB, PHEP #### [address] [phone] [employer] Supervisor: Vamshi Acosta MD Alkaline Phos 66 U/L Normal 35-104 [facility] Comment on above: Performed By: #### C P, HCG, CBC #### [facility] [address] [place] [address] [place] [phone] [employer] Supervisor: Bi Jackson MD #### HIVCMB, PHEP #### [address] [phone] [employer] Supervisor: Vamshi Acosta MD ALT [Catalytic activity/Vol] 11 U/L Normal 5-33 [facility] Comment on above: Performed By: #### C P, HCG, CBC #### [facility] [address] [place] [address] [place] [phone] ( [employer] Supervisor: Bi Jackson MD #### HIVCMB, PHEP #### [place] [address] [employer] Supervisor: Vamshi Acosta MD Anion gap [Moles/Vol] 7 mmol/L Low 9-17 [facility] Comment on above: Performed By: #### C P, HCG, CBC #### [address] [place] [phone] [employer] Supervisor: Bi Jackson MD #### HIVCMB, PHEP #### [address] [phone] [employer] Supervisor: Vamshi Acosta MD AST [Catalytic activity/Vol] 16 U/L Normal <32 [facility] Comment on above: Performed By: #### C P, HCG, CBC #### [address] [place] [phone] [employer] Supervisor: Bi Jackson MD #### HIVCMB, PHEP #### [address] [place], [place] [phone] [employer] Supervisor: Vamshi Acosta MD BUN/CRE Ratio 25 High 9-20 [facility] Comment on above: Performed By: #### C P, HCG, CBC #### [facility] [address] [place] [address] [address]. [place] [phone] [employer] Supervisor: Bi Jackson MD #### HIVCMB, PHEP #### [address] [phone] [employer] Supervisor: Vamshi Acosta MD Calcium [Mass/Vol] 9.0 mg/dL Normal 8.6-10.4 [facility] Comment on above: Performed By: #### C P, HCG, CBC #### [address] [place] [phone] ( [employer] Supervisor: Bi Jackson MD #### HIVCMB, PHEP #### [address] [phone] [employer] Supervisor: Vamshi Acosta MD Chloride [Moles/Vol] 103 mmol/L Normal 98-107 [facility] Comment on above: Performed By: #### C P, HCG, CBC #### [facility] [address] [place] [address] Dr. [place] [phone] [employer] Supervisor: Bi Jackson MD #### HIVCMB, PHEP #### [address] [address] [employer] Supervisor: Vamshi Acosta MD CO2 [Moles/Vol] 29 mmol/L Normal 20-31 [facility] Comment on above: Performed By: #### C P, HCG, CBC #### [facility] [address] [place] [address] Dr. [place], [place] [phone] [employer] Supervisor: Bi Jackson MD #### HIVCMB, PHEP #### [facility] [employer] [facility] [place], [place] [phone] [employer] Supervisor: Vamshi Acosta MD Creatinine [Mass/Vol] 0.56 mg/dL Normal 0.50-0.90 [facility] Comment on above: Performed By: #### C P, HCG, CBC #### [facility] [address] [place] [address] [place] [address] [employer] Supervisor: Bi Jackson MD #### HIVCMB, PHEP #### [address] [phone] [employer] Supervisor: Vamshi Acosta MD GFR/1.73 sq M.predicted among non-blacks MDRD (S/P/Bld) [Vol rate/Area] mL/min/{1.73_m2} Normal >60 [facility] Comment on above: Result Comment: These [...] By: #### C P, HCG, CBC #### [address] [place] [address] [employer] Supervisor: Bi Jackson MD #### HIVCMB, PHEP #### [address] [phone] [employer] Supervisor: Vamshi Acosta MD Glucose [Mass/Vol] 105 mg/dL High 70-99 [facility] Comment on above: Performed By: #### C P, HCG, CBC #### [facility] [address] [place] [address] [place] [address] [employer] Supervisor: Bi Jackson MD #### HIVCMB, PHEP #### [address] [address] [employer] Supervisor: Vamshi Acosta MD Potassium [Moles/Vol] 3.9 mmol/L Normal 3.7-5.3 [facility] Comment on above: Performed By: #### C P, HCG, CBC #### [facility] [address] [place], [place] 3444583 [employer] Supervisor: Bi Jackson MD #### HIVCMB, PHEP #### [address] [address] [employer] Supervisor: Vamshi Acosta MD Protein [Mass/Vol] 6.8 g/dL Normal 6.4-8.3 [facility] Comment on above: Performed By: #### C P, HCG, CBC #### [facility] [address] [place] [address] Dr. [place], [place] [phone] [employer] Supervisor: Bi Jackson MD #### HIVCMB, PHEP #### [address] [address] [employer] Supervisor: Vamshi Acosta MD Sodium [Moles/Vol] 139 mmol/L Normal 135-144 [facility] Comment on above: Performed By: #### C P, HCG, CBC #### [facility] [address] [place] [address] Dr. [place], [place] [phone] [employer] Supervisor: Bi Jackson MD #### HIVCMB, PHEP #### [address] [address] [employer] Supervisor: Vamshi Acosta MD Urea nitrogen [Mass/Vol] 14 mg/dL Normal 6-20 [facility] Comment on above: Performed By: #### C P, HCG, CBC #### [facility] [address] [place] [address] Dr. [place], [place] 3219783 [employer] Supervisor: Bi Jackson MD #### HIVCMB, PHEP #### [address] [place] [address] [employer] Supervisor: Vamshi Acosta MD [facility] Metabolic Pane [facility] 06-09-2022 Albumin [Mass/Vol] 4 g/dL 3.5 - 5.2 g/dL [facility] Albumin/Globulin [Mass ratio] 1.4 {ratio} 1.0 - 2.5 [facility] ALP [Catalytic activity/Vol] 66 U/L 35 - 104 U/L [facility] ALT [Catalytic activity/Vol] 11 U/L 5 - 33 U/L [facility] Anion gap [Moles/Vol] 7 mmol/L Low 9 - 17 mmol/L [facility] AST [Catalytic activity/Vol] 16 U/L NINF - 32 U/L [facility] Bilirubin [Mass/Vol] mg/dL Low 0.3 - 1 .2 mg/dL [facility] Calcium [Mass/Vol] 9.0 mg/dL 8.6 - 10. 4 mg/dL [facility] Chloride [Moles/Vol] 103 mmol/L 98 - 10 7 mmol/L [facility] CO2 [Moles/Vol] 29 mmol/L 20 - 31 mmol/L [facility] Creatinine [Mass/Vol] 0.56 mg/dL 0.50 - 0.90 mg/dL [facility] GFR/1.73 sq M.predicted MDRD (S/P/Bld) [Vol rate/Area] - PINF [facility] Comment on above: These results are not [...] mg/dL High 70 - 99 mg/dL [facility] Interpretation and review of laboratory results Abnormal [facility] Potassium [Moles/Vol] 3.9 mmol/L 3.7 - 5.3 mmol/L [facility] Protein [Mass/Vol] 6.8 g/dL 6.4 - 8.3 g/dL [facility] Sodium [Moles/Vol] 139 mmol/L 135 - 144 mmol/L [facility] Urea nitrogen [Mass/Vol] 14 mg/dL 6 - 20 mg/dL [facility] Urea nitrogen/Creatinine (Bld) [Mass ratio] 25 High 9 - 20 [facility] HCG Qualitative, Serumon hCG Qual Negative NEGATIVE [facility] Comment on above: Specimens with hCG l evels near the threshold of the test (25 mIU/mL) may give a negative or indeterminate result. In such cases, another test should be performed with a new specimen in 48-72 hours. If early is suspected clinically in this setting, correlation with quantitative serum b-hCG level is suggested. [employer] has confirmed the use of plasma for this test. This has not been cleared or approved by the U.S. Food and Drug Administration. The FDA has determined that such clearance is not necessary. [facility] HCG Screen, Bloodon 06-10-19 23 HCG Screen, Blood Negative Normal NEG [facility] Comment on above: Result Comment: Spec imens with hCG levels near the threshold of the test (25 mIU/mL) may give a negative or indeterminate result. In such cases, another test should be performed with a new specimen in 48-72 hours. If early is suspected clinically in this setting, correlation with quantitative serum b-hCG level is suggested. [employer] has confirmed the use of plasma for this test. This has not been cleared or approved by the U.S. Food and Drug Administration. The FDA has determined that such clearance is not necessary. Performed By: #### C P, HCG, CBC #### [facility] [address] [place] [address] [employer] Supervisor: Bi Jackson MD #### HIVCMB, PHEP #### [facility] [address] [place] [address] [employer] Supervisor: Vamshi Acosta MD HIV Ag/Abon 03-27-2023 HIV Ag/Ab Non-Reactive Normal NR [facility] Comment on above: Result Comment: No l aboratory evidence of HIV infection. If acute HIV infection is suspected, consider testing for HIV-1 RNA. Performed By: #### C P, HCG, CBC #### [address] [place], [place] 2322983 [employer] Supervisor: Bi Jackson MD #### HIVCMB, PHEP #### [address] [address] [employer] Supervisor: Vamshi Acosta MD HIV Screenon 06-09-2022 HIV 1+2 Ab+HIV1 p24 Ag IA Ql Non-Reactive NONREACTIVE [facility] Comment on above: No laboratory eviden ce of HIV infection. If acute HIV infection is suspected, consider testing for HIV-1 RNA. [facility] Hepatitis Acute Jazzy 06-09 Hep A Ab,IgM Non-Reactive Normal [facility] Comment on above: Performed By: #### C P, HCG, CBC #### [address] [place], [place] 012[address] [employer] Supervisor: Bi Jackson MD #### HIVCMB, PHEP #### [address] [address] [employer] Supervisor: Vamshi Acosta MD Hep B Core Ab,IgM Non-Reactive Normal [facility] Comment on above: Performed By: #### C P, HCG, CBC #### [address] [place], [place] 5723583 [employer] Supervisor: Bi Jackson MD #### HIVCMB, PHEP #### [address] [address] [employer] Supervisor: Vamshi Acosta MD Hep B Surf Ag Non-Reactive Normal [facility] Comment on above: Performed By: #### C P, HCG, CBC #### [address] [place] [address] [employer] Supervisor: Bi Jackson MD #### HIVCMB, PHEP #### [facility] [address] [place] [address] [employer] Supervisor: Vamshi Acosta MD Hep C Ab Non-Reactive Normal NR [facility] Comment on above: Result Comment: The [...] By: #### C P, HCG, CBC #### [facility] [address] [place] [address] [place] [address] [employer] Supervisor: Bi Jackson MD #### HIVCMB, PHEP #### [address] [place], [place] [phone] [employer] Supervisor: Vamshi Acosta MD Hepatitis Panel, Acuteon HAV IgM Ql (S) Non-Reactive NONREACTIVE [facility] HBV core IgM Ql (S) Non-Reactive NONREACTIVE [facility] HBV surface Ag Ql (S) Non-Reactive NONREACTIVE [facility] HCV Ab Ql (S) Non-Reactive NONREACTIVE [facility] Comment on above: The hepatitis C [...] by ordering HCV RNA by PCR. [facility] Comp Metabolic Profon 2022 Albumin [Mass/Vol] 4.3 g/dL Normal 3.5-5.2 [facility] Comment on above: Performed By: #### C P #### [facility] [address] [place] [address] [employer] Supervisor: Bi Jackson MD Albumin/Glob Ratio 1.2 Normal 1.0-2.5 [facility] Comment on above: Performed By: #### C P #### [facility] [address] [place], [place] 5952783 [employer] Supervisor: Bi Jackson MD Alkaline Phos 89 U/L Normal 35-104 [facility] Comment on above: Performed By: #### C P #### [facility] [address] [place], [place] 9468583 [employer] Supervisor: Bi Jackson MD ALT [Catalytic activity/Vol] 11 U/L Normal 5-33 [facility] Comment on above: Performed By: #### C P #### [facility] [address] [place], [place] 1150983 [employer] Supervisor: Bi Jackson MD Anion gap [Moles/Vol] 12 mmol/L Normal 9-17 [facility] Comment on above: Performed By: #### C P #### [facility] [address] [place], [place] 1858883 [employer] Supervisor: Bi Jackson MD AST [Catalytic activity/Vol] 17 U/L Normal <32 [facility] Comment on above: Performed By: #### C P #### [facility] [address] [place], [place] 3063783 [employer] Supervisor: Bi Jackson MD Bilirubin [Mass/Vol] 0.2 mg/dL Low 0.3-1.2 [facility] Comment on above: Performed By: #### C P #### [facility] [address] [place], [place] [phone] [employer] Supervisor: Bi Jackson MD BUN/CRE Ratio 24 High 9-20 [facility] Comment on above: Performed By: #### C P #### [facility] [address] [place], [place] 4093983 [employer] Supervisor: Bi Jackson MD Calcium [Mass/Vol] 9.5 mg/dL Normal 8.6-10.4 [facility] Comment on above: Performed By: #### C P #### [facility] [address] [place] [phone] [employer] Supervisor: Bi Jackson MD Chloride [Moles/Vol] 102 mmol/L Normal 98-107 [facility] Comment on above: Performed By: #### C P #### [facility] [address] [place] [address] [employer] Supervisor: Bi Jackson MD CO2 [Moles/Vol] 23 mmol/L Normal 20-31 [facility] Comment on above: Performed By: #### C P #### [facility] [address] [place] [phone] [employer] Supervisor: Bi Jackson MD Creatinine [Mass/Vol] 0.46 mg/dL Low 0.50-0.90 [facility] Comment on above: Performed By: #### C P #### [facility] [address] [place] [address] [employer] Supervisor: Bi Jackson MD GFR/1.73 sq M.predicted among non-blacks MDRD (S/P/Bld) [Vol rate/Area] mL/min/{1.73_m2} Normal >60 [facility] Comment on above: Result Comment: Effective [...] secretion. Performed By: #### C P #### [facility] [address] [place] [address] [employer] Supervisor: Bi Jackson MD Glucose [Mass/Vol] 99 mg/dL Normal 70-99 [facility] Comment on above: Performed By: #### C P #### [facility] [address] [place] [address] [employer] Supervisor: Bi Jackson MD Potassium [Moles/Vol] 4.4 mmol/L Normal 3.7-5.3 [facility] Comment on above: Performed By: #### C P #### [facility] [address] [place], [place] 6953583 [employer] Supervisor: Bi Jackson MD Protein [Mass/Vol] 8.0 g/dL Normal 6.4-8.3 [facility] Comment on above: Performed By: #### C P #### [facility] [address] [place], [place] 0237083 Pump Servicer Supervisor: Bi Jackson MD Sodium [Moles/Vol] 137 mmol/L Normal 135-144 [facility] Comment on above: Performed By: #### C P #### [facility] [address] [place], [place] [phone] Pump [employer] Supervisor: Bi Jackson MD Urea nitrogen [Mass/Vol] 11 mg/dL Normal 6-20 [facility] Comment on above: Performed By: #### C P #### [facility] [address] [place], [place] [phone] [employer] Supervisor: Bi Jackson MD Comprehensive Metabolic Pane [facility] 04-09-2022 Albumin [Mass/Vol] 4.3 g/dL 3.5 - 5.2 g/dL [facility] Albumin/Globulin [Mass ratio] 1.2 {ratio} 1.0 - 2.5 [facility] ALP (Bld) [Catalytic activity/Vol] 89 U/L 35 - 104 U/L [facility] ALT [Catalytic activity/Vol] 11 U/L 5 - 33 U/L [facility] Anion gap [Moles/Vol] 12 mmol/L 9 - 17 mmol/L [facility] AST [Catalytic activity/Vol] 17 U/L NINF - 32 U/L [facility] Bilirubin [Mass/Vol] 0.2 mg/dL Low 0.3 - 1 .2 mg/dL [facility] Calcium [Mass/Vol] 9.5 mg/dL 8.6 - 10. 4 mg/dL [facility] Chloride [Moles/Vol] 102 mmol/L 98 - 10 7 mmol/L [facility] CO2 [Moles/Vol] 23 mmol/L 20 - 31 mmol/L [facility] Creatinine [Mass/Vol] 0.46 mg/dL Low 0.50 - 0.90 mg/dL [facility] GFR/1.73 sq M.predicted MDRD (S/P/Bld) [Vol rate/Area] - PINF [facility] Comment on above: Effective Dec 16, 2021 [...] 99 mg/dL 70 - 99 mg/dL [facility] Interpretation and review of laboratory results Abnormal [facility] Potassium [Moles/Vol] 4.4 mmol/L 3.7 - 5.3 mmol/L [facility] Protein [Mass/Vol] 8.0 g/dL 6.4 - 8.3 g/dL [facility] Sodium [Moles/Vol] 137 mmol/L 135 - 144 mmol/L [facility] Urea nitrogen (BldV) [Mass/Vol] 11 mg/dL 6 - 20 mg/dL [facility] Urea nitrogen/Creatinine (Bld) [Mass ratio] 24 High 9 - 20 [facility] CBC AUTO DIFFon 03-03-2022 BASO # 0.0 103/ul Normal 0.0-0.1 [facility] Comment on above: Performed By: #### C BC #### [facility] [address] [address] [address] Aakash Covington Basophils/100 WBC (Bld) 0.4 % Normal 0.2-2.0 [facility] Comment on above: Performed By: #### C BC #### [facility] [address] [address] [address] Aakash Covington EO # 0.1 103/ul Normal 0.0-0.7 [facility] Comment on above: Performed By: #### C BC #### [facility] [address] [address] [address] Aakash Covington Eosinophils/100 WBC (Bld) 1.3 % Normal 0.9-7.0 [facility] Comment on above: Performed By: #### C BC #### [facility] [address] [place] [address] Dr. Aakash Covington Erythrocyte distribution width (RBC) [Ratio] 14.1 % Normal 11.0-15.0 [facility] Comment on above: Performed By: #### C BC #### [facility] [address] [place] [address] Dr. Aakash Covington Hematocrit (Bld) [Volume fraction] 35.5 % Critically low 36.0-48.0 [facility] Comment on above: Performed By: #### C BC #### [facility] [address] [place] [address] Dr. Aakash Covington Hemoglobin (Bld) [Mass/Vol] 11.5 g/dL Critically low 12.0-16.0 [facility] Comment on above: Performed By: #### C BC #### [facility] [address] [place] [address] Dr. Aakash Covington IG # 0.03 10e3/ul Normal 0.00-0.03 [facility] Comment on above: Performed By: #### C BC #### [facility] [address] [place] [address] Dr. Aakash Covington IG % 0.3 % Normal 0.0-0.5 [facility] Comment on above: Performed By: #### C BC #### [facility] [address] [place] [address] Dr. Aakash Covington LYMPH # 2.0 103/ul Normal 1.2-3.8 [facility] Comment on above: Performed By: #### C BC #### [facility] [address] [place] [address] Dr. Aakash Covington Lymphocytes/100 WBC (Bld) 19.2 % Critically low 20.5-60.0 [facility] Comment on above: Performed By: #### C BC #### [facility] [address] [place] [address] Dr. Aakash Covington MANUAL DIFF REQ NO Normal [facility] Comment on above: Performed By: #### C BC #### [facility] [address] [place] [address] Dr. Aakash Covington MCH (RBC) [Entitic mass] 27.1 pg Normal 26.7-34.0 [facility] Comment on above: Performed By: #### C BC #### [facility] [address] [place] [address] Dr. Aakash Covington MCHC (RBC) [Mass/Vol] 32.4 g/dL Normal 29.9-35.2 [facility] Comment on above: Performed By: #### C BC #### [facility] [address] [place] [address] Dr. Aakash Covington MCV (RBC) [Entitic vol] 83.7 fL Normal 81.0-99.0 [facility] Comment on above: Performed By: #### C BC #### [facility] [address] [place] [address] Dr. Aakash Covington MONO # 0.8 103/ul Normal 0.3-0.8 [facility] Comment on above: Performed By: #### C BC #### [facility] [address] [place] [address] Dr. Aakash Covington Monocytes/100 WBC (Bld) 7.5 % Normal 1.7-12.0 [facility] Comment on above: Performed By: #### C BC #### [facility] [address] [address] [address] Aakash Covington NEUT # 7.4 103/ul Critically high 1.4-6.5 [facility] Comment on above: Performed By: #### C BC #### [facility] [address] [address] [address] Aakash Covington Neutrophils/100 WBC (Bld) 71.3 % Normal 43.0-75.0 [facility] Comment on above: Performed By: #### C BC #### [facility] [address] [place] [address] Dr. Aakash Covington Platelet mean volume (Bld) [Entitic vol] 10.3 fL Normal 9.5-13.5 [facility] Comment on above: Performed By: #### C BC #### [facility] [address] [place] [address] Dr. Aakash Covington PLT 298 103/ul Normal 150-450 [facility] Comment on above: Performed By: #### C BC #### [facility] [address] [place] [address] Dr. Aakash Covington RBC 4.24 106/ul Normal 4.20-5.40 [facility] Comment on above: Performed By: #### C BC #### [facility] [address] [place] [address] Dr. Aakash Covington WBC 10.3 103/ul Normal 4.0-11.0 [facility] Comment on above: Performed By: #### C BC #### [facility] [address] [place] [address] Dr. Aakash Covington MONOon 03-03-2022 Monocytes (Bld) [#/Vol] Negative Normal NEGATIVE [facility] Comment on above: Performed By: #### M MARU #### [facility] [address] [place] [address] Dr. Aakash Covington PROF 14(COMP METB)on 022 Albumin [Mass/Vol] 3.5 g/dL Normal 3.4-5.0 [facility] Comment on above: Performed By: #### C MP ####[facility] [address] [address]Dr. Aakash Covington Albumin/Globulin [Mass ratio] 0.9 {ratio} Normal [facility] Comment on above: Performed By: #### C MP ####[facility] [address] [id number]. Aakash Adrai ALP [Catalytic activity/Vol] 77 U/L Normal 46-116 [facility] Comment on above: Performed By: #### C MP ####[facility] [address] [place], [place] [address]Dr. Aakash Adria ALT [Catalytic activity/Vol] 15 U/L Normal 14-59 [facility] Comment on above: Performed By: #### C MP ####[facility] [address] [place], [place] [address]Dr. Lindysilvia Adria Anion gap [Moles/Vol] 4.9 mmol/L Normal [facility] Comment on above: Performed By: #### C MP ####[facility] [address] [place], [place] [address]Dr. Aakash Adria AST [Catalytic activity/Vol] 20 U/L Normal 15-37 [facility] Comment on above: Performed By: #### C MP ####[facility] [address] [place], [place] [address]Dr. Aakash Adria Bilirubin [Mass/Vol] 0.2 mg/dL Normal 0.2-1.0 [facility] Comment on above: Performed By: #### C MP ####[facility] [address] [place], [place] [address]Dr. Lindysilvia Covington Calcium [Mass/Vol] 8.8 mg/dL Normal 8.5-10.1 [facility] Comment on above: Performed By: #### C MP ####[facility] [address] [place], [place] [address]Dr. Aakash Covington Chloride [Moles/Vol] 100 mmol/L Normal 98-107 [facility] Comment on above: Performed By: #### C MP ####[facility] [address] [address]Dr. Aakash Covington CO2 [Moles/Vol] 32.9 mmol/L Critically high 21.0-32.0 [facility] Comment on above: Performed By: #### C MP ####[facility] [address] [place], [place] [address]Dr. Aakash Covington Creatinine [Mass/Vol] 0.54 mg/dL Critically low 0.55-1.02 [facility] Comment on above: Performed By: #### C MP ####[facility] [address] [place], [place] [address]Dr. Aakash Covington EGFR-AF NIUEAN >60 Normal >=60 [facility] Comment on above: Performed By: #### C MP ####[facility] [address] [place], [place] [address]Dr. Aakash Covington EGFR-NON AF NIUEAN >60 Normal >=60 [facility] Comment on above: Performed By: #### C MP ####[facility] [address] [place], [place] [address]Dr. Aakash Covington Globulin (S) [Mass/Vol] 3.8 g/dL Normal [facility] Comment on above: Performed By: #### C MP ####[facility] [address] [place], [place] [address]Dr. Aakash Covington Glucose [Mass/Vol] 101 mg/dL Normal 74-106 [facility] Comment on above: Performed By: #### C MP ####[facility] [address] [place], [place] [address]Dr. Aakash Covington Potassium [Moles/Vol] 3.8 mmol/L Normal 3.5-5.1 [facility] Comment on above: Performed By: #### C MP ####[facility] [address] [place], [place] [address]Dr. Aakash Covington Protein [Mass/Vol] 7.3 g/dL Normal 6.4-8.2 [facility] Comment on above: Performed By: #### C MP ####[facility] [address] [place], [place] [address]DrManish Covington Sodium [Moles/Vol] 134 mmol/L Critically low 136-145 [facility] Comment on above: Performed By: #### C MP ####[facility] [address] [place], [place] [address]Dr. Aakash Covington Urea nitrogen [Mass/Vol] 15.0 mg/dL Normal 7.0-18.0 [facility] Comment on above: Performed By: #### C MP ####[facility] [address] [place], [place] [address]OkManish Covington Urea nitrogen/Creatinine [Mass ratio] 27.8 mg/mg Normal [facility] Comment on above: Performed By: #### C MP ####[facility] [address] [place], [place] [address]VzDr. Aakash Covington STREPT SCREENon 03-03-2022 STREP SCREEN A Positive Abnormal NEGATIVE [facility] Comment on above: Performed By: #### S SCRN #### [facility] [address] [place], [place] [address] Dr. Aakash Covington XR NECK SOFT TISSUEon [...] by: MANISH LEUNG Date: 2022-03-03 04:15 Normal [facility] HIV Ag/Abon 03-02-2022 HIV Ag/Ab Non-Reactive Normal NR [facility] Comment on above: Result Comment: No l aboratory evidence of HIV infection. If acute HIV infection is suspected, consider testing for HIV-1 RNA. Performed By: #### C BC, BMP #### [facility] [address] [place] [address] Pump Servicer Supervisor: Bi Jackson MD #### HIVCMB, PHEP #### [facility] [address] [place] [address] Pump Servicer Supervisor: Vamshi Acosta MD Basic Metabolic Panelon 02-13 Anion gap [Moles/Vol] 7 mmol/L Low 9 - 17 mmol/L [facility] Calcium [Mass/Vol] 9.1 mg/dL 8.6 - 10. 4 mg/dL [facility] Chloride [Moles/Vol] 100 mmol/L 98 - 10 7 mmol/L [facility] CO2 [Moles/Vol] 29 mmol/L 20 - 31 mmol/L [facility] Creatinine [Mass/Vol] 0.59 mg/dL 0.50 - 0.90 mg/dL [facility] GFR/1.73 sq M.predicted MDRD (S/P/Bld) [Vol rate/Area] - PINF [facility] Comment on above: Effective Dec 16, 2021 [...] mg/dL High 70 - 99 mg/dL [facility] Interpretation and review of laboratory results Abnormal [facility] Potassium [Moles/Vol] 4.1 mmol/L 3.7 - 5.3 mmol/L [facility] Sodium [Moles/Vol] 136 mmol/L 135 - 144 mmol/L [facility] Urea nitrogen (BldV) [Mass/Vol] 16 mg/dL 6 - 20 mg/dL [facility] Urea nitrogen/Creatinine (Bld) [Mass ratio] 27 High 9 - 20 [facility] Basic Metabolic Profon 02-26 Anion gap [Moles/Vol] 7 mmol/L Low 9-17 [facility] Comment on above: Performed By: #### C BC, BMP #### [facility] [address] [place], [place] [phone] Pump Serv[employer] Supervisor: Bi Jackson MD #### HIVCMB, PHEP #### [address] [address] Pump Servicer Supervisor: Vamshi Acosta MD BUN/CRE Ratio 27 High 9-20 [facility] Comment on above: Performed By: #### C BC, BMP #### [facility] [address] [place] [address] Dr. [place], [place] [phone] Pump Serv[employer] Supervisor: Bi Jackson MD #### HIVCMB, PHEP #### [address] [address] Pump [employer] Supervisor: Vamshi Acosta MD Calcium [Mass/Vol] 9.1 mg/dL Normal 8.6-10.4 [facility] Comment on above: Performed By: #### C BC, BMP #### [address] [place] [phone] ( Pump Servicer Supervisor: Bi Jackson MD #### HIVCMB, PHEP #### [address] [address] Pump Serv[employer] Supervisor: Vamshi Acosta MD Chloride [Moles/Vol] 100 mmol/L Normal 98-107 [facility] Comment on above: Performed By: #### C BC, BMP #### [facility] [address] [place] [address] Dr. [place] [phone] Pump [employer] Supervisor: Bi Jackson MD #### HIVCMB, PHEP #### [address] [address] Pump Serv[employer] Supervisor: Vamshi Acosta MD CO2 [Moles/Vol] 29 mmol/L Normal 20-31 [facility] Comment on above: Performed By: #### C BC, BMP #### [facility] [address] [place], [place] [phone] Pump Serv[employer] Supervisor: Bi Jackson MD #### HIVCMB, PHEP #### [facility] [employer] [address] [place], [place] [phone] Pump Servicer Supervisor: Vamshi Acosta MD Creatinine [Mass/Vol] 0.59 mg/dL Normal 0.50-0.90 [facility] Comment on above: Performed By: #### C BC, BMP #### [facility] [address] [place] [address] Pump Serv[employer] Supervisor: Bi Jackson MD #### HIVCMB, PHEP #### [facility] [address] [place], [place] [phone] Pump Servicer Supervisor: Vamshi Acosta MD GFR/1.73 sq M.predicted among non-blacks MDRD (S/P/Bld) [Vol rate/Area] mL/min/{1.73_m2} Normal >60 [facility] Comment on above: Result Comment: Effective [...] Performed By: #### C BC, BMP #### [facility] [address] [place] [address] [place] [address] Pump Serv[employer] Supervisor: Bi Jackson MD #### HIVCMB, PHEP #### [facility] [address] [place], [place] [phone] Pump Servicer Supervisor: Vamshi Acosta MD Glucose [Mass/Vol] 104 mg/dL High 70-99 [facility] Comment on above: Performed By: #### C BC, BMP #### [facility] [address] [place] [address] Pump Servicer Supervisor: Bi Jackson MD #### HIVCMB, PHEP #### [address] [place], [place] [phone] Pump Servicer Supervisor: Vamshi Acosta MD Potassium [Moles/Vol] 4.1 mmol/L Normal 3.7-5.3 [facility] Comment on above: Performed By: #### C BC, BMP #### [facility] [address] [place], [place] [phone] Pump Servicer Supervisor: Bi Jackson MD #### HIVCMB, PHEP #### [address] [place], [place] [phone] Pump Servicer Supervisor: Vamshi Acosta MD Sodium [Moles/Vol] 136 mmol/L Normal 135-144 [facility] Comment on above: Performed By: #### C BC, BMP #### [facility] [address] [place] [address] Dr. [place], [place] [phone] Pump [employer] Supervisor: Bi Jackson MD #### HIVCMB, PHEP #### [address] [place], [place] 3363308 Pump Servicer Supervisor: Vamshi Acosta MD Urea nitrogen [Mass/Vol] 16 mg/dL Normal 6-20 [facility] Comment on above: Performed By: #### C BC, BMP #### [facility] [address] [place] [address] [place], [place] [phone] Pump [employer] Supervisor: Bi Jackson MD #### HIVCMB, PHEP #### [address] [address] Pump Serv[employer] Supervisor: Vamshi Acosta MD CBCon 02-26-2022 Erythrocyte distribution width (RBC) [Ratio] 14.6 % High 11.8-14.4 [facility] Comment on above: Performed By: #### C BC, BMP #### [facility] [address] [place] [address] Dr. [place], [place] [phone] Pump [employer] Supervisor: Bi Jackson MD #### HIVCMB, PHEP #### [address] [place], [place] [phone] Pump [employer] Supervisor: Vamshi Acosta MD Hematocrit (Bld) [Volume fraction] 38.4 % Normal 36.3-47.1 [facility] Comment on above: Performed By: #### C BC, BMP #### [address] [place] [phone] Pump [employer] Supervisor: Bi Jackson MD #### HIVCMB, PHEP #### [address] [phone] [employer] Supervisor: Vamshi Acosta MD Hemoglobin (Bld) [Mass/Vol] 11.8 g/dL Low 11.9-15.1 [facility] Comment on above: Performed By: #### C BC, BMP #### [address] [place] [phone] Pump Serv[employer] Supervisor: Bi Jackson MD #### HIVCMB, PHEP #### [address] [phone] Pump Serv[employer] Supervisor: Vamshi Acosta MD MCH (RBC) [Entitic mass] 27.1 pg Normal 25.2-33.5 [facility] Comment on above: Performed By: #### C BC, BMP #### [address] [place] [phone] Pump [employer] Supervisor: Bi Jackson MD #### HIVCMB, PHEP #### [address] [phone] Pump [employer] Supervisor: Vamshi Acosta MD MCHC (RBC) [Mass/Vol] 30.7 g/dL Normal 28.4-34.8 [facility] Comment on above: Performed By: #### C BC, BMP #### [address] [place] [address] Pump [employer] Supervisor: Bi Jackson MD #### HIVCMB, PHEP #### [address] [place] [address] Pump Serv[employer] Supervisor: Vamshi Acosta MD MCV (RBC) [Entitic vol] 88.3 fL Normal 82.6-102.9 [facility] Comment on above: Performed By: #### C BC, BMP #### [facility] [address] [place] [address] Pump Serv[employer] Supervisor: Bi Jackson MD #### HIVCMB, PHEP #### [address] [phone] [employer] Supervisor: Vamshi Acosta MD NRBC Automated 0.0 per 100 WBC Normal 0.0 [facility] Comment on above: Performed By: #### C BC, BMP #### [facility] [address] [place] [phone] Pump [employer] Supervisor: Bi Jackson MD #### HIVCMB, PHEP #### [address] [phone] [employer] Supervisor: Vamshi Acosta MD Platelet mean volume (Bld) [Entitic vol] 10.5 fL Normal 8.1-13.5 [facility] Comment on above: Performed By: #### C BC, BMP #### [facility] [address] [place] [phone] [employer] Supervisor: Bi Jackson MD #### HIVCMB, PHEP #### [address] [phone] [employer] Supervisor: Vamshi Acosta MD Platelets (Bld) [#/Vol] 271 10*3/uL Normal 138-453 [facility] Comment on above: Performed By: #### C BC, BMP #### [facility] [address] [place] [address] [employer] Supervisor: Bi Jackson MD #### HIVCMB, PHEP #### [facility] [address] [place], [place] [phone] Pump [employer] Supervisor: Vamshi Acosta MD RBC (Bld) [#/Vol] 4.35 10*6/uL Normal 3.95-5.11 [facility] Comment on above: Performed By: #### C BC, BMP #### [facility] [address] [place] [address] Dr. [place] [phone] [employer] Supervisor: Bi Jackson MD #### HIVCMB, PHEP #### [facility] [place], [place] [phone] Pump [employer] Supervisor: Vamshi Acosta MD WBC (Bld) [#/Vol] 6.4 10*3/uL Normal 3.5-11.3 [facility] Comment on above: Performed By: #### C BC, BMP #### [address] [place] [phone] [employer] Supervisor: Bi Jackson MD #### HIVCMB, PHEP #### [address] [address] [place], [place] [phone] [employer] Supervisor: Vamshi Acosta MD Hematocrit (Bld) [Volume fraction] 38.4 % 36.3 - 47.1 % [facility] Hemoglobin (Bld) [Mass/Vol] 11.8 g/dL Low 11.9 - 15.1 g/dL [facility] Interpretation and review of laboratory results Abnormal [facility] MCH (RBC) [Entitic mass] 27.1 pg 25.2 - 33.5 pg [facility] MCHC (RBC) [Mass/Vol] 30.7 g/dL 28.4 - 34.8 g/dL [facility] MCV (RBC) [Entitic vol] 88.3 fL 82.6 - 102.9 fL [facility] NRBC Automated 0.0 0.0 per 100 WBC [facility] Platelet distribution width (Bld) [Ratio] 14.6 % High 11.8 - 14.4 % [facility] Platelet mean volume (Bld) [Entitic vol] 10.5 fL 8.1 - 13.5 fL [facility] Platelets (Bld) [#/Vol] 271 10*3/uL [facility] RBC (Bld) [#/Vol] 4.35 10*6/uL 3.95 - 5.1 1 m/uL [facility] WBC (Bld) [#/Vol] 6.4 10*3/uL [facility] Hepatitis Acute [facility] 02-26 Hep A Ab,IgM Non-Reactive Normal [facility] Comment on above: Performed By: #### C BC, BMP #### [address] [place] [phone] [employer] Supervisor: Bi Jackson MD #### HIVCMB, PHEP #### [address] [phone] [employer] Supervisor: Vamshi Acosta MD Hep B Core Ab,IgM Non-Reactive Normal [facility] Comment on above: Performed By: #### C BC, BMP #### [address] [place] [phone] [employer] Supervisor: Bi Jackson MD #### HIVCMB, PHEP #### [address] [phone] [employer] Supervisor: Vamshi Acosta MD Hep B Surf Ag Non-Reactive Normal [facility] Comment on above: Performed By: #### C BC, BMP #### [address] [place] [address] [employer] Supervisor: Bi Jackson MD #### HIVCMB, PHEP #### [address] [address] [employer] Supervisor: Vamhsi Acosta MD Hep C Ab Non-Reactive Normal [facility] Comment on above: Result Comment: The hepatitis [...] Performed By: #### C BC, BMP #### [facility] [employer] [facility] [address] [place] [address] [employer] Supervisor: Bi Jackson MD #### HIVCMB, PHEP #### [employer] [address] [place] [address] [employer] Supervisor: Vamshi Acosta MD Hepatitis Panel, [facility] HAV IgM IA Qn (S) Non-Reactive NONREACTIVE [facility] Hep B Core Ab, IgM Non-Reactive NONREACTIVE [facility] Hepatitis B Surface Ag Non-Reactive NONREACTIVE [facility] Hepatitis C Ab Non-Reactive NONREACTIVE [facility] Comment on above: The hepatitis C [...] by ordering HCV RNA by PCR. [facility] Urine culture routineOrdered By: Robin Renee on 10-11-2021 Bacteria identified Cx Nom (U) Escherichia coli [facility] Albumin [Mass/volume] in Ser um or PlasmaOrdered By: Robin Renee on 10-08-2021 Albumin [Mass/Vol] 4.7 g/dL 3.2-5.5 [facility] Amphetamine Screen Ql (U)Ord ered By: Robin Renee on 10-08-2021 Amphetamines Ql (U) Positive Negative [facility] Automated erythrocytes count in urine sediment (number/area)Ordered By: Robin Renee on 10-08-2021 RBC Auto (Urine sed) [#/Area] 5-9 [HPF] 0-4 [facility] Automated leukocytes count i n urine sediment (number/area)Ordered By: Robin Renee on 10-08-2021 WBC Auto (Urine sed) [#/Area] 50-100 [HPF] 0-4 [facility] Automated urine hyaline cast s count (number/volume)Ordered By: Robin Renee on 10-08-2021 Hyaline casts Auto (U) [#/Vol] None seen [LPF] 0-1 [facility] Barbiturates [Presence] in U rineOrdered By: Robin Renee on 10-08-2021 Barbiturates Ql (U) Negative Negative [facility] Basophils Auto (Bld) [#/Vol] Ordered By: Robin Renee on 10-08-2021 Basophils (Bld) [#/Vol] 0.0 10*3/uL 0.0-0.2 [facility] Basophils/100 WBC Auto (Bld) Ordered By: Robin Renee on 10-08-2021 Basophils/100 WBC (Bld) 0.4 % . [facility] Benzodiazepines [Presence] i n UrineOrdered By: Robin Renee on 10-08-2021 Benzodiazepines Ql (U) Positive Negative [facility] Bilirubin Test strip Ql (U)O rdered By: Robin Renee on 10-08-2021 Bilirubin Ql (U) Negative Negative [facility] Blood hemoglobin measurement (mass/volume)Ordered By: Robin Renee on 10-08-2021 Hemoglobin (Bld) [Mass/Vol] 13.7 g/dL 11.8-15.4 [facility] Blood leukocytes automated c ount (number/volume)Ordered By: Robin Renee on 10-08-2021 WBC (Bld) [#/Vol] 10.1 10*3/uL 4.5-11.0 [facility] Cannabinoids [Presence] in U rine by Screen methodOrdered By: Robin Renee on 10-08-2021 Cannabinoids Screen Ql (U) Negative Negative [facility] Comment on above: These are unconfirme d results and should not be used for legal purposes. Drug Cut-Off Concentration: AMPH 1000 ng/mL BRITTANY 200 ng/mL ROSA M 200 ng/mL COCM 300 ng/mL OP 300 ng/mL PCP 25 ng/mL THC 20 ng/mL Casts typing in urine sedime nt by light microscopyOrdered By: Robin Renee on 10-08-2021 Casts LM Nom (Urine sed) None seen [LPF] None Seen [facility] Color Auto (U)Ordered By: Adriana Renee on 10-08-2021 Color (U) Dark yellow Yellow [facility] Creatinine and Glomerular fi ltration rate.predicted panel (S/P/Bld)Ordered By: Robin Renee on 10-08-2021 Creatinine [Mass/Vol] 0.90 mg/dL 0.44-1.03 [facility] Eosinophils Auto (Bld) [#/Vo l]Ordered By: Robin Renee on 10-08-2021 Eosinophils (Bld) [#/Vol] 0.0 10*3/uL 0.0-0.45 [facility] Eosinophils/100 WBC Auto (Bl d)Ordered By: Robin Renee on 10-08-2021 Eosinophils/100 WBC (Bld) 0.3 % . [facility] Erythrocyte distribution wid th Auto (RBC) [Ratio]Ordered By: Robin Renee on 10-08-2021 Erythrocyte distribution width (RBC) [Ratio] 14.8 % 11.9-15.3 [facility] Estimated glomerular filtrat ion rate (GFR) non- AmericanOrdered By: Robin Renee on 10-08-2021 GFR/1.73 sq M.predicted among non-blacks MDRD (S/P/Bld) [Vol rate/Area] > 60 mL/Min [facility] Globulin Calc (S) [Mass/Vol] Ordered By: Robin Renee on 10-08-2021 Globulin (S) [Mass/Vol] 3.2 g/dL [facility] HCG ( test) IA.rapi d Ql (U)Ordered By: Robin Renee on 10-08-2021 HCG ( test) Ql (U) Negative [facility] Hematocrit Auto (Bld) [Volum e fraction]Ordered By: Robin Renee on 10-08-2021 Hematocrit (Bld) [Volume fraction] 42.6 % 34.0-46.4 [facility] Ketones Auto test strip (U) [Mass/Vol]Ordered By: Robin Renee on 10-08-2021 Ketones (U) [Mass/Vol] Negative Negative [facility] Laboratory - Drug toxicology Ordered By: Robin Renee on 10-08-2021 Opiates Ql (U) Negative Negative [facility] Laboratory - Hematology and Cell countsOrdered By: Robin Renee on 10-08-2021 Nucleated RBC/100 WBC (Bld) [Ratio] 0.1 % 0-0.5 [facility] Lymphocytes Auto (Bld) [#/Vo l]Ordered By: Robin Renee on 10-08-2021 Lymphocytes (Bld) [#/Vol] 3.3 10*3/uL 1.00-4.8 [facility] Lymphocytes/100 WBC Auto (Bl d)Ordered By: Robin Renee on 10-08-2021 Lymphocytes/100 WBC (Bld) 32.9 % . [facility] MCH Auto (RBC) [Entitic mass ]Ordered By: Robin Renee on 10-08-2021 MCH (RBC) [Entitic mass] 26.4 pg 24.7-34.3 [facility] MCHC Auto (RBC) [Mass/Vol]Or dered By: Robin Renee on 10-08-2021 MCHC (RBC) [Mass/Vol] 32.3 g/dL 32.0-35.0 [facility] MCV Auto (RBC) [Entitic vol] Ordered By: Robin Renee on 10-08-2021 MCV (RBC) [Entitic vol] 81.8 fL 80-100 [facility] Monocytes Auto (Bld) [#/Vol] Ordered By: Robin Renee on 10-08-2021 Monocytes (Bld) [#/Vol] 1.0 10*3/uL 0.0-0.8 [facility] Monocytes/100 WBC Auto (Bld) Ordered By: Robin Renee on 10-08-2021 Monocytes/100 WBC (Bld) 9.6 % . [facility] Neutrophils Auto (Bld) [#/Vo l]Ordered By: Robin Renee on 10-08-2021 Neutrophils (Bld) [#/Vol] 5.7 10*3/uL 1.8-7.7 [facility] Neutrophils/100 WBC Auto (Bl d)Ordered By: Robin Renee on 10-08-2021 Neutrophils/100 WBC (Bld) 56.8 % . [facility] Nitrite Test strip Ql (U)Ord ered By: Robin Renee on 10-08-2021 Nitrite Ql (U) Negative Negative [facility] No Panel InformationOrdered By: Robin Renee on 10-08-2021 Estimated GFR () > 60 mL/Min [facility] Comment on above: GFR estimated refere nce range: According to KDOQI guidelines, <60 ml/min/1.73m2 is sufficient to diagnose a patient with chronic kidney disease. Pharmacy Creatinine Clearance (Chem 74.23 [facility] Phencyclidine Screen Ql (U)O rdered By: Robin Renee on 10-08-2021 Phencyclidine Ql (U) Negative Negative [facility] Platelet mean volume Auto (B ld) [Entitic vol]Ordered By: Robin Renee on 10-08-2021 Platelet mean volume (Bld) [Entitic vol] 8.7 fL 6.3-10.7 [facility] Platelets Auto (Bld) [#/Vol] Ordered By: Robin Renee on 10-08-2021 Platelets (Bld) [#/Vol] 403 10*3/uL 150-450 [facility] Protein Auto test strip (U) [Mass/Vol]Ordered By: Robin Renee on 10-08-2021 Protein (U) [Mass/Vol] 300 mg/dL Negative [facility] Protein [Mass/volume] in Ser um or PlasmaOrdered By: Robin Renee on 10-08-2021 Protein [Mass/Vol] 7.9 g/dL 6.1-7.9 [facility] RBC Auto (Bld) [#/Vol]Ordere d By: Robin Renee on 10-08-2021 RBC (Bld) [#/Vol] 5.21 10*6/uL 3.60-5.00 [facility] Serum or plasma alanine crowe otransferase measurement without P-5'-P (enzymatic activiOrdered By: Robin Renee on 10-08-2021 ALT No additional P-5'-P [Catalytic activity/Vol] 17 U/L 10-60 [facility] Serum or plasma albumin/glob ulin mass ratioOrdered By: Robin Renee on 10-08-2021 Albumin/Globulin [Mass ratio] 1.5 {ratio} [facility] Serum or plasma alkaline gordo sphatase measurement (enzymatic activity/volume)Ordered By: Robin Renee on 10-08-2021 ALP [Catalytic activity/Vol] 61 U/L 32-92 [facility] Serum or plasma aspartate am inotransferase measurement (enzymatic activity/volume)Ordered By: Robin Renee on 10-08-2021 AST [Catalytic activity/Vol] 23 U/L 10-42 [facility] Serum or plasma calcium mable urement (mass/volume)Ordered By: Robin Renee on 10-08-2021 Calcium [Mass/Vol] 9.7 mg/dL 8.2-10.2 [facility] Serum or plasma chloride aravind surement (moles/volume)Ordered By: Robin Renee on 10-08-2021 Chloride [Moles/Vol] 105 mmol/L 95-114 [facility] Serum or plasma glucose mable urement (mass/volume)Ordered By: Robin Renee on 10-08-2021 Glucose [Mass/Vol] 119 mg/dL 70-100 [facility] Comment on above: ADA recommended refe rence range Random Glucose Reference Range is dependent on time and content of last meal. Glucose of more than 200 mg/dL in a nonstressed, ambulatory subject supports the diagnosis of Diabetes Mellitus. Serum or plasma potassium me asurement (moles/volume)Ordered By: Robin Renee on 10-08-2021 Potassium [Moles/Vol] 3.7 mmol/L 3.5-5.1 [facility] Serum or plasma sodium measu rement (moles/volume)Ordered By: Robin Renee on 10-08-2021 Sodium [Moles/Vol] 141 mmol/L 136-146 [facility] Serum or plasma total biliru bin measurement (mass/volume)Ordered By: Robin Renee on 10-08-2021 Bilirubin [Mass/Vol] 0.8 mg/dL 0.3-1.2 [facility] Serum or plasma total carbon dioxide measurement (moles/volume)Ordered By: Robin Renee on 10-08-2021 CO2 [Moles/Vol] 25.8 mmol/L 22.0-30.[address] [facility] Serum or plasma urea nitroge n measurement (mass/volume)Ordered By: Robin Renee on 10-08-2021 Urea nitrogen [Mass/Vol] 20 mg/dL 12-06 [facility] Specific gravity Auto test s trip (U) [Rel density]Ordered By: Robin Renee on 10-08-2021 Specific gravity (U) [Rel density] 1.025 1.001-1.030 [facility] Squamous epithelial cells de tection in urine sediment by light microscopyOrdered By: Robin Renee on 10-08-2021 Epithelial cells.squamous LM Ql (Urine sed) 0-1 [HPF] 0-2 [facility] Urine bacteria detection by automated methodOrdered By: Robin Renee on 10-08-2021 Bacteria Auto Ql (U) 4+ None Seen [facility] Urine clarity by refractomet ry automatedOrdered By: Robin Renee on 10-08-2021 Clarity Refractometry automated (U) Cloudy Clear [facility] Urine cocaine detectionOrder ed By: Robin Renee on 10-08-2021 Cocaine Ql (U) Negative Negative [facility] Urine glucose measurement by automated test strip (mass/volume)Ordered By: Robin Renee on 10-08-2021 Glucose Auto test strip (U) [Mass/Vol] Normal mg/dL Normal [facility] Urine hemoglobin detection b y automated test stripOrdered By: Robin Renee on 10-08-2021 Hemoglobin Auto test strip Ql (U) Trace Negative [facility] Urine leukocyte esterase det ection by automated test stripOrdered By: Robin Renee on 10-08-2021 Leukocyte esterase Auto test strip Ql (U) 2+ Negative [facility] Urobilinogen Auto test strip (U) [Mass/Vol]Ordered By: Robin Renee on 10-08-2021 Urobilinogen (U) [Mass/Vol] Normal mg/dL Normal [facility] pH Auto test strip (U)Ordere d By: Robin Renee on 10-08-2021 pH (U) 6.0 [pH] 5.0-9.0 [facility] Progress Noteson 09-17-2021 Sheriff Detective Authentication Interface Message Text EMERGENCY TRIAGE, TREAT AND TRANSPORT (ET3) DOCUMENTATION OF TELEHEALTH VISIT Date / Time: 09/16/20212031 Name: Chiquis Estes : 1990 SSN: [id number] EMS Agency: [facility] [] Verbal consent obtained [] Implied [...] Completed by: Suha Brandt MD Normal [facility] Covid-19 PCR (CVDTB)on 08-14 SARS-CoV-2 (COVID-19) RNA LYUBOV+probe Ql (Unsp spec) Detected Critically abnormal NOT DETECTED [facility] Comment on above: Result Comment: This test is not yet approved or cleared by the [place] FDA. When there are no FDA-approved or cleared tests available, and other criteria are met, FDA can make tests available under an emergency access mechanism called an Emergency Use Authorization (EUA). The EUA for this test is supported by the [employer] of Health and Human Service's (HHS's) declaration [...] used). Performed By: #### C VDTBH #### [facility] [address] [address] [address] Aakash Covington GROUP A STREP CULTUREon 08-14 S. pyogenes Ag Ql (Unsp spec) Culture Observations: NEGATIVE FOR GROUP A STREPTOCOCCUS. Normal [facility] Comment on above: Performed By: #### G RASTCX, SSCRN ####[facility] [address] [address]Dr. Aakash Covington INFLUENZA A AND B AGon 08-25 INFLUANEGH SEE BELOW Normal [facility] Comment on above: Result Comment: Nega tive for Flu A protein angiten. Infection due to Flu A cannot be ruled out. Flu A angiten in the sample may be below the detection limit of the test. Performed By: #### I NFLUAB #### [facility] [address] [place] [address] Dr. Aakash Covington INFLUBNEGH SEE BELOW Normal [facility] Comment on above: Result Comment: Nega tive for Flu B protein antigen. Infection due to Flu B cannot be ruled out. Flu B antigen in the sample may be below the detection limit of the test. Performed By: #### I NFLUAB #### [facility] [address] [place] [address] Dr. Aakash Covington INFLUENZA A AG Negative Normal NEGATIVE SEE COMMENT [facility] Comment on above: Performed By: #### I NFLUAB #### [facility] [address] [place] [address] Dr. Aakash Covington INFLUENZA B AG Negative Normal NEGATIVE SEE COMMENT [facility] Comment on above: Performed By: #### I NFLUAB #### [facility] [address] [place] [address] Dr. Aakash Covington INTERNAL CONTROLS Within Normal Limits Normal Within Normal Limits [facility] Comment on above: Performed By: #### I NFLUAB #### [facility] [address] [place] [address] Dr. Aakash Covington STREPT SCREENon 08-25-2021 STREP SCREEN A Negative Normal NEGATIVE [facility] Comment on above: Performed By: #### G PENNY, SSCRN ####[facility] [address] [address]Dr. Aakash Covington CBC AUTO DIFFon 05-24-2021 BASO # 0.1 103/ul Normal 0.0-0.1 [facility] Comment on above: Performed By: #### C BC ####[facility] [address] [place], [place] [address]Dr. Aakash Covington Basophils/100 WBC (Bld) 0.6 % Normal 0.2-2.0 [facility] Comment on above: Performed By: #### C BC ####[facility] [address] [place], [place] [address]Dr. Aakash Covington EO # 0.0 103/ul Normal 0.0-0.7 [facility] Comment on above: Performed By: #### C BC ####[facility] [address] [place], [place] [address]Dr. Aakash Covington Eosinophils/100 WBC (Bld) 0.5 % Critically low 0.9-7.0 [facility] Comment on above: Performed By: #### C BC ####[facility] [address] [place], [place] [address]Dr. Aakash Covington Erythrocyte distribution width (RBC) [Ratio] 16.3 % Critically high 11.0-15.0 [facility] Comment on above: Performed By: #### C BC ####[facility] [address] [place], [place] [address]Dr. Aakash Covington Hematocrit (Bld) [Volume fraction] 40.7 % Normal 36.0-48.0 [facility] Comment on above: Performed By: #### C BC ####[facility] [address] [place], [place] [address]Dr. Aakash Covington Hemoglobin (Bld) [Mass/Vol] 12.9 g/dL Normal 12.0-16.0 [facility] Comment on above: Performed By: #### C BC ####[facility] [address] [id number][address] Aakash Covington IG # 0.03 10e3/ul Normal 0.00-0.03 [facility] Comment on above: Performed By: #### C BC ####[facility] [address] [id number][address] Aakash Covington IG % 0.3 % Normal 0.0-0.5 [facility] Comment on above: Performed By: #### C BC ####[facility] [address] [address]Dr. Aakash Adria LYMPH # 3.1 103/ul Normal 1.2-3.8 [facility] Comment on above: Performed By: #### C BC ####[facility] [address] [address]Dr. Aakash Covington Lymphocytes/100 WBC (Bld) 34.9 % Normal 20.5-60.0 [facility] Comment on above: Performed By: #### C BC ####[facility] [address] [address]Dr. Lindysilvia Covington MANUAL DIFF REQ NO Normal [facility] Comment on above: Performed By: #### C BC ####[facility] [address] [address]Dr. Aakash Covington MCH (RBC) [Entitic mass] 27.4 pg Normal 26.7-34.0 [facility] Comment on above: Performed By: #### C BC ####[facility] [address] [address]Dr. Aakash Covington MCHC (RBC) [Mass/Vol] 31.7 g/dL Normal 29.9-35.2 [facility] Comment on above: Performed By: #### C BC ####[facility] [address] [address]Dr. Aakash Adria MCV (RBC) [Entitic vol] 86.6 fL Normal 81.0-99.0 [facility] Comment on above: Performed By: #### C BC ####[facility] [address] [id number][address] Aakash Covington MONO # 0.5 103/ul Normal 0.3-0.8 [facility] Comment on above: Performed By: #### C BC ####[facility] [address] [id number][address] Aakash Covington Monocytes/100 WBC (Bld) 5.9 % Normal 1.7-12.0 [facility] Comment on above: Performed By: #### C BC ####[facility] [address] [id number]. Aakash Covington NEUT # 5.1 103/ul Normal 1.4-6.5 [facility] Comment on above: Performed By: #### C BC ####[facility] [address] [address]Dr. Aakash Covington Neutrophils/100 WBC (Bld) 57.8 % Normal 43.0-75.0 [facility] Comment on above: Performed By: #### C BC ####[facility] [address] [id number][address] Aakash Covington Platelet mean volume (Bld) [Entitic vol] 9.4 fL Critically low 9.5-13.5 [facility] Comment on above: Performed By: #### C BC ####[facility] [address] [id number]. Aakash Covington PLT 504 103/ul Critically high 150-450 [facility] Comment on above: Performed By: #### C BC ####[facility] [address] [id number]. Aakash Covington RBC 4.70 106/ul Normal 4.20-5.40 [facility] Comment on above: Performed By: #### C BC ####[facility] [address] [id number]. Aakash Covington WBC 8.8 103/ul Normal 4.0-11.0 [facility] Comment on above: Performed By: #### C BC ####[facility] [address] [id number]. Aakash Covington DRUG SCREEN RAPID (URINE)on 05-24-2021 AMP Negative Normal NEGATIVE [facility] Comment on above: Performed By: #### E RUR, DRUGRPD, UMICRO #### [facility] [address] [place] [address] Dr. Aakash Covington BAR Negative Normal NEGATIVE [facility] Comment on above: Performed By: #### E RUR, DRUGRPD, UMICRO #### [facility] [address] [place] [address] Dr. Aakash Covington BUP Negative Normal NEGATIVE [facility] Comment on above: Performed By: #### E RUR, DRUGRPD, UMICRO #### [facility] [address] [place] [address] Dr. Aakash Covington BZO Negative Normal NEGATIVE [facility] Comment on above: Performed By: #### E RUR, DRUGRPD, UMICRO #### [facility] [address] [place] [address] Dr. Aakash Covington PAVEL Negative Normal NEGATIVE [facility] Comment on above: Performed By: #### E RUR, DRUGRPD, UMICRO #### [facility] [address] [place] [address] Dr. Aakash Covington CUT-OFFS SEE BELOW Normal [facility] Comment on above: Result Comment: [...] By: #### E RUR, DRUGRPD, UMICRO #### [facility] [address] [place] [address] Dr. Aakash Covington DRUG CUT HEADER DRUG CLASS TEST SYSTEM CUT-OFF CONCENTRATIONS ARE FOLLOWS: Normal [facility] Comment on above: Performed By: #### E RUR, DRUGRPD, UMICRO #### [facility] [address] [place] [address] Dr. Aakash Covington mAMP Negative Normal NEGATIVE [facility] Comment on above: Performed By: #### E RUR, DRUGRPD, UMICRO #### [facility] [address] [place] [address] Dr. Aakash Covington MTD Negative Normal NEGATIVE [facility] Comment on above: Performed By: #### E RUR, DRUGRPD, UMICRO #### [facility] [address] [place] [address] Dr. Aakash Covington OPI Negative Normal NEGATIVE [facility] Comment on above: Performed By: #### E RUR, DRUGRPD, UMICRO #### [facility] [address] [place] [address] Dr. Aakash Covington OXY Negative Normal NEGATIVE [facility] Comment on above: Performed By: #### E RUR, DRUGRPD, UMICRO #### [facility] [address] [place] [address] Dr. Aakash Covington PCP Negative Normal NEGATIVE [facility] Comment on above: Performed By: #### E RUR, DRUGRPD, UMICRO #### [facility] [address] [place] [address] Dr. Aakash Covington PPX Negative Normal NEGATIVE [facility] Comment on above: Performed By: #### E RUR, DRUGRPD, UMICRO #### [facility] [address] [place] [address] Dr. Aakash Covington TCA Negative Normal NEGATIVE [facility] Comment on above: Performed By: #### E RUR, DRUGRPD, UMICRO #### [facility] [address] [place] [address] Dr. Aakash Covington THC Negative Normal NEGATIVE [facility] Comment on above: Performed By: #### E RUR, DRUGRPD, UMICRO #### [facility] [facility] [address] [address] [address] Aakash GUZMAN URINE PROFILEon 2 Bilirubin Ql (U) Negative Normal NEGATIVE The [facility] Comment on above: Performed By: #### E RUR, DRUGRPD, UMICRO #### [facility] [address] [place] [address] Dr. Aakash Covington Clarity (U) CLEAR Normal CLEAR The [facility] Comment on above: Performed By: #### E RUR, DRUGRPD, UMICRO #### [facility] [address] [place] [address] Dr. Aakash Covington Color (U) YELLOW Normal YELLOW [facility] Comment on above: Performed By: #### E RUR, DRUGRPD, UMICRO #### [facility] [address] [place] [address] Dr. Aakash BOWEN A micrscopic examination will be performed if indicated. Normal The [facility] Comment on above: Performed By: #### E RUR, DRUGRPD, UMICRO #### [facility] [address] [place] [address] Dr. Aakash Covington Glucose Ql (U) Negative Normal NEGATIVE The [facility] Comment on above: Performed By: #### E RUR, DRUGRPD, UMICRO #### [facility] [address] [place] [address] Dr. Aakash Covington Hemoglobin Ql (U) Negative Normal NEGATIVE The [facility] Comment on above: Performed By: #### E RUR, DRUGRPD, UMICRO #### [facility] [address] [place] [address] Dr. Aakash Covington Ketones Ql (U) Negative Normal NEGATIVE The [facility] Comment on above: Performed By: #### E RUR, DRUGRPD, UMICRO #### [facility] [address] [place] [address] Dr. Aakash Covington LEUKOCYTES Negative Normal NEGATIVE [facility] Comment on above: Performed By: #### E RUR, DRUGRPD, UMICRO #### [facility] [address] [address] [address] Aakash Covington Nitrite Ql (U) Negative Normal NEGATIVE The [facility] Comment on above: Performed By: #### E RUR DRUGRPD, UMICRO #### [facility] [address] [address] [address] Aakash Covington pH (U) 5.5 [pH] Normal 5-9 The [facility] Comment on above: Performed By: #### E RUR DRUGRPZack, UMICRO #### [facility] [address] [address] [address] Aakash Covington Protein (U) [Mass/Vol] 100 mg/dL Abnormal NEGATIVE/ TRACE The [facility] Comment on above: Performed By: #### E RUR DRUGRPD, UMICRO #### [facility] [address] [place] [address] Dr. Aakash Covington SPEC GRAVITY >=1.030 Abnormal 1.005-<=1.025 The [facility] Comment on above: Performed By: #### E PAT DRUGRPZack, UMICRO #### [facility] [address] [address] [address] Aakash Covington UR MICRO IND INDICATED Normal The [facility] Comment on above: Performed By: #### E RUR, DRUGRPD, UMICRO #### [facility] [address] [place] [address] Dr. Aakash Covington Urobilinogen Qn (U) 0.2 {Marco'U}/dL Normal 0.2 - 1. 0 [facility] Comment on above: Performed By: #### E RUR DRUGRPZack, UMICRO #### [facility] [address] [address] [address] Aakash Covington PREG HCG QUALon 05-24-2021 , QUAL Negative Normal NEGATIVE The [facility] Comment on above: Performed By: #### P REG ####[facility] [id number] [address]Dr. Aakash Covington PROF CHEM 8 (BAS METB)on Anion gap [Moles/Vol] 10.8 mmol/L Normal Th [facility] Comment on above: Performed By: #### B MP #### [facility] [address] [address] [address] Aakash Covington Calcium [Mass/Vol] 8.6 mg/dL Normal 8.4-10.2 [facility] Comment on above: Performed By: #### B MP #### [facility] [address] [address] [address] Aakash Covington Chloride [Moles/Vol] 102 mmol/L Normal 98-107 [facility] Comment on above: Performed By: #### B MP #### [facility] [address] [place] [address] Dr. Aakash Covington CO2 [Moles/Vol] 26.1 mmol/L Normal 22.0-30.0 [facility] Comment on above: Performed By: #### B MP #### [facility] [address] [address] [address] Aakash Covington Creatinine [Mass/Vol] 0.83 mg/dL Normal 0.52-1.04 [facility] Comment on above: Performed By: #### B MP #### [facility] [address] [place] [address] Dr. Aakash Covington EGFR-AF NIUEAN >60 Normal >=60 [facility] Comment on above: Performed By: #### B MP #### [facility] [address] [address] [address] Aakash Covington EGFR-NON AF NIUEAN >60 Normal >=60 [facility] Comment on above: Performed By: #### B MP #### [facility] [address] [address] [address] Aakash Covington Glucose [Mass/Vol] 153 mg/dL Critically high 74-[address] [facility] Comment on above: Performed By: #### B MP #### [facility] [address] [place] [address] Dr. Aakash Covington Potassium [Moles/Vol] 3.9 mmol/L Normal 3.4-5.0 [facility] Comment on above: Performed By: #### B MP #### [facility] [address] [place] [address] Dr. Aakash Covington Sodium [Moles/Vol] 135 mmol/L Critically low 137-145 Th [facility] Comment on above: Performed By: #### B MP #### [facility] [address] [place] [address] Dr. Aakash Covington Urea nitrogen [Mass/Vol] 16.0 mg/dL Normal 7.0-17.0 [facility] Comment on above: Performed By: #### B MP #### [facility] [address] [place] [address] Dr. Aakash Covington Urea nitrogen/Creatinine [Mass ratio] 19.3 mg/mg Normal [facility] Comment on above: Performed By: #### B MP #### [facility] [address] [place] [address] Dr. Aakash Covington URINE MICROSCOPIC ONLYon BACTERIA TRACE Abnormal NONE SEEN [facility] Comment on above: Performed By: #### E RUR, DRUGRPD, UMICRO #### [facility] [address] [place] [address] Dr. Aakash Covington Bacteria identified Cx Nom (U) NOT INDICATED Normal [facility] Comment on above: Performed By: #### E RUR, DRUGRPD, UMICRO #### [facility] [address] [place] [address] Dr. Aakash Covington CAST SEEN Abnormal NONE SEEN [facility] Comment on above: Performed By: #### E RUR, DRUGRPD, UMICRO #### [facility] [address] [place] [address] Dr. Aakash Covington Crystals LM Nom (Urine sed) NONE SEEN Normal NONE SEEN [facility] Comment on above: Performed By: #### E RUR, DRUGRPD, UMICRO #### [facility] [address] [place] [address] Dr. Aakash Covington Epithelial cells LM Ql (Urine sed) MODERATE Abnormal NONE SEEN /RARE [facility] Comment on above: Performed By: #### E RUR, DRUGRPD, UMICRO #### [facility] [address] [address] [address] Aakash Covington HYALINE CAST RARE Normal The [facility] Comment on above: Performed By: #### E RUR, DRUGRPD, UMICRO #### [facility] [address] [id number] Aakash Covingtno MUCOUS TRACE Abnormal NONE SEEN The [facility] Comment on above: Performed By: #### E RUR, DRUGRPD, UMICRO #### [facility] [address] [address] [address] Aakash Covington RBC NONE SEEN Abnormal 0-2 [facility] Comment on above: Performed By: #### E RUR, DRUGRPD, UMICRO #### [facility] [address] [address] [address] Aakash Covington WBC 0-2 Abnormal NONE SEEN [facility] Comment on above: Performed By: #### E RUR, DRUGRPD, UMICRO #### [facility] [address] [address] [address] Aakash Covington Progress Noteson 12-04-2020 Sheriff Detective Authentication Interface Message Text Late entry for 1425, pt given discharge instructions and verbalized an understanding. Normal The [facility] Sheriff Detective Authentication Interface Message Text MOTHER CHILD DEPENDENCY SOCIAL WORK NOTE: A Lyft has been scheduled to transport pt home. Pt expressed appreciation. Marva Echeverria [facility] [phone] Mother Child Dependency Program Normal [facility] Sheriff Detective Authentication Interface Message Text In to discuss point of care with patient. Discharge planning has been coordinated by SW as documented. She is scheduled for an intake at [facility] 12/11/20 at 3:30PM. Family Medicine [...] OB care from Dr. Say Edwards at [facility]. I discussed obtaining medical records so that we may take as best care of her as possible. She declines to fill out a release of records for at this time, stating she does not plan to return to [facility] now that she has been provided a [...] patient that is welcome to return to [facility] for care at any time. Ranjana Miller, DO WIRE DRAWING DIE MAKER PGY-3 Normal The [facility] Sheriff Detective Authentication Interface Message Text MOTHER CHILD DEPENDENCY SOCIAL WORK NOTE: Per pharmacy, pts insurance will not cover her outpatient subutex Rx. Pt states she is not able to afford the cost of the medication. A medication voucher has been completed and forwarded to the pharmacy. Pt aware one medication voucher can be issued in a year period. Marva Echeverria [facility] [phone] Mother Child Dependency Program Normal The [facility] Sheriff Detective Authentication Interface Message Text EFM removed for reactive NST per Dr Miller Normal The [facility] Sheriff Detective Authentication Interface Message Text FM at bedside Normal The [facility] Care Plan Noteon 12-03-2020 Sheriff Detective Authentication Interface Message Text Problem: Routine Care: [...] work to arrange outpt f/u Normal [facility] Sheriff Detective Authentication Interface Message Text Problem: Routine Care: [...] and d/c needs of pt. Normal [facility] Consultson 12-03-2020 Sheriff Detective Authentication Interface Message Text MOTHER CHILD DEPENDENCY SOCIAL WORK NOTE: Met with pt briefly. Pt sleeping and respectfully asked that I return in an hour. Marva DixonManish SOSA, ASSISTANT TENNIS PROFESSIONAL [phone] Mother Child Dependency Program Normal [facility] Progress Noteson 12-03-2020 Sheriff Detective Authentication Interface Message Text MOTHER CHILD DEPENDENCY SOCIAL WORK NOTE: PLAN: Discharge plan pending at this time. Followed up with pt this afternoon to discuss plan. Pt inquiring about discharge transportation home due to family emergency. Pt states her grandmother is ill and she is reconsidering placement at [facility]. Pt aware a Lyft cannot be arranged if leaving AMA. Pt shared that she has contacted [facility]. Pt states she has worked with the agency before for MAT services provided by Cara Mason CNP. Pt would like to resume services here, closer to her home. Left voice mail asking that Ms. Mason contact me to develop MAT/IOP discharge plan. Pt aware I will follow up with her in the morning. Marva SOSA, [facility] [phone] Mother Child Dependency Program Normal [facility] Sheriff Detective Authentication Interface Message Text Pt given GlucoCrush to drink. Pt will call when she has finished drinking. Pt called out that she finished GlucoCrush @ 1025. Pt then called @ 10 minutes later stating she vomited the entire amount she drank. [place] fluid all over floor and in trash [...] with her own OB Dr villanueva. Dr Mensah notified via secure chat. Pt also refusing NST. States she has cramps. FHR doppled. Normal [facility] Sheriff Detective Authentication Interface Message Text Pt is requesting to sleep until @ 10 am then she will start the glucola and agree to IV start for IV FE Normal [facility] Care Plan Noteon 12-02-2020 Sheriff Detective Authentication Interface Message Text Problem: Routine Care: [...] work to arrange outpt f/u Normal [facility] Progress Noteson 12-02-2020 Sheriff Detective Authentication Interface Message Text Pt called out requesting to come off the [facility]. No resident available to [place] tracing. Pt states she wants to come off. Normal The [employer] Authentication Interface Message Text Pt declining NST at this time. Asking if it can be done later Asked pt again about NST. Pt stated not now, I am just so tired. FHR doppled. Normal The [facility] Sheriff Detective Authentication Interface Message Text [facility] Pt seen and examined. 30 year [...] resident's note. Mildred Horta MD Normal [facility] Care Plan Noteon 12-01-2020 Sheriff Detective Authentication Interface Message Text Problem: Routine Care: [...] will be met Outcome: Progressing Normal [facility] Sheriff Detective Authentication Interface Message Text Problem: Routine Care: [...] and d/c needs of pt. Normal [facility] Consultson 12-01-2020 Sheriff Detective Authentication Interface Message Text Pt to be seen tomorrow as SW is covering multiple units and only scheduled until noon today. Tesha GUTIERREZ Weekdays: pgr [phone] or cell [phone] for Mother and Child Dependency Program Weekends: cell [phone] for Inpatient Weekend OB/Peds social worker aide Normal [facility] Progress Noteson 12-01-2020 Sheriff Detective Authentication Interface Message Text To bedside to discuss CBC results with patient. Hgb 8.3 yesterday. Patient report feeling tired but otherwise asymptomatic. Recommended iron supplementation via transfusion. Patient reported that she would be amenable to this plan, however would prefer to have the transfusion tomorrow once she is more stable on subutex. Felicity Tucker MD WIRE DRAWING DIE MAKER PGY-1 Normal [facility] COMPLETE BLOOD COUNTon 11-30 Erythrocyte distribution width (RBC) [Ratio] 16.8 % High 11.5-14.5 The [facility] Comment on above: Performed By: #### C BC ####[facility] [id number] [place], [id number] Hematocrit (Bld) [Volume fraction] 26.0 % Low 36.0-46.0 The [facility] Comment on above: Performed By: #### C BC ####[facility] [id number] [place], [place], Hemoglobin (Bld) [Mass/Vol] 8.3 g/dL Low 12.0-15.0 The [facility] Comment on above: Performed By: #### C BC ####[facility] [id number] [place], [place], MCH (RBC) [Entitic mass] 22.2 pg Low 26.0-34.0 The [facility] Comment on above: Performed By: #### C BC ####[facility] [id number] [place], [place], MCHC (RBC) [Mass/Vol] 31.7 g/dL Low 32.0-35.9 The [facility] Comment on above: Performed By: #### C BC ####[facility] [id number] [place], [place], MCV (RBC) [Entitic vol] 70 fL Low 80-100 The [facility] Comment on above: Performed By: #### C BC ####[facility] [id number] [place], [place], Platelet mean volume (Bld) [Entitic vol] 8.3 fL Normal 7.5-11.2 The [facility] Comment on above: Performed By: #### C BC ####[facility] [id number] [place], [place], Platelets (Bld) [#/Vol] 265 10*3/uL Normal 150-400 The [facility] Comment on above: Performed By: #### C BC ####[facility] [id number] [place], [place], RBC (Bld) [#/Vol] 3.73 10*6/uL Low 4.00-5.20 The [facility] Comment on above: Performed By: #### C BC ####[facility] [id number] [place], [place], WBC (Bld) [#/Vol] 6.7 10*3/uL Normal 4.5-11.5 The [facility] Comment on above: Performed By: #### C BC ####[facility] [id number] [place] [address], FERRITINon 11-30-2020 DOROTHY 4.3 ng/mL Low 10.3-219.0 The [facility] Comment on above: Performed By: #### R UB, DOROTHY, HEP A IGM, HEP A TOT, ANTI-HBS, HCV, HBSAG ####[facility] [id number] [place] [address], HEPATITIS A IGM ANTIBODYon 0 11-30-2020 HEP A IGM Non-Reactive Normal Nonreactive The [facility] Comment on above: Performed By: #### R UB, DOROTHY, HEP A IGM, HEP A TOT, ANTI-HBS, HCV, HBSAG ####[facility] [id number] [place] [address], HEPATITIS A TOTAL ANTIBODYon 11-30-2020 HEP A TOT Reactive Abnormal Nonreactive The [facility] Comment on above: Performed By: #### R UB, DOROTHY, HEP A IGM, HEP A TOT, ANTI-HBS, HCV, HBSAG ####[facility] [id number] [place] [address], HEPATITIS B SURFACE ANTIBODY on 11-30-2020 ANTI-HBS < 3.1 Normal The [facility] Comment on above: Order Comment: Nonre active: Samples < 7.5 mIU/mL Reactive: Samples >/= 10.0 mIU/mL The accepted criteria for immunity to HBV is anti-HBs activity >/= 10 mIU/mL, as defined by the WHO International Reference Preparation. Performed By: #### R UB, DOROTHY, HEP A IGM, HEP A TOT, ANTI-HBS, HCV, HBSAG #### [facility] [address] [place] [address], HEPATITIS B SURFACE ANTIGENo n 11-30-2020 HBSAG Non-Reactive Normal Non-Reactive The [facility] Comment on above: Performed By: #### R UB, DOROTHY, HEP A IGM, HEP A TOT, ANTI-HBS, HCV, HBSAG #### [facility] [address] [place] [address], HEPATITIS C ANTIBODYon 11-30 HCV Non-Reactive Normal Nonreactive The [facility] Comment on above: Performed By: #### R UB, DOROTHY, HEP A IGM, HEP A TOT, ANTI-HBS, HCV, HBSAG ####[facility] [id number] [place], [place], Performed By: #### H CV #### [facility] [address], [place], HIV1 HIV2 AGAB SCRNon 2020 HIV AG-AB SCREEN Non-Reactive Normal Non-Reactive [facility] Comment on above: Order Comment: HIV Information: ???[place] Rev. code 3701.243(E): This information has been [...] #### h iv1 hiv2 agab scrn #### [facility] [address], [place], L AND D Triage Noteon 2020 Sheriff Detective Authentication Interface Message Text Pt took herself off the monitor and is requesting food. Normal [facility] Sheriff Detective Authentication Interface Message Text TRIAGE NOTE 11/30/2020 7:15 AM CC: opoid use disorder HPI: Chiquis Estes is a 30 year old at Unknown [...] staffed with attending Dr. Krystal Malin MD WIRE DRAWING DIE MAKER PGY1 ATTENDING PROGRESS NOTE: I saw this [...] for follow-up Josué Parham, DO Normal [facility] NOVEL CORONAVIRUS (COVID-19) on 11-30-2020 SARS-CoV-2 (COVID-19) RNA LYUBOV+probe Ql (Unsp spec) Not detected Normal Not Detected [facility] Comment on above: Order Comment: This test is intended for use only under Emergency Use Authorization (EUA). This test was developed, and its performance characteristics determined by [employer] which is certified under CLIA as qualified to perform high complexity clinical laboratory testing. Result Comment: This assay was performed using [employer]??? RTPCR technology. Performed By: #### C [id number] #### [facility] [address] [place], [address] Progress Noteson 09-17-2021 Sheriff Detective Authentication Interface Message Text 2006: Lorraine, MD aware of pt COWS score of 11 at this time. Awaiting orders Normal [facility] Sheriff Detective Authentication Interface Message Text 0011: This RN entered triage 1 to fix EFM. Pt standing, fully dressed and requesting to leave AMA. Amira Malin MD aware. 0013: Amira Malin MD at bedside. Normal [facility] Sheriff Detective Authentication Interface Message Text 30 year old , OB History Para Term AB Living 1 0 0 0 0 0 SAB TAB Ectopic Multiple Live Births 0 0 0 0 0 Unknown seen today in Triage # 1 for C/O illegal drug use, requesting detox program Is Chiquis Estes involved in any research studies? No If patient smokes, does she desire information/assista nce to quit? Declined info/assistance EFM applied at 2330. FHR 144 MHR 83 Amira Malin MD aware of patient's arrival and chief complaint. No current facility-administer ed medications on file prior to encounter. No current outpatient medications on file prior to encounter. Rachel San RN Normal [facility] RUBELLAon 11-30-2020 RUB 26.3 IU/mL Normal [facility] Comment on above: Order Comment: Nonre [...] IgG EIA assay. Values obtained with different tennis camp instructor???s assay methods may not be used interchangeably. Performed By: #### R UB, DOROTHY, HEP A IGM, HEP A TOT, ANTI-HBS, HCV, HBSAG #### [facility] [address] [place] [address], [id number] RUBE[employer] INTERPRETATION Reactive Normal [facility] Comment on above: Order Comment: Nonre [...] IgG EIA assay. Values obtained with different tennis camp instructor???s assay methods may not be used interchangeably. Performed By: #### R UB, DOROTHY, HEP A IGM, HEP A TOT, ANTI-HBS, HCV, HBSAG #### [facility] [address], [place], SYPHILIS WITH CONFIRMATIONon 11-30-2020 SYPHILIS TOTAL (IGG/IGM) Non-Reactive Normal Non-Reactive The [facility] Comment on above: Order Comment: No se rologic evidence of syphilis.If recent exposure/early infection is suspected, repeat testing in 2-4 weeks. Performed By: #### s yphilis with confirmation ####[facility] [id number] [place], [place], TOX SCREEN W/CONFIRM - OB/GY Non 11-30-2020 ALCOHOL - TOX W/ CONF Negative Normal Cutoff: 10 [facility] Comment on above: Order Comment: Scree n results are reported as positive (at or above the cutoff) or negative (below the cutoff). The GC/MS testing (if applicable) was developed and its performance characteristics determined by [facility] in a manner consistent with CLIA requirements. This test has not been cleared or approved by the U.S. Food and Drug Administration; however, the FDA has determined that such clearance or approval is not necessary. Performed By: #### o bgyntox #### [facility] [address] [place], [place], AMPH CL Negative Normal Cutoff: 1000 [facility] Comment on above: Order Comment: Scree n results are reported as positive (at or above the cutoff) or negative (below the cutoff). The GC/MS testing (if applicable) was developed and its performance characteristics determined by [facility] in a manner consistent with CLIA requirements. This test has not been cleared or approved by the U.S. Food and Drug Administration; however, the FDA has determined that such clearance or approval is not necessary. Performed By: #### o bgyntox #### [facility] [address] [place] [address], BRITTANY CL Negative Normal Cutoff: 200 [facility] Comment on above: Order Comment: Scree n results are reported as positive (at or above the cutoff) or negative (below the cutoff). The GC/MS testing (if applicable) was developed and its performance characteristics determined by [facility] in a manner consistent with CLIA requirements. This test has not been cleared or approved by the U.S. Food and Drug Administration; however, the FDA has determined that such clearance or approval is not necessary. Performed By: #### o bgyntox #### [facility] [address] [place], [place], BENZO CL Negative Normal Cutoff: 200 [facility] Comment on above: Order Comment: Scree n results are reported as positive (at or above the cutoff) or negative (below the cutoff). The GC/MS testing (if applicable) was developed and its performance characteristics determined by [facility] in a manner consistent with CLIA requirements. This test has not been cleared or approved by the U.S. Food and Drug Administration; however, the FDA has determined that such clearance or approval is not necessary. Performed By: #### o bgyntox #### [facility] [address] [place] [address], COCAINE CL- TOX W/ CONF Negative Normal Cutoff: 300 [facility] Comment on above: Order Comment: Scree n results are reported as positive (at or above the cutoff) or negative (below the cutoff). The GC/MS testing (if applicable) was developed and its performance characteristics determined by [facility] in a manner consistent with CLIA requirements. This test has not been cleared or approved by the U.S. Food and Drug Administration; however, the FDA has determined that such clearance or approval is not necessary. Performed By: #### o bgyntox #### [facility] [address], [place], FENTANYL Positive Abnormal Cutoff: 1 [facility] Comment on above: Order Comment: Scree n results are reported as positive (at or above the cutoff) or negative (below the cutoff). The GC/MS testing (if applicable) was developed and its performance characteristics determined by [facility] in a manner consistent with CLIA requirements. This test has not been cleared or approved by the U.S. Food and Drug Administration; however, the FDA has determined that such clearance or approval is not necessary. Performed By: #### o bgyntox #### S PATHOLOGY LABORATORY [address] [place] [address], METH CL Negative Normal Cutoff: 300 [facility] [...] #### o bgyntox #### S PATHOLOGY LABORATORY [address] [place] [address], OPI CL Negative Normal Cutoff: 300 [facility] [...] #### o bgyntox #### S PATHOLOGY LABORATORY [address] [place] [address], OXYCODONE Negative Normal Cutoff: 100 [facility] Comment on above: Order Comment: Scree n results are reported as positive (at or above the cutoff) or negative (below the cutoff). The GC/MS testing (if applicable) was developed and its performance characteristics determined by [facility] in a manner consistent with CLIA requirements. This test has not been cleared or approved by the U.S. Food and Drug Administration; however, the FDA has determined that such clearance or approval is not necessary. Result Comment: Oxyc odone and metabolites of Oxycodone (Oxymorphone, Noroxycodone, and Noroxymorphone) are measured/detected in this assay method. Performed By: #### o bgyntox #### S PATHOLOGY LABORATORY [address] [place] [address], PCP CL Negative Normal Cutoff: 25 [facility] Comment on above: Order Comment: Scree n results are reported as positive (at or above the cutoff) or negative (below the cutoff). The GC/MS testing (if applicable) was developed and its performance characteristics determined by [facility] in a manner consistent with CLIA requirements. This test has not been cleared or approved by the U.S. Food and Drug Administration; however, the FDA has determined that such clearance or approval is not necessary. Performed By: #### o bgyntox #### [facility] [address] [place] [address], THC CL - TOX W/ CONF Positive Abnormal Cutoff: 50 [facility] Comment on above: Order Comment: Scree n results are reported as positive (at or above the cutoff) or negative (below the cutoff). The GC/MS testing (if applicable) was developed and its performance characteristics determined by [facility] in a manner consistent with CLIA requirements. This test has not been cleared or approved by the U.S. Food and Drug Administration; however, the FDA has determined that such clearance or approval is not necessary. Result Comment: This is a corrected result. Previous result on 11/30/2020 at 1607 EDT was In Process ng/mL Performed By: #### o bgyntox #### [facility] [address] [place] [address], THC CONFIRMATION Positive Abnormal Cutoff: 15 [facility] Comment on above: Order Comment: Scree n results are reported as positive (at or above the cutoff) or negative (below the cutoff). The GC/MS testing (if applicable) was developed and its performance characteristics determined by [facility] in a manner consistent with CLIA requirements. This test has not been cleared or approved by the U.S. Food and Drug Administration; however, the FDA has determined that such clearance or approval is not necessary. Result Comment: The drug analyte detected in this assay, 38-dys-Csccwlg-delta 9-THC, is a metabolite of wcdhy-9-bnsnkzeirdgmuwrwqbqy (THC). Detection of 52-gmg-Vvsynwb-delta 9-THC suggests use of, or exposure to, a product containing THC. This test cannot distinguish between prescribed or non-prescribed forms of THC, nor can it distinguish between active or passive use. The 87-azm-Ytcsnvu-delta 9-THC metabolite may be detected in urine for several weeks. Performed By: #### o bgyntox #### S PATHOLOGY LABORATORY [address], [place], TYPE AND SCREENon 11-30-2020 ABO and Rh group Nom (Bld) Blood group A Rh(D) positive Normal [facility] Comment on above: Performed By: #### T S ####S PATHOLOGY [id number] [place], [place], ABO and Rh group Nom (Bld) No Previous Results Normal [facility] Comment on above: Performed By: #### T S ####[facility] PATH[facility] [id number] [place], [place], ABSC INT Negative Normal [facility] Comment on above: Performed By: #### T S ####S PATHOLOGY [id number] [place], [place], Vital Signs Date Time Vital Sign Value Performing Clinician Aarti jaime 10-08-2021 22:30-0400 Body temperature 98.9 [degF] MD Robin Renee Work Phone: [facility] 10-08-2021 22:30-0400 Diastolic blood pressure 106 mm[Hg] MD Robin Renee Work Phone: [facility] 10-08-2021 22:30-0400 Heart rate 127 /min MD Robin Renee Work Phone: [facility] 10-08-2021 22:30-0400 Respiratory rate 20 /min MD Robin Renee Work Phone: [facility] 10-08-2021 22:30-0400 SaO2% (BldA) [Mass fraction] 96 % MD Robin Renee Work Phone: [facility] 10-08-2021 22:30-0400 Systolic blood pressure 139 mm[Hg] MD Robin Renee Work Phone: [facility] 10-08-2021 17:39-0400 Body height 160.66 cm MD Robin Renee Work Phone: [facility] 10-08-2021 17:39-0400 Body weight 53.97 kg MD Robin Renee Work Phone: [facility] Encounters Encounter Date Encounter Type Care Provider Facility Start: 04-18-2024 ambulatory Facility:[facility] Start: 04-14-2023 End: 04-14-2023 ambulatory Charli Irving Other [facility] Other Start: 04-14-2023 Telephone encounter Charli WALKER [facility] Start: 04-13-2023 End: 04-13-2023 ambulatory Charli Irving Facility:[facility] Start: 03-26-2023 Telephone encounter Noms Provi aislinn Unallocated Work Phone: [facility] Start: 02-27-2023 End: 02-27-2023 ambulatory Charli Irving Facility:[facility] Start: 02-27-2023 End: 02-27-2023 Admission to same day surgery center [facility] Work Phone: [facility] Work Phone: Start: 02-27-2023 End: 02-27-2023 ambulatory Services [facility] Work Phone: [facility] Work Phone: Start: 06-09-2022 End: 06-10-2022 ambulatory [facility] Start: 06-09-2022 End: 06-09-2022 Subsequent hospital visit by physician [facility] Start: 04-09-2022 End: 04-10-2022 ambulatory CHRISTOPHE TOD [facility] Start: 04-09-2022 End: 04-09-2022 Subsequent hospital visit by physician [facility] Start: 03-14-2022 End: 03-14-[address] DOCTOR WHITEHEAD Facility:[facility]1 Start: 03-03-2022 End: 03-03-[address] WALKER MISC Facility:[facility] Start: 02-26-2022 End: 02-27-2022 ambulatory CHRISTOPHE SANTILLANTHOMAS [facility] Start: 02-26-2022 End: 02-26-2022 Subsequent hospital visit by physician [facility] Start: 10-08-2021 End: 10-08-2021 Emergency department patient visit MD Robin Renee Work Phone: [facility] Start: 09-17-2021 End: 09-27-2021 ambulatory UNKNOWN [...] Start: 11-30-2020 End: 11-30-2020 ambulatory JOSUÉ PARHAM [facility] Procedures Date Procedure Procedure Detail Performing Clinician Start: 06-09-2022 Antibody hiv-1&hiv-2 single result Christophe Sotomayor PAYROLL EXAMINER - UNIT AIDE TECH Work Phone: Start: 06-09-2022 Comprehensive metabo lic panel Christophe Sotomayor PAYROLL EXAMINER - UNIT AIDE TECH Work Phone: Start: 04-09-2022 Comprehensive metabo lic panel Christophe Sotomayor PAYROLL EXAMINER - UNIT AIDE TECH Work Phone: Start: 02-26-2022 Acute hepatitis panel E malik Sotomayor PAYROLL EXAMINER - UNIT AIDE TECH Work Phone: Start: 02-26-2022 Basic metabolic pane l calcium total Christophe Sotomayor PAYROLL EXAMINER - UNIT AIDE TECH Work Phone: Start: 10-08-2021 X-ray of lumbar spin e, two or three views MD Robin Renee Work Phone: Urine culture MD Robin Renee Work Phone: Plan of Treatment Date Care Activity Detail Author Start: 05-11-2023 End: 05-11-2023 Patient encounter procedure 05/11/2023 11:00 AM EST Office Visit [facility] [address] [place] [id number] Alka Galvan PA [address] [place] [address] [facility] Start: 02-27-2023 [facility] Start: 02-27-2023 Colonoscopy DH Colonoscopy Diagnostic (Not Applicable) [facility] Start: 10-14-2021 Influenza vaccination Flu vaccine (# 1) [facility] Start: 2008 DTaP/Tdap/Td vaccine (1 - Tdap) DTaP/Tdap/Td vaccine (1 - Tdap) [facility] Start: 01-16-1990 COVID-19 Vaccine (#1) COVID-19 Vacci ne (#1) [facility] End: 02-26-2022 HIV Screen [facility] Work Phone: Comment on above: Once for 1 Occurrenc es starting 02/26/2022 until 02/26/2022 Patient Education Drug Abuse and Drug Addiction (DC) Urinary Tract Infection, Adult ED [facility] Work Phone: Patient referral [facility] Work Phone: Payers Date Payer Category Payer Medicaid [id number] 23 [id number] 2023 Self-pay 1990 Unknown [id number] 2.16. [id number] 1989 Unknown [id number] 2.16. [id number] 1989 Unknown [id number] 2.16. [id number] 1989 Unknown [id number] 2.16. [id number] 1989 Unknown [id number] 2.16.84 [id number] 1989 Unknown [id number] 2.16.84 [id number] 1989 Unknown [id number] 2.16.84 [id number] 1989 Unknown [id number] 2.16.84 [id number] 1989 Unknown [id number] 2.16.84 [id number] 1989 Unknown [id number] 2.16.8 [id number] 1989 Unknown [id number] 2.16.8 [id number] 1989 Unknown [id number] 2.16.8 [id number] 1989 Unknown [id number] 2.16.8 [id number] 1960 Medicaid [id number] 1960 Medicaid [id number] 1960 Unknown [id number] Unknown [id number] 2.16.8 [id number] Unknown [id number] 2.16.8 [id number] Social History Date Type Detail Facility Tobacco smoking status [facility] Unknown if ever smoked [facility] Work Phone: Start: 1990 Sex Assigned At Female [facility] Start: 10-11-2022 Tobacco smoking status NHIS Tobacco smoking consumption unknown [facility] Start: 1990 Sex Assigned At Not on file B ON [employer] Work Phone: Sex Assigned At [facility] Other Start: 10-11-2022 Alcohol intake Lifetime non-d zaki (finding) [facility] Start: 10-11-2022 Tobacco Comment Positive tobac co useDoes not smoke during [facility] Goals Date Patient Goal Desired Activity /State Clinical Notes 11-30-2020 to 03-26-2023 Telephone Encounter - ALAINA LYNN - 03/26/2023 10:36 AM ESTTelephone Encounter - ALAINA LYNN - 03/26/2023 10:36 AM ESTTelephone Encounter - Elsie Saha - 03/26/2023 10:25 AM EST Note Date & Type Note Facility 03-26-2023 Telephone encounter Note This patient is not a patient here. Called, [facility] on [address] [place] asking for call back to triage. Not sure if this was correct office to call as there are several offices in area. [facility] 03-26-2023 Miscellaneous Notes This patient is not a patient here. Called, [facility] on [address] [place] asking for call back to triage. Not sure if this was correct office to call as there are several offices in area. [facility] services called and said they receive a request for a pap results but they don't have any results for this patient.. documented in this encounter [facility] 03-26-2023 Telephone encounter Note Family health services called and said they receive a request for a pap results but they don't have any results for this patient.. [facility] 12-04-2020 Note DISCHARGE SUMMARY [address] [address] Chiquis Estes Date of : 1990 30 year old female Attending Tc Phipps MD Date of Admission 11/30/2020 Date of Discharge 12/04/20 [Principal Hospital Problem (Final Diagnosis)] Opiate withdrawal (HCC) [Secondary Hospital Problems] H/O section care in third trimester No discharge procedures on file. [facility] 12/11/20 @ 1530 Condition at Discharge Improved Activity No restrictions Diet No restrictions Disposition Home Functional Status Ambulatory Hospital Course Chiquis Estes is a 30 year old at 30w4d [...] elected not to pursue OB care with [facility] and states she has an appointment with Dr. Edwards in [place] next week. She declined to sign release of records so we could send our records to his office. She was discharged home with a family medicine bridge script until her intake appointment at [facility] on 12/11/20. I provided the patient and/or [...] prompt more urgent follow-up Brenda Mensah MD WIRE DRAWING DIE MAKER PGY-1 [facility] 12-04-2020 Note 12/04/20 0900 Assessment and Discharge Planning Evaluation Substance Abuse Treatment Connected Agency [facility] [phone] Discharge Plan and Interventions DISCHARGE PLAN Home [...] She is scheduled for MAT intake at [facility] on 12/11/20 at 3:30 PM. I will schedule a LYFT for pt to return home at the time of discharge. Pt wishes to return home stating her grandmother is ill. Pt referred to [facility], at her request, as an alternative to [facility]. She has received services there in the past and desires to re-establish care. [facility] MAT provider, Cara Mason CNP, will be out of the office the remainder of the week. As a result, the earliest available appointment with her is 12/11/20. Pt aware of and in agreement with plan. Pt provided with documentation noting date, time and location of the above. Marva Echeverria [facility] [phone] Mother Child Dependency Program [facility] 12-04-2020 Note [facility] Referring Provider: Dr. Miller/Dr. Mensah Family Medicine Attending Provider: Dr. Fuller IDENTIFICATION: Chiquis Estes is a 30 year old White female. She is MARITAL STATUS: single. Occupation: unemployed. REASON FOR CONSULT: Continuation of MAT treatment HPI Chiquis Estes is a 30 year old at 30w4d with an EDC of 02/08/2021, by Ultrasound. A Positive, Rubella immune, GBS unknown presented to the hospital for opiate use disorder during requiring MAT treatment with buprenorphine (Subutex). Patient has had an assessment by the inpatient social work team, and upon discharge patient will be following up for continued MAT care at [facility] facility. 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 History: OB History: : 4 Term: 3 [...] Gatherings with Friends and Family: * Attends Christianity Services: * Active Member of Clubs or Organizations: * Attends Club or Organization Meetings: * Marital Status: Intimate Partner Violence: * Fear of Current or Ex-Partner: * Emotionally Abused: * Physically Abused: * Sexually Abused: Current Facility-Administered Medications: * ferrous sulfate tablet TABS, 325 mg, Oral, 2x Daily, Ranjana Miller DO, 325 mg at 12/03/202118 * buprenorphine (SUBUTEX) 8 MG SL tablet, 8 mg, Sublingual, At Bedtime, Ranjana Miller DO, 8 mg at 12/03/20 2146 * [...] (no abdomin (more content not included)... [facility] 12-04-2020 Note APU Progress Note 12/04/2020 [...] with moderate variability, +accels, nodecels, AGA reactive [place]: quiet, acontractile Last U/S (11/30 admission): SIUP, cephalic, EFW 1518g 50%ile, ant placenta, LUCRECIA WNL A/P: Chiquis Estes is a 30 year old at 30w4d [...] her yesterday, intake appointment this morning at [facility], now declining inpatient admission, social work [...] glucola yesterday, today declines Brenda Mensah MD WIRE DRAWING DIE MAKER PGY-1 [facility] [place] [address] [place] I have seen, evaluated and counseled Ms. Estes and I personally obtained the kline and critical portions of the history and physical exam. I reviewed Dr. Mensah's documentation and I agree with the clinical assessment and with the medical decision making as documented above. In brief, Ms. Estes is a at 30w4d weeks gestation with opiate withdrawal. Ms. Estes reports no ongoing agitation, hip or leg [...] use requiring Rx All questions answered. Ms. Estes expressed understanding and agreement with the plan of care. Tc Phipps MD [facility] 12-03-2020 Note 12/03/20 1300 Assessment and Discharge Planning Evaluation READMISSION LESS THAN 30 DAYS No READMISSION RISK SCORE IS Low Risk INTERVIEWED Patient COGNITIVE STATUS Oriented to person, place, time and location LIVING SITUATION Home - Someone else (With mother) Substance Abuse Treatment New PCP VERIFIED Yes ADMISSION INSURANCE Medicaid Medicaid [facility] PRIOR TO ADMISSION No TENTATIVE DISCHARGE PLAN Other (Comment) (Inpatient Treatment at [facility]) READMISSION RISK SCORE SHOULD BE Remain Unchanged MOTHER AND CHILD DEPENDENCY PROGRAM INITIAL ASSESSMENT. PLAN: PT has been accepted for services at [facility]. The [facility] is able to accept her [...] Pt resides with her mother at: [address] [facility] [address] PH: [phone] When was identified: Pt states a few months ago plan: Pt wishes to parent however shared infant would be cared for by FOB. Who referred you to the program: Pt states a friend of hers PNC: Pt states she has been receiving care with Dr. Edwards in [facility]. Insurance Provider: [place] Sexual orientation and Marital Status: Bi-sexual/Single FOB [...] are: Ramos (: 07/05/14) Socorro (: 11/23/15 Wooten (: 10/27/19). History of Use (snorting, IV, [...] this time. She is receiving food stamps. FOLucretia is working at a [employer].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
[2024-04-28 21:04] VITALS: BP 149/104; PULSE 116; TEMP 36.9; O2SAT 96; BMI 20.7
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
[2024-04-28 21:29] LABS: Basophils Absolute Auto 0.1 10^3/uL (0.0-0.1); Basophils Percent Auto 0.5 % (0.2-2.0); Eosinophils Absolute Auto 0.2 10^3/uL (0.0-0.7); Eosinophils Percent Auto 1.7 % (0.9-7.0); Hematocrit 36.8 % (36.0-48.0); Hemoglobin 11.6 g/dL (12.0-16.0); Immature Granulocytes Abs Auto 0.05 10^3/uL (0.00-0.03); Immature Granulocytes Pct Auto 0.4 % (0.0-0.5); Lymphocytes Absolute Auto 4.8 10^3/uL (1.2-3.8); Lymphocytes Percent Auto 41.3 % (20.5-60.0); Mean Corpuscular HGB Conc 31.5 g/dL (29.9-35.2); Mean Corpuscular Hemoglobin 25.4 pg (26.7-34.0); Mean Corpuscular Volume 80.7 fL (81.0-99.0); Mean Platelet Volume 10.5 fL (9.5-13.5); Monocytes Absolute Auto 0.9 10^3/uL (0.3-0.8); Monocytes Percent Auto 7.8 % (1.7-12.0); Neutrophils Absolute Auto 5.6 10^3/uL (1.4-6.5); Neutrophils Percent Auto 48.3 % (43.0-75.0); Platelet Count 388 10^3/uL (150-450); Red Blood Count 4.56 10^6/uL (4.20-5.40); White Blood Count 11.5 10^3/uL (4.0-11.0)
[2024-04-28 21:33] LABS: Bilirubin Urine NEGATIVE (NEGATIVE); Blood Urine TRACE-I (NEGATIVE); Clarity Urine CLEAR (CLEAR); Color Urine YELLOW (YELLOW); Glucose Urine UA NEGATIVE (NEGATIVE); Ketones Urine NEGATIVE (NEGATIVE); Leukocyte Esterase Urine NEGATIVE (NEGATIVE); Nitrite Urine NEGATIVE (NEGATIVE); Protein Urine >=300 mg/dL (NEG/TRACE); Specific Gravity Urine >=1.030 (1.005-1.025); Urobilinogen Urine 0.2 EU/dL (0.2-1.0); pH Urine 5.5 (5.0-9.0)
[2024-04-28] MEDS: 0.9 % SODIUM CHLORIDE 1,000 ML 1000 ML IV (21:33)
[2024-04-28] MEDS: KETOROLAC TROMETHAMINE 30 MG/ML VIAL IVP (21:35)
[2024-04-28] MEDS: FAMOTIDINE/PF 20 MG/2 ML VIAL IV (21:35)
[2024-04-28] MEDS: ONDANSETRON PF 4 MG/2 ML VIAL IV (21:35)
[2024-04-28 21:39] LABS: Bacteria Urine TRACE #/HPF (NONE SEEN); Cast Seen? SEEN #/LPF (NONE SEEN); Coarse Granular Casts Urine FEW; Crystals Seen? None Seen #/HPF (None Seen); Hyaline Casts Urine MANY; Mucus Urine SMALL (NONE SEEN); RBC Urine 0-2 #/HPF (0-2); Squamous Epithelial Cell Urine FEW #/LPF (NONE/RARE); WBC Urine 0-2 #/HPF (NONE SEEN)
[2024-04-28 21:40] LABS: Alanine Aminotransferase 54 U/L (14-59); Albumin Globulin Ratio 1.1; Alkaline Phosphatase 71 U/L (46-116); Aspartate Amino Transferase 27 U/L (15-37); BUN Creatinine Ratio 18.9; Bilirubin Total 0.1 mg/dL (0.2-1.0); Calcium 8.8 mg/dL (8.5-10.1); Carbon Dioxide 27.2 mmol/L (21.0-32.0); Chloride 106 mmol/L (98-107); Estimated GFR (African America >60 (>=60 mL/min/1.73m^2); Estimated GFR (Non-African Ame >60 (>=60 mL/min/1.73m^2); Globulin 3.6 g/dL; Glucose 108 mg/dL (74-106); Potassium 4.2 mmol/L (3.5-5.1); Sodium 144 mmol/L (136-145); Total Protein 7.6 g/dL (6.4-8.2)
== END 2024-04-28 23:36 | disposition home or self-care (01) ==
PROVIDERS: Emergency Provider Emergency Medicine
DX: K52.9 Noninfective gastroenteritis and colitis, unspecified (principal); F17.200 Nicotine dependence, unspecified, uncomplicated; R10.9 Unspecified abdominal pain; G89.29 Other chronic pain
CPT/HCPCS: 36415; 80053; 81001; 83690; 85025; 96361; 96374; 96375; 99285; J1885; J2405; J3490